=== PATIENT | female | born 1935 ===

== ENCOUNTER 2020-11-10 13:16 | Emergency (ER) | payer MEDICARE, SELFPAY ==
--- NOTE | ~2020-11-10 | CT_ITS ---
EXAMINATION: CT ABDOMEN AND PELVIS WITHOUT CONTRAST CLINICAL INFORMATION: Abdominal discomfort COMPARISON: Renal ultrasound 11/12/2019 TECHNIQUE: Multidetector volumetric imaging was performed from the superior aspect of the liver through the pubic symphysis. Sagittal and coronal reformatted images were obtained on the technologist's workstation. This CT examination was performed using dose optimization techniques as appropriate, variously including the following: *Automated exposure control *Adjustment of mA and/or kV according to patient size (this includes techniques or standardized protocols for targeted exams where dose is matched to indication/reason for exam; i.e. extremities or head) *Use of iterative reconstruction technique DLP: 514 mGy-cm FINDINGS: LUNG BASES: The visualized lung bases are unremarkable. LIVER, GALLBLADDER, AND BILIARY TREE: The liver is normal in size, shape, and attenuation. No focal hepatic lesion or biliary ductal dilatation is present. The gallbladder is unremarkable with no evidence of radiopaque gallstones, gallbladder wall thickening, or obvious pericholecystic inflammatory changes. PANCREAS: Unremarkable. SPLEEN: Unremarkable. ADRENAL GLANDS: Unremarkable. KIDNEYS AND URETERS: Multiple low attenuating and hyperdense renal cysts. These are unchanged from renal ultrasound study 11/12/2019. No hydronephrosis. No renal or ureteral calculus. BLADDER: Unremarkable. GASTROINTESTINAL TRACT: There is no acute abnormality. There is no bowel wall thickening /edema. There is no bowel obstruction. There is a moderate volume of stool in the colon. Appendix surgically absent. Surgical clips right lower quadrant of abdomen The small bowel loops are unremarkable. The stomach is normal. There is no hiatal hernia. ABDOMINAL WALL: There is a sharply marginated lobulated soft tissue lesion in the subcutaneous tissues along the left flank. This measures approximately 9 x 4 x 5 cm. There are coarse calcifications within this lesion. This has a density measurement of 15 Hounsfield units in the noncalcified portions of the lesion. May be complex fluid collections. There is no surrounding inflammation. LYMPH NODES: Normal. VASCULAR: Scattered vascular calcifications of aorta and iliac arteries. There is no aneurysm. PELVIC VISCERA: Uterus is atrophic. Uterus is anteverted. Calcified fibroids in the uterus. There is no adnexal abnormality. OSSEOUS STRUCTURES: Multilevel degenerative spondylosis of the spine. CT/CT abdomen pelvis wo con IMPRESSION: There is no acute abnormality the abdomen or the pelvis.
--- NOTE | ~2020-11-10 | XR_ITS ---
EXAMINATION: XR CHEST CLINICAL INFORMATION: Fall. COMPARISON: Chest x-ray 02/24/2020 TECHNIQUE: 2 views of the chest were obtained. 4:56 PM FINDINGS: No significant abnormality is noted involving the heart, lungs, mediastinum, bony thorax or soft tissues. XR/XR chest 2V IMPRESSION: Unremarkable examination.
[2020-11-10 13:45] VITALS: BP 112/82; BP 166/67; PULSE 60; PULSE 71; RESP 16; TEMP 36.1; O2SAT 94; BMI 28.3
--- NOTE | 2020-11-10 14:23 | ED_ITS ---
HPI - Fall General Source: patient, EMS, RN notes reviewed and old records reviewed Mode of arrival: EMS Limitations: no limitations History of Present Illness HPI Narrative: 84-year-old female here today for complaining of bilateral lower rib and upper abdominal pain when bending. Patient reports that she was brus precious her teeth yesterday when she tripped on her PD on a and fell backwards. Patient reports that she fell on her back, denies hitting head or neck. Today when she was bending over she noticed abdominal discomfort across upper abdomen and lower rib area bilaterally. Patient denies dizziness, syncope, presyncope, CP, PND, SOB with or without exertion, nausea, vomiting, diarrhea. Patient reports that she does not have any urinary frequency or burning. Denies any fever or chills. Denies any COVID exposure Related Data Home Medications Medication Instructions Recorded Confirmed amlodipine 1 tab PO DAILY 05/20/20 05/20/20 estradiol 1 g TOPICAL 2XW 05/20/20 05/20/20 furosemide 1 tab PO DAILY 05/20/20 05/20/20 glipizide 1 tab PO QAM 05/20/20 05/20/20 linagliptin [Tradjenta] 1 tab PO DAILY 05/20/20 05/20/20 lisinopril 1 tab PO DAILY 05/20/20 05/20/20 metoprolol succinate 1 tab PO DAILY 05/20/20 05/20/20 risedronate 1 tab PO QWEEK 05/20/20 05/20/20 simvastatin 1 tab PO BEDTIME 05/20/20 05/20/20 Previous Rx's Medication Instructions Recorded apixaban [Eliquis] 5 mg PO Q12H #60 tab 11/05/20 cefpodoxime 100 mg PO BID #14 tab 11/10/20 apixaban [Eliquis] 5 mg PO BID #120 tab 11/11/20 Allergies Allergy/AdvReac Type Severity Reaction Status Date / Time No Known Allergies Allergy Unverified 03/18/20 16:12 [No Known Allergies*] Review of Systems Review of Systems: Constitutional : No Weight loss, No Fever, No Chills, No Night Sweats, No Fatigue, No Malaise ENT/Mouth : No Hearing loss, No Ear Pain, No Nasal Congestion, No Sinus Pain, No Hoarseness, No sore throat, No Rhinorrhea, No Swallowing Difficulty Eyes: No Eye Pain, No Swelling, No Redness, No Foreign Body, No Discharge, No Vision Changes Cardiovascular : No Chest Pain, No SOB, No Dyspnea on Exertion, No Orthopnea, No Edema, No Palpitations Respiratory : No Cough, No Sputum, No Wheezing, No Smoke Exposure, No Dyspnea Gastrointestinal : No Nausea, No Vomiting, No Diarrhea, No Constipation, upper abdominal Pain, No Hematochezia, No Melena Genitourinary : no irregular bleeding, No Dysuria, No Urinary Frequency, No Hematuria, No Urinary Incontinence, No Urgency, No Flank Pain, No Urinary Flow Changes, No Hesitancy Musculoskeletal : No joint pain, No Myalgias, No Joint Swelling Skin : No Skin Lesions, No rash Neuro : No Weakness, No Numbness, No Paresthesias, No Loss of Consciousness, No Dizziness, No Headache Psych : No Anxiety/Panic, No Depression, No SI/HI/AH/VH, No Social Issues, Heme/Lymph: No Bruising, No Bleeding,No Lymphadenopathy Endocrine : No Polyuria, No Polydipsia, No Temperature Intolerance Yes all other systems are reviewed and are negative PMFSH Past Medical History Medical History (Updated 11/11/20 @ 00:00 by Cheri Graham) Acute respiratory distress Arthritis HTN (hypertension) Hypoxemia Pulmonary embolism Type 2 diabetes mellitus Unsteady gait Family History Family History (Updated 05/20/20 @ 09:14 by Sandra Luque) Family/Other Diabetes Social History Social History (Updated 05/20/20 @ 09:14 by Sandra Luque) Alcohol intake: never Smoking Status: Former smoker Smoked in Last 30 Days: No Use of substances other than those prescribed or required for medical reasons: No Advance Directives: No Advance Directives Information Provided: No Physical Exam Vital Signs: Vital Signs: Last Vital Signs Temp 98.6 F 11/10/20 19:25 Pulse 70 11/10/20 19:25 Resp 18 11/10/20 19:25 BP 157/96 H 11/10/20 19:25 Pulse Ox 97 11/10/20 19:25 Body Mass Index 28.3 Const: General: healthy appearing, no acute distress and well developed Nutritional Appearance: well nourished Orientation/consciousness: patient oriented x3 Neck: Neck: Yes normal visual inspection, Yes full ROM and Yes trachea midline Thyroid: Thyroid normal Chest: Chest palpation & inspection: normal inspection of the chest and normal palpation of entire chest wall Resp: Auscultation: clear to auscultation bilaterally Cardio: Rate: regular rate Rhythm: regular rhythm GI: Inspection: Yes normal to inspection and No distended Palpation (GI): No hepatosplenomegaly present Auscultation: normal bowel sounds Skin: General skin exam: elasticity normal, turgor normal and dry skin Neuro: General: patient oriented x3 Course Course Course Narrative: 84-year-old female here today after sustaining fall yesterday. Patient tripped on her pajamas while brushing her teeth. She fell backwards and hit her upper and lower back on the bathtub. Denies hitting head. Patient examined no bruises on her back or on her abdomen. Patient reports that she was bending over today and developed sharp pain across her upper abdomen and lower r ibs bilaterally. Patient is on Eliquis diagnosed with PE. Has an appointment with her jersey knitter in a couple weeks. Reevaluation(s) Reevaluation #1: Patients labs negative for leukocytosis or anemia. Patient's kidney functions elevated today BUN 35, creatinine 1.7 to last creatinine from August of 2019 was 1.17. Patient is on Eliquis full dose. I will wait for her CT scan will order without a contrast as her kidney functions are slightly elevated. Will order chest x-ray. Patient reports that her pain is under c ontrol denies any additional symptoms. Reevaluation #2: Chest x-ray negative for any abnormalities order 2nd dose of normal saline 500 mL. I will repeat kidney functions as patient is on full therapy of Eliquis. Awaiting for CT scan results. Patient's condition has not changed. Denies any other additional symptoms. Patient is comfortable at this time. Reevaluation #3: CT scan does not show any acuity. Patient's urine is positive for bacteria. We will treat her empirically. Will give her 1st dose here and then send her home with antibiotics. Patient is agreeable to plan of care and verbalizes understanding. - Fall Medical Records Attestation: I reviewed the patient's medical records. Lab Data Result diagrams: 11/10/20 15:09 11/10/20 18:03 Labs: Lab Results 11/10/20 11/10/20 11/10/20 Range/Units 15:09 15:09 15:09 WBC 8.1 (4.8-10.8) X10*3/uL RBC 4.54 (4.20-5.50) X10*6/uL Hgb 12.4 (12.0-16.0) g/dl Hct 38.2 (37-47) % MCV 84.1 (80-98) fL MCH 27.3 (27.0-33.0) pg MCHC 32.5 (31.0-35.0) g/dl RDW 14.6 (11.0-16.0) % Plt Count 145 L (160-400) X10*3/uL MPV 9.8 (9.4-12.3) fL Immature Gran % (Auto) 0.7 H (0.0-0.4) % Neut % (Auto) 79.1 H (45-73) % Lymph % (Auto) 11.2 L (20-40) % [place] % (Auto) 7.6 (2-11) % Eos % (Auto) 1.0 (0-4) % Baso % (Auto) 0.4 (0-2) % Lymph # (Auto) 0.9 L (1.2-4.9) X10*3/uL [place] # (Auto) 0.6 (0.1-1.2) X10*3/uL Eos # (Auto) 0.1 (0.0-0.4) X10*3/uL Baso # (Auto) 0.0 (0.0-0.2) X10*3/uL Abs Immat Gran (auto) 0.06 H (0.00-0.03) X10*3/uL Absolute Neuts (auto) 6.4 (2.0-8.3) X10*3/uL Absolute Nucleated RBC 0.000 (0.0-0.012) X10*3/uL Nucleated RBC % (auto) 0.0 (0.0-0.2) /100WBC Sodium 137 (135-145) mmol/L Potassium 3.9 (3.3-5.1) mmol/L Chloride 100 (96-108) mmol/L Carbon Dioxide 25 (22-29) mmol/L Anion Gap 16 (12-20) BUN 35 H D (9-16) mg/dL Creatinine 1.72 H (0.5-1.4) mg/dL Estim Creat Clear Calc 21.9 Estimated GFR 28 Random Glucose 175 H (60-115) mg/dL Calcium 9.1 D (8.4-10.2) mg/dL Total Bilirubin 1.3 H (0.0-1.0) mg/dL AST 18 (5-31) U/L ALT 10 (0-31) U/L Alkaline Phosphatase 79 D (39-117) U/L Total Protein 7.3 (6.5-8.0) g/dL Albumin 3.9 (3.5-5.0) g/dL Lipase 33 (8-78) U/L Urine Color YELLOW Urine Appearance HAZY Urine pH 5.5 (5.0-8.0) Ur Specific [place] 1.015 (1.005-1.025) Urine Protein NEG (NEG-TRACE) MG/DL Urine Glucose (UA) NEG (NEG) MG/DL Urine Ketones NEG (NEG) MG/DL Urine Blood 1+ H (NEG) Urine Nitrite NEG (NEG) Ur Leukocyte Esterase 3+ H (NEG) Urine RBC 1-4 (0) /HPF Urine WBC 15-29 H (0-4) /HPF Ur Squamous Epith Cells 1+ /LPF Urine Bacteria 3+ /LPF /06/21 Range/Units 18:03 WBC (4.8-10.8) X10*3/uL RBC (4.20-5.50) X10*6/uL Hgb (12.0-16.0) g/dl Hct (37-47) % MCV (80-98) fL MCH (27.0-33.0) pg MCHC (31.0-35.0) g/dl RDW (11.0-16.0) % Plt Count (160-400) X10*3/uL MPV (9.4-12.3) fL Immature Gran % (Auto) (0.0-0.4) % Neut % (Auto) (45-73) % Lymph % (Auto) (20-40) % [place] % (Auto) (2-11) % Eos % (Auto) (0-4) % Baso % (Auto) (0-2) % Lymph # (Auto) (1.2-4.9) X10*3/uL [place] # (Auto) (0.1-1.2) X10*3/uL Eos # (Auto) (0.0-0.4) X10*3/uL Baso # (Auto) (0.0-0.2) X10*3/uL Abs Immat Gran (auto) (0.00-0.03) X10*3/uL Absolute Neuts (auto) (2.0-8.3) X10*3/uL Absolute Nucleated RBC (0.0-0.012) X10*3/uL Nucleated RBC % (auto) (0.0-0.2) /100WBC Sodium (135-145) mmol/L Potassium (3.3-5.1) mmol/L Chloride (96-108) mmol/L Carbon Dioxide (22-29) mmol/L Anion Gap (12-20) BUN 34 H (9-16) mg/dL Creatinine 1.51 H (0.5-1.4) mg/dL Estim Creat Clear Calc 25.0 Estimated GFR 33 Random Glucose (60-115) mg/dL Calcium (8.4-10.2) mg/dL Total Bilirubin (0.0-1.0) mg/dL AST (5-31) U/L ALT (0-31) U/L Alkaline Phosphatase (39-117) U/L Total Protein (6.5-8.0) g/dL Albumin (3.5-5.0) g/dL Lipase (8-78) U/L Urine Color Urine Appearance Urine pH (5.0-8.0) Ur Specific [place] (1.005-1.025) Urine Protein (NEG-TRACE) MG/DL Urine Glucose (UA) (NEG) MG/DL Urine Ketones (NEG) MG/DL Urine Blood (NEG) Urine Nitrite (NEG) Ur Leukocyte Esterase (NEG) Urine RBC (0) /HPF Urine WBC (0-4) /HPF Ur Squamous Epith Cells /LPF Urine Bacteria /LPF Imaging Data Chest x-ray: Radiologist's impression: FINDINGS: No significant abnormality is noted involving the heart, lungs, mediastinum, bony thorax or soft tissues. XR/XR chest 2V IMPRESSION: Unremarkable examination. CT scan - abdomen: Radiologist's impression: FINDINGS: LUNG BASES: The visualized lung bases are unremarkable. LIVER, GALLBLADDER, AND BILIARY TREE: The liver is normal in size, shape, and attenuation. No focal hepatic lesion or biliary ductal dilatation is present. The gallbladder is unremarkable with no evidence of radiopaque gallstones, gallbladder wall thickening, or obvious pericholecystic inflammatory changes. PANCREAS: Unremarkable. SPLEEN: Unremarkable. ADRENAL GLANDS: Unremarkable. KIDNEYS AND URETERS: Multiple low attenuating and hyperdense renal cysts. These are unchanged from renal ultrasound study 11/12/2019. No hydronephrosis. No renal or ureteral calculus. BLADDER: Unremarkable. GASTROINTESTINAL TRACT: There is no acute abnormality. There is no bowel wall thickening /edema. There is no bowel obstruction. There is a moderate volume of stool in the colon. Appendix surgically absent. Surgical clips right lower quadrant of abdomen The small bowel loops are unremarkable. The stomach is normal. There is no hiatal hernia. ABDOMINAL WALL: There is a sharply marginated lobulated soft tissue lesion in the subcutaneous tissues along the left flank. This measures approximately 9 x 4 x 5 cm. There are coarse calcifications within this lesion. This has a density measurement of 15 Hounsfield units in the noncalcified portions of the lesion. May be complex fluid collections. There is no surrounding inflammation. LYMPH NODES: Normal. VASCULAR: Scattered vascular calcifications of aorta and iliac arteries. There is no aneurysm. PELVIC VISCERA: Uterus is atrophic. Uterus is anteverted. Calcified fibroids in the uterus. There is no adnexal abnormality. OSSEOUS STRUCTURES: Multilevel degenerative spondylosis of the spine. CT/CT abdomen pelvis wo con IMPRESSION: There is no acute abnormality the abdomen or the pelvis. Discharge Plan Discharge Clinical Impression: Contusion, Fall Patient Disposition: Home, Self-Care Instructions: Fall Prevention for Older Adults (ED), Contusion in Adults (ED) Additional Instructions: You were seen here today after sustaining fall yesterday. You were complaining of upper abdominal discomfort when bending. Your chest x-ray was negative for any acute findings. Your CT scan also was negative for any acute findings. Your kidney functions were elevated. We hydrate you here with 1 L of fluids however your kidneys improved but continues to be elevated. You are taking m edication to thin your blood please follow up with Dr. Alvarado at [phone]. You have a mild urinary tract infection I am putting you on antibiotic please take it as directed. Make sure you increase fluids intake. You may return to emergency department if you experience worsening symptoms or if you experience any other concerning symptoms. Prescriptions: New cefpodoxime 100 mg tablet 100 mg PO BID Qty: 14 RF: 0 No Action metoprolol succinate 50 mg tablet extended release 24 hr 1 tab PO DAILY RF: 0 amlodipine 5 mg tablet 1 tab PO DAILY RF: 0 glipizide 2.5 mg tablet extended release 24hr 1 tab PO QAM RF: 0 simvastatin 20 mg tablet 1 tab PO BEDTIME RF: 0 lisinopril 10 mg tablet 1 tab PO DAILY RF: 0 furosemide 20 mg tablet 1 tab PO DAILY RF: 0 estradiol 0.01 % (0.1 mg/gram) cream 1 g topical 2XW RF: 0 risedronate 35 mg tablet 1 tab PO QWEEK RF: 0 Tradjenta 5 mg tablet 1 tab PO DAILY RF: 0 Eliquis 5 mg tablet 5 mg PO Q12H Qty: 60 RF: 6 Eliquis 5 mg Tablet 5 mg PO BID Qty: 120 RF: 4 Interventions: ED Discharge Assessment Last Done: 11/10/20 19:54 Discharge Date/Time: 11/10/20 19:58
--- NOTE | 2020-11-10 14:40 | PC.NURSE ---
pt's Jonh ([phone]) called for an update on his .
--- NOTE | 2020-11-10 14:44 | ECG_ITS ---
Test Reason : FALL Blood Pressure : / mmHG Vent. Rate : 069 BPM Atrial Rate : 069 BPM P-R Int : 242 ms QRS Dur : 084 ms QT Int : 434 ms P-R-T Axes : 073 013 044 degrees QTc Int : 465 ms Sinus rhythm with 1st degree A-V block Otherwise normal ECG When compared with ECG of 26-FEB-2020 14:40, Nonspecific T wave abnormality no longer evident in Anterior leads Referred By: Koki Del Castillo Electronically Signed By:JULIO CESAR LEDEZMA MD
[2020-11-10] MEDS: 0.9 % Sodium Chloride 500 ML IV ×2 (15:11→17:30)
[2020-11-10 15:16] LABS: MANUAL DIFF FLAG NO
[2020-11-10 15:19] LABS: Basophils Percent Auto 0.4 % (0-2); Eosinophils Absolute Auto 0.1 X10*3/uL (0.0-0.4); Hematocrit 38.2 % (37-47); Hemoglobin 12.4 g/dl (12.0-16.0); Imm Gran Abs Auto 0.06 X10*3/uL (0.00-0.03); Imm Gran Pct Auto 0.7 % (0.0-0.4); Lymphocytes Absolute Auto 0.9 X10*3/uL (1.2-4.9); Lymphocytes Percent Auto 11.2 % (20-40); Mean Corpuscular HGB Conc 32.5 g/dl (31.0-35.0); Mean Corpuscular Hemoglobin 27.3 pg (27.0-33.0); Mean Corpuscular Volume 84.1 fL (80-98); Mean Platelet Volume 9.8 fL (9.4-12.3); Monocytes Absolute Auto 0.6 X10*3/uL (0.1-1.2); Monocytes Percent Auto 7.6 % (2-11); Neutrophils Absolute Auto 6.4 X10*3/uL (2.0-8.3); Neutrophils Percent Auto 79.1 % (45-73); Platelet Count 145 X10*3/uL (160-400); Red Blood Count 4.54 X10*6/uL (4.20-5.50); Red Cell Distribution Width 14.6 % (11.0-16.0); White Blood Count 8.1 X10*3/uL (4.8-10.8)
[2020-11-10 15:21] LABS: Appearance Urine HAZY; Color Urine YELLOW; Glucose Urine UA NEG (NEG); Leukocyte Esterase Urine 3+ (NEG); Nitrite Urine NEG (NEG); PH 5.5 (5.0-8.0); Specific Gravity - Urine 1.015 (1.005-1.025); UACC Culture Trigger YES; Urine Blood 1+ (NEG); Urine Ketones NEG (NEG); Urine Protein NEG (NEG-TRACE)
[2020-11-10 15:31] LABS: Bacteria Urine 3+ /LPF; Squamous Epithelial Cell Urine 1+ /LPF
[2020-11-10 15:41] LABS: Alanine Aminotransferase 10 U/L (0-31); Albumin Level 3.9 g/dL (3.5-5.0); Alkaline Phosphatase 79 U/L (39-117); Anion Gap 16 (12-20); Aspartate Amino Transferase 18 U/L (5-31); Bilirubin Total 1.3 mg/dL (0.0-1.0); Blood Urea Nitrogen 35 mg/dL (9-16); Calcium 9.1 mg/dL (8.4-10.2); Carbon Dioxide 25 mmol/L (22-29); Chloride 100 mmol/L (96-108); Creatinine Clr Calc Pharmacy 21.9; Estimated Glomerular Filt Rate 28; Glucose Random 175 mg/dL (60-115); Potassium 3.9 mmol/L (3.3-5.1); Sodium 137 mmol/L (135-145); Total Protein 7.3 g/dL (6.5-8.0)
[2020-11-10 16:00] VITALS: BP 149/84; PULSE 69; RESP 18; O2SAT 98
[2020-11-10 16:58] LABS: Lipase 33 U/L (8-78)
[2020-11-10 18:34] LABS: Blood Urea Nitrogen 34 mg/dL (9-16); Estimated Glomerular Filt Rate 33
[2020-11-10 19:25] VITALS: BP 157/96; PULSE 70; RESP 18; TEMP 37; O2SAT 97
== END 2020-11-10 19:58 | disposition home or self-care (01) ==
PROVIDERS: Nurse Practitioner Family; Emergency Provider Internal Medicine; PCP Internal Medicine
DX: S30.1XXA Contusion of abdominal wall, initial encounter (principal); R07.81 Pleurodynia; I10 Essential (primary) hypertension; R10.9 Unspecified abdominal pain; W01.0XXA Fall on same level from slipping, tripping and stumbling without subsequent striking against object, initial encounter; Y93.9 Activity, unspecified; Y92.9 Unspecified place or not applicable; Y99.9 Unspecified external cause status; Z79.899 Other long term (current) drug therapy; Z87.891 Personal history of nicotine dependence
CPT/HCPCS: 36415; 71046; 74176; 80053; 81001; 81003; 82565; 83690; 84520; 85025; 87086; 87088; 87186; 93005; 96360; 99285

== ENCOUNTER 2021-07-07 09:51 | Outpatient (REF) | payer MEDICARE, SELFPAY ==
[2021-07-07 14:20] LABS: Estimated Average Glucose 197 mg/dL; Hemoglobin A1c % 8.5 %
[2021-07-07 14:30] LABS: Alanine Aminotransferase 9 U/L (0-31); Albumin Level 3.8 g/dL (3.5-5.0); Alkaline Phosphatase 83 U/L (39-117); Anion Gap 14 (12-20); Aspartate Amino Transferase 16 U/L (5-31); Bilirubin Total 1.2 mg/dL (0.0-1.0); Blood Urea Nitrogen 21 mg/dL (9-16); Calcium 8.9 mg/dL (8.4-10.2); Carbon Dioxide 21 mmol/L (22-29); Chloride 107 mmol/L (96-108); Estimated Glomerular Filt Rate 40; Glucose Random 272 mg/dL (60-115); Potassium 4.1 mmol/L (3.3-5.1); Sodium 138 mmol/L (135-145)
== END 2021-07-07 09:52 | disposition home or self-care (01) ==
LOC: HO.10HDL 09:51
PROVIDERS: Visit Provider Internal Medicine
DX: E11.65 Type 2 diabetes mellitus with hyperglycemia (principal); E11.22 Type 2 diabetes mellitus with diabetic chronic kidney disease; I12.9 Hypertensive chronic kidney disease with stage 1 through stage 4 chronic kidney disease, or unspecified chronic kidney disease; N18.9 Chronic kidney disease, unspecified; E78.00 Pure hypercholesterolemia, unspecified; I26.99 Other pulmonary embolism without acute cor pulmonale
CPT/HCPCS: 36415; 80053; 83036

== ENCOUNTER 2021-10-10 07:43 | Outpatient (REF) | payer MEDICARE, SELFPAY ==
[2021-10-10 10:39] LABS: MANUAL DIFF FLAG NO
[2021-10-10 10:45] LABS: Basophils Percent Auto 0.4 % (0-2); Eosinophils Absolute Auto 0.1 X10*3/uL (0.0-0.4); Eosinophils Percent Auto 1.8 % (0-4); Hematocrit 34.7 % (37.0-47.0); Hemoglobin 10.6 g/dl (12.0-16.0); Imm Gran Abs Auto 0.01 X10*3/uL (0.00-0.03); Imm Gran Pct Auto 0.2 % (0.0-0.4); Lymphocytes Absolute Auto 1.3 X10*3/uL (1.2-4.9); Lymphocytes Percent Auto 25.9 % (20-40); Mean Corpuscular HGB Conc 30.5 g/dl (31.0-35.0); Mean Corpuscular Hemoglobin 25.2 pg (27.0-33.0); Mean Corpuscular Volume 82.4 fL (80.0-98.0); Mean Platelet Volume 10.2 fL (9.4-12.3); Monocytes Absolute Auto 0.5 X10*3/uL (0.1-1.2); Monocytes Percent Auto 10.1 % (2-11); Neutrophils Absolute Auto 3.1 x10*3/uL (2.0-8.3); Neutrophils Percent Auto 61.6 % (45-73); Platelet Count 186 X10*3/uL (160-400); Red Blood Count 4.21 X10*6/uL (4.20-5.50); Red Cell Distribution Width 15.3 % (11.0-16.0); White Blood Count 5.1 X10*3/uL (4.8-10.8)
[2021-10-10 10:58] LABS: Alanine Aminotransferase 15 U/L (0-31); Albumin Level 3.7 g/dL (3.5-5.0); Alkaline Phosphatase 81 U/L (39-117); Anion Gap 14 (12-20); Aspartate Amino Transferase 18 U/L (5-31); Blood Urea Nitrogen 17 mg/dL (9-16); Carbon Dioxide 21 mmol/L (22-29); Chloride 106 mmol/L (96-108); Cholesterol 136 mg/dL; Estimated Glomerular Filt Rate 45; Glucose Random 204 mg/dL (60-115); HDL Cholesterol 53 mg/dL; LDL Cholesterol Calculated 61 mg/dl; Potassium 4.3 mmol/L (3.3-5.1); Sodium 137 mmol/L (135-145); Total Protein 6.8 g/dL (6.5-8.0); Triglycerides 110 mg/dL
[2021-10-10 11:06] LABS: Estimated Average Glucose 232 mg/dL; Hemoglobin A1c % 9.7 %
[2021-10-10 11:19] LABS: Thyroid Stimulating Hormone 1.92 uIU/mL (0.32-4.0)
[2021-10-10 11:27] LABS: Vitamin B12 155 pg/mL (200-900)
[2021-10-10 12:09] LABS: Creatinine Urine 52.83 mg/dL; Microalbum/Creatinine Ratio Ur 100.3 ug/mg cr
== END 2021-10-10 07:44 | disposition home or self-care (01) ==
LOC: HO.10HDL 07:43
PROVIDERS: Visit Provider Internal Medicine
DX: E11.65 Type 2 diabetes mellitus with hyperglycemia (principal); E78.00 Pure hypercholesterolemia, unspecified; I26.99 Other pulmonary embolism without acute cor pulmonale; I12.9 Hypertensive chronic kidney disease with stage 1 through stage 4 chronic kidney disease, or unspecified chronic kidney disease; N18.9 Chronic kidney disease, unspecified; E11.22 Type 2 diabetes mellitus with diabetic chronic kidney disease
CPT/HCPCS: 36415; 80053; 80061; 82043; 82607; 83036; 84443; 85025

== ENCOUNTER 2022-01-05 08:26 | Outpatient (REF) | payer MEDICARE, SELFPAY ==
[2022-01-05 10:22] LABS: MANUAL DIFF FLAG NO
[2022-01-05 10:27] LABS: Basophils Percent Auto 0.4 % (0-2); Eosinophils Absolute Auto 0.1 X10*3/uL (0.0-0.4); Eosinophils Percent Auto 0.9 % (0-4); Hematocrit 34.9 % (37.0-47.0); Hemoglobin 10.8 g/dl (12.0-16.0); Imm Gran Abs Auto 0.02 X10*3/uL (0.00-0.03); Imm Gran Pct Auto 0.3 % (0.0-0.4); Lymphocytes Absolute Auto 1.4 X10*3/uL (1.2-4.9); Lymphocytes Percent Auto 19.9 % (20-40); Mean Corpuscular HGB Conc 30.9 g/dl (31.0-35.0); Mean Corpuscular Hemoglobin 24.8 pg (27.0-33.0); Mean Platelet Volume 9.8 fL (9.4-12.3); Monocytes Absolute Auto 0.5 X10*3/uL (0.1-1.2); Monocytes Percent Auto 7.8 % (2-11); Neutrophils Absolute Auto 4.8 x10*3/uL (2.0-8.3); Neutrophils Percent Auto 70.7 % (45-73); Platelet Count 215 X10*3/uL (160-400); Red Blood Count 4.36 X10*6/uL (4.20-5.50); Red Cell Distribution Width 15.9 % (11.0-16.0); White Blood Count 6.8 X10*3/uL (4.8-10.8)
[2022-01-05 10:42] LABS: Alanine Aminotransferase 10 U/L (0-31); Albumin Level 3.7 g/dL (3.5-5.0); Alkaline Phosphatase 97 U/L (39-117); Anion Gap 11 (12-20); Aspartate Amino Transferase 15 U/L (5-31); Blood Urea Nitrogen 18 mg/dL (9-16); Calcium 8.7 mg/dL (8.4-10.2); Carbon Dioxide 24 mmol/L (22-29); Chloride 106 mmol/L (96-108); Estimated Glomerular Filt Rate 49; Glucose Fasting 220 mg/dL (60-99); Potassium 4.3 mmol/L (3.3-5.1); Sodium 137 mmol/L (135-145); Total Protein 6.9 g/dL (6.5-8.0)
[2022-01-05 10:44] LABS: Estimated Average Glucose 212 mg/dL
[2022-01-05 11:03] LABS: Ferritin 22 ng/mL (10-250)
[2022-01-05 11:07] LABS: Vitamin B12 378 pg/mL (200-900)
== END 2022-01-05 08:27 | disposition home or self-care (01) ==
LOC: HO.10HDL 08:26
PROVIDERS: Visit Provider Internal Medicine
DX: Z00.01 Encounter for general adult medical examination with abnormal findings (principal); D51.9 Vitamin B12 deficiency anemia, unspecified; E11.65 Type 2 diabetes mellitus with hyperglycemia; R80.8 Other proteinuria
CPT/HCPCS: 36415; 80053; 82607; 82728; 83036; 85025

== ENCOUNTER 2022-04-12 09:52 | Outpatient (REF) | payer MEDICARE, SELFPAY ==
[2022-04-12 10:30] LABS: MANUAL DIFF FLAG NO
[2022-04-12 10:37] LABS: Basophils Percent Auto 0.6 % (0-2); Eosinophils Percent Auto 0.6 % (0-4); Hematocrit 34.8 % (37.0-47.0); Hemoglobin 10.7 g/dl (12.0-16.0); Imm Gran Abs Auto 0.02 X10*3/uL (0.00-0.03); Imm Gran Pct Auto 0.4 % (0.0-0.4); Lymphocytes Percent Auto 18.6 % (20-40); Mean Corpuscular HGB Conc 30.7 g/dl (31.0-35.0); Mean Corpuscular Hemoglobin 24.7 pg (27.0-33.0); Mean Corpuscular Volume 80.4 fL (80.0-98.0); Mean Platelet Volume 9.3 fL (9.4-12.3); Monocytes Absolute Auto 0.6 X10*3/uL (0.1-1.2); Monocytes Percent Auto 10.7 % (2-11); Neutrophils Absolute Auto 3.8 x10*3/uL (2.0-8.3); Neutrophils Percent Auto 69.1 % (45-73); Platelet Count 258 X10*3/uL (160-400); Red Blood Count 4.33 X10*6/uL (4.20-5.50); Red Cell Distribution Width 18.4 % (11.0-16.0); White Blood Count 5.4 X10*3/uL (4.8-10.8)
[2022-04-12 10:42] LABS: Estimated Average Glucose 203 mg/dL; Hemoglobin A1c % 8.7 %
[2022-04-12 12:23] LABS: Alanine Aminotransferase 7 U/L (0-31); Albumin Level 3.7 g/dL (3.5-5.0); Alkaline Phosphatase 136 U/L (39-117); Anion Gap 18 (12-20); Aspartate Amino Transferase 11 U/L (5-31); Blood Urea Nitrogen 22 mg/dL (9-16); Calcium 8.9 mg/dL (8.4-10.2); Carbon Dioxide 21 mmol/L (22-29); Chloride 104 mmol/L (96-108); Estimated Glomerular Filt Rate 38; Glucose Fasting 363 mg/dL (60-99); Potassium 5.7 mmol/L (3.3-5.1); Sodium 137 mmol/L (135-145); Total Protein 7.1 g/dL (6.5-8.0)
== END 2022-04-12 09:53 | disposition home or self-care (01) ==
LOC: HO.10HDL 09:52
PROVIDERS: Visit Provider Internal Medicine
DX: E11.65 Type 2 diabetes mellitus with hyperglycemia (principal); I12.9 Hypertensive chronic kidney disease with stage 1 through stage 4 chronic kidney disease, or unspecified chronic kidney disease; E11.22 Type 2 diabetes mellitus with diabetic chronic kidney disease; D63.1 Anemia in chronic kidney disease; N18.9 Chronic kidney disease, unspecified; D64.89 Other specified anemias
CPT/HCPCS: 36415; 80053; 83036; 85025

== ENCOUNTER 2022-07-06 09:02 | Emergency (ER) | payer MEDICARE, SELFPAY ==
[2022-07-06 09:20] VITALS: BP 128/51; PULSE 90; RESP 18; TEMP 36.1; O2SAT 98; BMI 26.3
== END 2022-07-06 12:07 | disposition left against medical advice (07) ==
PROVIDERS: Emergency Provider Emergency Medicine; PCP Internal Medicine
DX: R33.9 Retention of urine, unspecified (principal)
CPT/HCPCS: 99281

== ENCOUNTER 2022-07-06 11:58 | Emergency (ER) | payer MEDICARE, SELFPAY ==
--- NOTE | ~2022-07-06 | CT_ITS ---
EXAMINATION: CT ABDOMEN AND PELVIS WITHOUT CONTRAST CLINICAL INFORMATION: Unable to urinate with constipation COMPARISON: CT abdomen pelvis 11/10/2020 TECHNIQUE: Multidetector volumetric imaging was performed from the superior aspect of the liver through the pubic symphysis. Sagittal and coronal reformatted images were obtained on the technologist's workstation. This CT examination was performed using dose optimization techniques as appropriate, variously including the following: *Automated exposure control *Adjustment of mA and/or kV according to patient size (this includes techniques or standardized protocols for targeted exams where dose is matched to indication/reason for exam; i.e. extremities or head) *Use of iterative reconstruction technique DLP: 460 mGy-cm FINDINGS: LUNG BASES: The visualized lung bases are unremarkable. LIVER, GALLBLADDER, AND BILIARY TREE: The liver is normal in size, shape, and attenuation. No focal hepatic lesion or biliary ductal dilatation is present. The gallbladder is unremarkable with no evidence of radiopaque gallstones, gallbladder wall thickening, or obvious pericholecystic inflammatory changes. PANCREAS: Unremarkable. SPLEEN: Unremarkable. ADRENAL GLANDS: Unremarkable. KIDNEYS AND URETERS: In the left kidney, 2 Bosniak class I cysts are present the largest measuring 2.7 cm at the lower pole. These need no additional imaging or follow-up. No solid renal masses. No calcifications. No hydronephrosis. In the right kidney, there are 2 Bosniak class I simple cysts present along with 2 Bosniak class II renal cysts present measuring 52 and 79 Hounsfield units each. No renal calculi, solid masses or hydronephrosis is seen. BLADDER: There is mild descent of the bladder which is at the anterior aspect of the pubic symphysis with thickening of the wall at the base measuring almost a centimeter in thickness. Malignancy cannot be entirely excluded but may be secondary to chronic inflammation. There is also mild prolapse of the vagina, cervix and uterus present as well. GASTROINTESTINAL TRACT: A small hiatal hernia is present rThe small and large bowel are unremarkable. The appendix is unremarkable. ABDOMINAL WALL: No significant hernia is appreciated. Large calcified subcutaneous mass left buttock measuring 5.0 x 4.0 x 5.5 cm, probably an old hematoma LYMPH NODES: No retroperitoneal lymphadenopathy. VASCULAR: Calcific plaque without aneurysm. PELVIC VISCERA: There is mild prolapse of the uterus. There is an exophytic pedunculated calcified posterior 2.2 cm fibroid. An abnormal adnexal mass is not seen. OSSEOUS STRUCTURES: Severe degenerative changes present in the spine most marked from L1 through L4 and at L5-S1 CT/CT abdomen pelvis wo IV con IMPRESSION: 1. There is mild descent of the bladder which is at the inferior aspect of the pubic symphysis on these nonstress views which I suspect with Valsalva and attempts to void significantly worsens. There is thickening of the bladder wall at its base measuring almost a centimeter in thickness. Malignancy cannot be entirely excluded but this may be secondary to chronic inflammation. There is also mild prolapse of the vagina, cervix and uterus present as well. All of this is probably related to the patient's voiding issues and urologic consultation is recommended with possible cystoscopy or pelvic MR. 2. Incidental note made of a small hiatal hernia, calcified left buttock mass, severe degenerative changes in the spine and other findings described above. Fleischner guidelines were followed.
--- NOTE | ~2022-07-06 | XR_ITS ---
EXAMINATION: XR ABDOMEN KUB CLINICAL INDICATION: Constipation COMPARISON: CT of November 10, 2020 TECHNIQUE: AP view of the abdomen. FINDINGS: There is scoliosis of the lumbar spine convex left with multilevel degenerative disc disease and spurring. Psoas margins are intact. Patient status post previous right lower quadrant surgery with clips in place. There is some calcification seen adjacent to the right L2 and L3 vertebral bodies which on previous CT scan are seen to represent densities related to the pancreas. There is a moderate stool burden present without dilated loops of large or small bowel. Soft tissue calcification is seen adjacent to the left iliac crest. There is a calcified fibroid seen within the pelvis. XR/XR KUB IMPRESSION: Moderate colonic stool burden. Degenerative change of the lumbar spine.
[2022-07-06 13:10] VITALS: BP 147/55; PULSE 85; RESP 18; TEMP 36.1; O2SAT 99; BMI 25.6
--- NOTE | 2022-07-06 13:15 | ED.FEMALEGU ---
HPI - Female Genitourinary General Source: patient <Brandy Connor MD - Last Filed: 07/06/22 20:57> Mode of arrival: ambulatory <Brandy Connor MD - Last Filed: 07/06/22 20:57> Limitations: no limitations <Brandy Connor MD - Last Filed: 07/06/22 20:57> History of Present Illness HPI Narrative: Patient comes to the emergency room complaining of constipation for 4 days. Patient states that <Brandy Connor MD - Last Filed: 07/06/22 20:57> Related Data Home medications: Home Medications Medication Instructions Recorded Confirmed amlodipine 5 mg tablet 1 tab PO DAILY 05/20/20 06/13/22 estradiol 0.01% (0.1 mg/gram) 1 g topical 2XW 05/20/20 06/13/22 vaginal cream furosemide 20 mg tablet 1 tab PO DAILY 05/20/20 06/13/22 glipizide 2.5 mg tablet, extended 1 tab PO QAM 05/20/20 06/13/22 release 24 hr lisinopril 10 mg tablet 1 tab PO DAILY 05/20/20 06/13/22 metoprolol succinate 50 mg 1 tab PO DAILY 05/20/20 06/13/22 tablet,extended release 24 hr simvastatin 20 mg tablet 1 tab PO BEDTIME 05/20/20 06/13/22 Previous Rx's Medication Instructions Recorded apixaban 5 mg tablet (Eliquis) 5 mg PO BID #120 tabs 10/05/21 cefuroxime axetil 500 mg tablet 500 mg PO BID #14 tabs 07/06/22 polyethylene glycol 3350 17 17 g PO DAILY #238 grams 07/06/22 gram/dose oral powder (Miralax) <ONEIDA Casas - Last Filed: 07/10/22 20:59> Allergies/Adverse reactions: Allergies Allergy/AdvReac Type Severity Reaction Status Date / Time No Known Allergies Allergy Verified 07/06/22 13:14 [No Known Allergies*] <ONEIDA Casas - Last Filed: 07/10/22 20:59> PMFSH Past Medical History Medical History: Medical History Acute respiratory distress Arthritis HTN (hypertension) Hypoxemia Pulmonary embolism Type 2 diabetes mellitus Unsteady gait <SAUD CasasBC - Last Filed: 07/10/22 20:59> Family History Family History: Family History (Updated 06/13/22 @ 14:16 by Yara Valerio CMA) Family/Other Diabetes Other No family history of cancer <SAUD CasasBC - Last Filed: 07/10/22 20:59> Social History Social History: Social History (Updated 06/13/22 @ 14:16 by Yara Valerio CMA) Household Members: Spouse Housing: House Are you a primary personal care assistant to a significant other at home: No Do you presently have visiting nurse or other home services: No Alcohol intake: never Patient Tobacco Use Status: Never used Tobacco Smoked in Last 30 Days: No Use of substances other than those prescribed or required for medical reasons: No Advance Directives: No service: No Current occupational status: retired <ONEIDA Casas - Last Filed: 07/10/22 20:59> Physical Exam Vital Signs: Vital Signs: Last Vital Signs Temp 98.1 F 07/06/22 16:48 Pulse 78 07/06/22 19:40 Resp 20 07/06/22 19:40 BP 178/95 H 07/06/22 19:40 Pulse Ox 100 07/06/22 19:40 O2 Del Method 07/06/22 19:40 BMI result Body Mass Index 25.6 <SAUD CasasBC - Last Filed: 07/10/22 20:59> Vital Signs: Last Vital Signs Temp 98.1 F 07/06/22 16:48 Pulse 78 07/06/22 19:40 Resp 20 07/06/22 19:40 BP 178/95 H 07/06/22 19:40 Pulse Ox 100 07/06/22 19:40 O2 Del Method 07/06/22 19:40 BMI result Body Mass Index 25.6 <Brandy Connor MD - Last Filed: 07/06/22 20:57> Course Course Course Narrative: 07/06/2022 2810 RME: 86-year-old female is here today for constipation. Patient states that she has not had a bowel movement for 4 days. Patient also reports that she was unable to urinate all night and just had small amount of urine this morning. Patient denies any abdominal pain or discomfort. No nausea or vomiting. Patient states that usually she goes to the bathroom normal. Occasionally she uses milk of magnesia at and mineral oil and has no trouble going to the bathroom. Patient denies melena, hematochezia, unintentional weight loss or ribbon like stools. Patient is on Eliquis for history of PE will order urine, <ONEIDA Caass - Last Filed: 07/10/22 20:59> Reevaluation(s) Reevaluation #1: Patient unable to urinate. Will send her for KUB to rule impaction. <ONEIDA Casas - Last Filed: 07/10/22 20:59> Medications Administered Discontinued Medications Generic Name Dose Route Start Last Admin Trade Name Freq PRN Reason Stop Dose Admin Ceftriaxone Sodium 1 gm/ 0 gm 07/06/22 17:25 07/06/22 17:51 Lidocaine HCl 2.1 ml IM 07/06/22 17:26 1 kit ONCE ONE Administration Docusate Sodium 100 mg 07/06/22 13:19 07/06/22 16:51 Docusate Sodium 100 Mg Capsule PO 07/06/22 13:20 100 mg ONCE ONE Administration Senna 8.6 mg 07/06/22 13:19 07/06/22 16:51 Sennosides 8.6 Mg Tablet PO 07/06/22 13:20 8.6 mg ONCE ONE Administration <SHARIFA Casas-BC - Last Filed: 07/10/22 20:59> Medications Administered Discontinued Medications Generic Name Dose Route Start Last Admin Trade Name Freq PRN Reason Stop Dose Admin Ceftriaxone Sodium 1 gm/ 0 gm 07/06/22 17:25 07/06/22 17:51 Lidocaine HCl 2.1 ml IM 07/06/22 17:26 1 kit ONCE ONE Administration Docusate Sodium 100 mg 07/06/22 13:19 07/06/22 16:51 Docusate Sodium 100 Mg Capsule PO 07/06/22 13:20 100 mg ONCE ONE Administration Senna 8.6 mg 07/06/22 13:19 07/06/22 16:51 Sennosides 8.6 Mg Tablet PO 07/06/22 13:20 8.6 mg ONCE ONE Administration <Brandy Connor MD - Last Filed: 07/06/22 20:57> Medical Decision Making Medical Decision Making MDM Narrative: I discussed the labs and imaging with the patient, patient does have a UTI, patient was given IM ceftriaxone with lidocaine. The scan shows thickening of the bladder wall, malignancy cannot be excluded. Patient will follow-up with urology. Patient has no dysuria. Patient was given 1 enema in the emergency room, patient had a successful bowel movement and feels much better. <Brandy Connor MD - Last Filed: 07/06/22 20:57> Differential Diagnosis Differential Diagnoses: The differential diagnosis associated with the presentation includes (Constipation, small-bowel obstruction) <Brandy Connor MD - Last Filed: 07/06/22 20:57> Lab Data Result Diagrams: 07/06/22 16:13 07/06/22 16:13 <SHARIFA Casas- - Last Filed: 07/10/22 20:59> Labs: Lab Results 07/06/22 07/06/22 07/06/22 Range/Units 14:57 16:13 16:13 WBC 6.5 (4.8-10.8) X10*3/uL RBC 4.36 (4.20-5.50) X10*6/uL Hgb 10.4 L (12.0-16.0) g/dl Hct 34.2 L (37.0-47.0) % MCV 78.4 L (80.0-98.0) fL MCH 23.9 L (27.0-33.0) pg MCHC 30.4 L (31.0-35.0) g/dl RDW 15.3 (11.0-16.0) % Plt Count 251 (160-400) X10*3/uL MPV 9.3 L (9.4-12.3) fL Immature Gran % (Auto) 0.5 H (0.0-0.4) % Neut % (Auto) 62.0 (45-73) % Lymph % (Auto) 27.9 (20-40) % [place] % (Auto) 8.1 (2-11) % Eos % (Auto) 0.9 (0-4) % Baso % (Auto) 0.6 (0-2) % Lymph # (Auto) 1.8 (1.2-4.9) X10*3/uL [place] # (Auto) 0.5 (0.1-1.2) X10*3/uL Eos # (Auto) 0.1 (0.0-0.4) X10*3/uL Baso # (Auto) 0.0 (0.0-0.2) X10*3/uL Abs Immat Gran (auto) 0.03 (0.00-0.03) X10*3/uL Absolute Neuts (auto) 4.1 (2.0-8.3) x10*3/uL Absolute Nucleated RBC 0.000 (0.0-0.012) X10*3/uL Nucleated RBC % (auto) 0.0 (0.0-0.2) /100WBC PT 13.3 H (10.0-13.1) SEC INR 1.2 H (0.9-1.1) Sodium (135-145) mmol/L Potassium (3.3-5.1) mmol/L Chloride (96-108) mmol/L Carbon Dioxide (22-29) mmol/L Anion Gap (12-20) BUN (9-16) mg/dL Creatinine (0.5-1.4) mg/dL Estim Creat Clear Calc Estimated GFR Random Glucose (60-115) mg/dL Calcium (8.4-10.2) mg/dL Magnesium (1.6-2.6) mg/dL Total Bilirubin (0.0-1.0) mg/dL AST (5-31) U/L ALT (0-31) U/L Alkaline Phosphatase (39-117) U/L Total Protein (6.5-8.0) g/dL Albumin (3.5-5.0) g/dL TSH (0.32-4.0) uIU/mL Urine Color Yellow Urine Appearance Turbid Urine pH 5.0 (5.0-9.0) Ur Specific [place] 1.020 (1.005-1.025) Urine Protein 30 (1+) H (Neg-Trace) mg/dL Urine Glucose (UA) 500 H (Negative) mg/dL Urine Ketones Negative (Negative) mg/dL Urine Blood Large (3+) H (Negative) Urine Nitrite Negative (Negative) Ur Leukocyte Esterase Large (3+) H (Negative) Urine RBC >20 H (0-2) /HPF Urine WBC >50 H (0-5) /HPF Ur Squamous Epith Cells 11-20 (0-2) /HPF Urine Bacteria 4+ (None Seen) Hyaline Casts 0-2 (0-2) /LPF 07/06/22 07/06/22 Range/Units 16:13 16:13 WBC (4.8-10.8) X10*3/uL RBC (4.20-5.50) X10*6/uL Hgb (12.0-16.0) g/dl Hct (37.0-47.0) % MCV (80.0-98.0) fL MCH (27.0-33.0) pg MCHC (31.0-35.0) g/dl RDW (11.0-16.0) % Plt Count (160-400) X10*3/uL MPV (9.4-12.3) fL Immature Gran % (Auto) (0.0-0.4) % Neut % (Auto) (45-73) % Lymph % (Auto) (20-40) % [place] % (Auto) (2-11) % Eos % (Auto) (0-4) % Baso % (Auto) (0-2) % Lymph # (Auto) (1.2-4.9) X10*3/uL [place] # (Auto) (0.1-1.2) X10*3/uL Eos # (Auto) (0.0-0.4) X10*3/uL Baso # (Auto) (0.0-0.2) X10*3/uL Abs Immat Gran (auto) (0.00-0.03) X10*3/uL Absolute Neuts (auto) (2.0-8.3) x10*3/uL Absolute Nucleated RBC (0.0-0.012) X10*3/uL Nucleated RBC % (auto) (0.0-0.2) /100WBC PT (10.0-13.1) SEC INR (0.9-1.1) Sodium 136 (135-145) mmol/L Potassium 4.2 (3.3-5.1) mmol/L Chloride 105 (96-108) mmol/L Carbon Dioxide 21 L (22-29) mmol/L Anion Gap 14 (12-20) BUN 19 H (9-16) mg/dL Creatinine 1.20 (0.5-1.4) mg/dL Estim Creat Clear Calc 28.9 Estimated GFR 42 Random Glucose 149 H (60-115) mg/dL Calcium 9.1 (8.4-10.2) mg/dL Magnesium 1.7 (1.6-2.6) mg/dL Total Bilirubin 0.8 (0.0-1.0) mg/dL AST 14 (5-31) U/L ALT 9 (0-31) U/L Alkaline Phosphatase 91 (39-117) U/L Total Protein 7.2 (6.5-8.0) g/dL Albumin 3.9 (3.5-5.0) g/dL TSH 1.56 (0.32-4.0) uIU/mL Urine Color Urine Appearance Urine pH (5.0-9.0) Ur Specific [place] (1.005-1.025) Urine Protein (Neg-Trace) mg/dL Urine Glucose (UA) (Negative) mg/dL Urine Ketones (Negative) mg/dL Urine Blood (Negative) Urine Nitrite (Negative) Ur Leukocyte Esterase (Negative) Urine RBC (0-2) /HPF Urine WBC (0-5) /HPF Ur Squamous Epith Cells (0-2) /HPF Urine Bacteria (None Seen) Hyaline Casts (0-2) /LPF <Koki Del Castillo, [facility]- - Last Filed: 07/10/22 20:59> Lab Results 07/06/22 07/06/22 07/06/22 Range/Units 14:57 16:13 16:13 WBC 6.5 (4.8-10.8) X10*3/uL RBC 4.36 (4.20-5.50) X10*6/uL Hgb 10.4 L (12.0-16.0) g/dl Hct 34.2 L (37.0-47.0) % MCV 78.4 L (80.0-98.0) fL MCH 23.9 L (27.0-33.0) pg MCHC 30.4 L (31.0-35.0) g/dl RDW 15.3 (11.0-16.0) % Plt Count 251 (160-400) X10*3/uL MPV 9.3 L (9.4-12.3) fL Immature Gran % (Auto) 0.5 H (0.0-0.4) % Neut % (Auto) 62.0 (45-73) % Lymph % (Auto) 27.9 (20-40) % [place] % (Auto) 8.1 (2-11) % Eos % (Auto) 0.9 (0-4) % Baso % (Auto) 0.6 (0-2) % Lymph # (Auto) 1.8 (1.2-4.9) X10*3/uL [place] # (Auto) 0.5 (0.1-1.2) X10*3/uL Eos # (Auto) 0.1 (0.0-0.4) X10*3/uL Baso # (Auto) 0.0 (0.0-0.2) X10*3/uL Abs Immat Gran (auto) 0.03 (0.00-0.03) X10*3/uL Absolute Neuts (auto) 4.1 (2.0-8.3) x10*3/uL Absolute Nucleated RBC 0.000 (0.0-0.012) X10*3/uL Nucleated RBC % (auto) 0.0 (0.0-0.2) /100WBC PT 13.3 H (10.0-13.1) SEC INR 1.2 H (0.9-1.1) Sodium (135-145) mmol/L Potassium (3.3-5.1) mmol/L Chloride (96-108) mmol/L Carbon Dioxide (22-29) mmol/L Anion Gap (12-20) BUN (9-16) mg/dL Creatinine (0.5-1.4) mg/dL Estim Creat Clear Calc Estimated GFR Random Glucose (60-115) mg/dL Calcium (8.4-10.2) mg/dL Magnesium (1.6-2.6) mg/dL Total Bilirubin (0.0-1.0) mg/dL AST (5-31) U/L ALT (0-31) U/L Alkaline Phosphatase (39-117) U/L Total Protein (6.5-8.0) g/dL Albumin (3.5-5.0) g/dL TSH (0.32-4.0) uIU/mL Urine Color Yellow Urine Appearance Turbid Urine pH 5.0 (5.0-9.0) Ur Specific [place] 1.020 (1.005-1.025) Urine Protein 30 (1+) H (Neg-Trace) mg/dL Urine Glucose (UA) 500 H (Negative) mg/dL Urine Ketones Negative (Negative) mg/dL Urine Blood Large (3+) H (Negative) Urine Nitrite Negative (Negative) Ur Leukocyte Esterase Large (3+) H (Negative) Urine RBC >20 H (0-2) /HPF Urine WBC >50 H (0-5) /HPF Ur Squamous Epith Cells 11-20 (0-2) /HPF Urine Bacteria 4+ (None Seen) Hyaline Casts 0-2 (0-2) /LPF 07/06/22 07/06/22 Range/Units 16:13 16:13 WBC (4.8-10.8) X10*3/uL RBC (4.20-5.50) X10*6/uL Hgb (12.0-16.0) g/dl Hct (37.0-47.0) % MCV (80.0-98.0) fL MCH (27.0-33.0) pg MCHC (31.0-35.0) g/dl RDW (11.0-16.0) % Plt Count (160-400) X10*3/uL MPV (9.4-12.3) fL Immature Gran % (Auto) (0.0-0.4) % Neut % (Auto) (45-73) % Lymph % (Auto) (20-40) % [place] % (Auto) (2-11) % Eos % (Auto) (0-4) % Baso % (Auto) (0-2) % Lymph # (Auto) (1.2-4.9) X10*3/uL [place] # (Auto) (0.1-1.2) X10*3/uL Eos # (Auto) (0.0-0.4) X10*3/uL Baso # (Auto) (0.0-0.2) X10*3/uL Abs Immat Gran (auto) (0.00-0.03) X10*3/uL Absolute Neuts (auto) (2.0-8.3) x10*3/uL Absolute Nucleated RBC (0.0-0.012) X10*3/uL Nucleated RBC % (auto) (0.0-0.2) /100WBC PT (10.0-13.1) SEC INR (0.9-1.1) Sodium 136 (135-145) mmol/L Potassium 4.2 (3.3-5.1) mmol/L Chloride 105 (96-108) mmol/L Carbon Dioxide 21 L (22-29) mmol/L Anion Gap 14 (12-20) BUN 19 H (9-16) mg/dL Creatinine 1.20 (0.5-1.4) mg/dL Estim Creat Clear Calc 28.9 Estimated GFR 42 Random Glucose 149 H (60-115) mg/dL Calcium 9.1 (8.4-10.2) mg/dL Magnesium 1.7 (1.6-2.6) mg/dL Total Bilirubin 0.8 (0.0-1.0) mg/dL AST 14 (5-31) U/L ALT 9 (0-31) U/L Alkaline Phosphatase 91 (39-117) U/L Total Protein 7.2 (6.5-8.0) g/dL Albumin 3.9 (3.5-5.0) g/dL TSH 1.56 (0.32-4.0) uIU/mL Urine Color Urine Appearance Urine pH (5.0-9.0) Ur Specific [place] (1.005-1.025) Urine Protein (Neg-Trace) mg/dL Urine Glucose (UA) (Negative) mg/dL Urine Ketones (Negative) mg/dL Urine Blood (Negative) Urine Nitrite (Negative) Ur Leukocyte Esterase (Negative) Urine RBC (0-2) /HPF Urine WBC (0-5) /HPF Ur Squamous Epith Cells (0-2) /HPF Urine Bacteria (None Seen) Hyaline Casts (0-2) /LPF <Brandy Connor MD - Last Filed: 07/06/22 20:57> Discharge Plan Discharge Clinical Impression: Constipation, Acute UTI <ONEIDA Casas - Last Filed: 07/10/22 20:59> Patient Disposition: Home, Self-Care <ONEIDA Casas - Last Filed: 07/10/22 20:59> Instructions: Constipation (ED), Urinary Tract Infection in Older Adults (ED) <ONEIDA Casas - Last Filed: 07/10/22 20:59> Additional Instructions: Please follow-up with your primary care physician tomorrow. If you have any worsening or new symptoms, please return to the emergency room or call 911 <ONEIDA Casas - Last Filed: 07/10/22 20:59> Prescriptions: New cefuroxime axetil 500 mg tablet 500 mg PO BID Qty: 14 0RF polyethylene glycol 3350 [Miralax] 17 gram/dose powder 17 g PO DAILY Qty: 238 0RF No Action metoprolol succinate 50 mg tablet extended release 24 hr 1 tab PO DAILY amlodipine 5 mg tablet 1 tab PO DAILY glipizide 2.5 mg tablet extended release 24hr 1 tab PO QAM simvastatin 20 mg tablet 1 tab PO BEDTIME lisinopril 10 mg tablet 1 tab PO DAILY furosemide 20 mg tablet 1 tab PO DAILY estradiol 0.01 % (0.1 mg/gram) cream 1 g topical 2XW Eliquis 5 mg Tablet 5 mg PO BID Qty: 120 4RF <ONEIDA Casas - Last Filed: 07/10/22 20:59> Interventions: ED Discharge Assessment Last Done: 07/06/22 21:06 <ONEIDA Casas - Last Filed: 07/10/22 20:59> Discharge Date/Time: 07/06/22 21:10 <ONEIDA Casas - Last Filed: 07/10/22 20:59>
[2022-07-06 15:54] LABS: Appearance Urine Turbid; Color Urine Yellow; Glucose Urine UA 500 mg/dL (Negative); Leukocyte Esterase Urine Large (3+) (Negative); Nitrite Urine Negative (Negative); UMIC TRIGGER UACC YES; Urine Blood Large (3+) (Negative); Urine Ketones Negative (Negative); Urine Protein 30 (1+) mg/dL (Neg-Trace)
[2022-07-06 16:16] LABS: MANUAL DIFF FLAG NO
[2022-07-06 16:16] LABS: Bacteria Urine 4+ (None Seen); Hyaline Casts Urine 0-2 /LPF (0-2); RBC Urine >20 /HPF (0-2); UACC Culture Trigger YES; WBC Urine >50 /HPF (0-5)
[2022-07-06 16:41] LABS: Alanine Aminotransferase 9 U/L (0-31); Albumin Level 3.9 g/dL (3.5-5.0); Alkaline Phosphatase 91 U/L (39-117); Anion Gap 14 (12-20); Aspartate Amino Transferase 14 U/L (5-31); Bilirubin Total 0.8 mg/dL (0.0-1.0); Blood Urea Nitrogen 19 mg/dL (9-16); Calcium 9.1 mg/dL (8.4-10.2); Carbon Dioxide 21 mmol/L (22-29); Chloride 105 mmol/L (96-108); Creatinine Clr Calc Pharmacy 28.9; Estimated Glomerular Filt Rate 42; Glucose Random 149 mg/dL (60-115); Magnesium 1.7 mg/dL (1.6-2.6); Potassium 4.2 mmol/L (3.3-5.1); Sodium 136 mmol/L (135-145); Total Protein 7.2 g/dL (6.5-8.0)
[2022-07-06 16:42] LABS: Basophils Percent Auto 0.6 % (0-2); Eosinophils Absolute Auto 0.1 X10*3/uL (0.0-0.4); Eosinophils Percent Auto 0.9 % (0-4); Hematocrit 34.2 % (37.0-47.0); Hemoglobin 10.4 g/dl (12.0-16.0); Imm Gran Abs Auto 0.03 X10*3/uL (0.00-0.03); Imm Gran Pct Auto 0.5 % (0.0-0.4); Lymphocytes Absolute Auto 1.8 X10*3/uL (1.2-4.9); Lymphocytes Percent Auto 27.9 % (20-40); Mean Corpuscular HGB Conc 30.4 g/dl (31.0-35.0); Mean Corpuscular Hemoglobin 23.9 pg (27.0-33.0); Mean Corpuscular Volume 78.4 fL (80.0-98.0); Mean Platelet Volume 9.3 fL (9.4-12.3); Monocytes Absolute Auto 0.5 X10*3/uL (0.1-1.2); Monocytes Percent Auto 8.1 % (2-11); Neutrophils Absolute Auto 4.1 x10*3/uL (2.0-8.3); Platelet Count 251 X10*3/uL (160-400); Red Blood Count 4.36 X10*6/uL (4.20-5.50); Red Cell Distribution Width 15.3 % (11.0-16.0); White Blood Count 6.5 X10*3/uL (4.8-10.8)
--- NOTE | 2022-07-06 16:42 | ED.GENADULT ---
HPI - General Adult General Chief complaint: Urogenital-Female Stated complaint: unable to urinate Time Seen by Provider: 07/06/22 16:32 Source: patient Mode of arrival: ambulatory Limitations: no limitations History of Present Illness HPI narrative: Patient comes to the emergency room complaining of 4 days of constipation. Patient states that usually she is able to have normal bowel movements. Now, she feels distended. Patient states she has no abdominal pain, denies nausea vomiting or diarrhea. Patient states that she was able to pass a very small amount of urine, patient thinks that the stool in her colon is obstructing the urinary tract. Patient denies dysuria or hematuria. Patient denies URI symptoms. Related Data Home Medications Medication Instructions Recorded Confirmed amlodipine 5 mg tablet 1 tab PO DAILY 05/20/20 06/13/22 estradiol 0.01% (0.1 mg/gram) 1 g topical 2XW 05/20/20 06/13/22 vaginal cream furosemide 20 mg tablet 1 tab PO DAILY 05/20/20 06/13/22 glipizide 2.5 mg tablet, extended 1 tab PO QAM 05/20/20 06/13/22 release 24 hr lisinopril 10 mg tablet 1 tab PO DAILY 05/20/20 06/13/22 metoprolol succinate 50 mg 1 tab PO DAILY 05/20/20 06/13/22 tablet,extended release 24 hr simvastatin 20 mg tablet 1 tab PO BEDTIME 05/20/20 06/13/22 Previous Rx's Medication Instructions Recorded apixaban 5 mg tablet (Eliquis) 5 mg PO BID #120 tabs 10/05/21 cefuroxime axetil 500 mg tablet 500 mg PO BID #14 tabs 07/06/22 polyethylene glycol 3350 17 17 g PO DAILY #238 grams 07/06/22 gram/dose oral powder (Miralax) Allergies Allergy/AdvReac Type Severity Reaction Status Date / Time No Known Allergies Allergy Verified 07/06/22 13:14 [No Known Allergies*] Review of Systems Review of Systems: Constitutional : No Weight loss, No Fever, No Chills, No Night Sweats, No Fatigue, No Malaise ENT/Mouth : No Hearing loss, No Ear Pain, No Nasal Congestion, No Sinus Pain, No Hoarseness, No sore throat, No Rhinorrhea, No Swallowing Difficulty Eyes: No Eye Pain, No Swelling, No Redness, No Foreign Body, No Discharge, No Vision Changes Cardiovascular : No Chest Pain, No SOB, No Dyspnea on Exertion, No Orthopnea, No Edema, No Palpitations Respiratory : No Cough, No Sputum, No Wheezing, No Smoke Exposure, No Dyspnea Gastrointestinal : No Nausea, No Vomiting, No Diarrhea, complaining of Constipation, No abdominal Pain, No Hematochezia, No Melena Genitourinary : no irregular bleeding, No Dysuria, No Urinary Frequency, No Hematuria, No Urinary Incontinence, No Urgency, No Flank Pain, No Urinary Flow Changes, No Hesitancy Musculoskeletal : No joint pain, No Myalgias, No Joint Swelling Skin : No Skin Lesions, No rash Neuro : No Weakness, No Numbness, No Paresthesias, No Loss of Consciousness, No Dizziness, No Headache Psych : No Anxiety/Panic, No Depression, No SI/HI/AH/VH, No Social Issues, Heme/Lymph: No Bruising, No Bleeding,No Lymphadenopathy Endocrine : No Polyuria, No Polydipsia, No Temperature Intolerance [facility] Past Medical History Medical History Acute respiratory distress Arthritis HTN (hypertension) Hypoxemia Pulmonary embolism Type 2 diabetes mellitus Unsteady gait Family History Family History (Updated 06/13/22 @ 14:16 by Yara Valerio CMA) Family/Other Diabetes Other No family history of cancer Social History Social History (Updated 06/13/22 @ 14:16 by Yara Valerio CMA) Household Members: Spouse Housing: House Are you a primary transition of care specialist to a significant other at home: No Do you presently have visiting nurse or other home services: No Alcohol intake: never Patient Tobacco Use Status: Never used Tobacco Smoked in Last 30 Days: No Use of substances other than those prescribed or required for medical reasons: No Advance Directives: No service: No Current occupational status: retired Physical Exam ED Vital Signs: Vital Signs - 24 hr 07/06/22 13:10 07/06/22 16:48 07/06/22 19:40 Temperature 97.0 F 98.1 F Pulse Rate 85 86 78 Respiratory Rate 18 202 H 20 Blood Pressure 147/55 H 147/82 H 178/95 H Pulse Oximetry 99 100 100 Oxygen Delivery Method Room Air Room Air Room Air BMI result Body Mass Index 25.6 Const Other: Appearance: Alert. Oriented X3. No acute distress. Eyes: Pupils equal, round and reactive to light. ENT: Pharynx normal. Neck: Normal inspection. Neck supple. No lymph nodes noted. No crepitus CVS: Normal heart rate and rhythm. Pulses normal. Normal S1 and S2 Respiratory: No respiratory distress. Breath sounds normal. No Wheezing. No rales Abdomen: Soft and nontender. No rigidity. No distention. Skin: Skin warm and dry. Normal skin color. Normal skin turgor. Extremities: No lower extremity edema. No Lacerations. No Rash Neuro: Oriented X 3. No motor deficit. No sensory deficit. Moving all extremities. No slurred speech. CN 2 through 12 grossly intact Psych: calm, cooperative, normal affect Course Course Course Narrative: RME:? 86-year-old female is here today for constipation.? Patient states that she has not had a bowel movement for 4 days.? Patient also reports that she was unable to urinate all night and just had small amount of urine this morning.? Patient denies any abdominal pain or discomfort.? No nausea or vomiting.? Patient states that usually she goes to the bathroom normal.? Occasionally she uses milk of magnesia at and mineral oil and has no trouble going to the bathroom.? Patient denies melena, hematochezia, unintentional weight loss or ribbon like stools.? Patient is on Eliquis for history of PE will order urine Patient's labs are pending. Patient also had a KUB and CT scan of abdomen/pelvis, also pending. Urinalysis is positive for UTI. Patient states that she has no symptoms. Patient's vitals within normal limits. Sepsis is not suspected. Medications Administered Discontinued Medications Generic Name Dose Route Start Last Admin Trade Name Freq PRN Reason Stop Dose Admin Ceftriaxone Sodium 1 gm/ 0 gm 07/06/22 17:25 07/06/22 17:51 Lidocaine HCl 2.1 ml IM 07/06/22 17:26 1 kit ONCE ONE Administration Docusate Sodium 100 mg 07/06/22 13:19 07/06/22 16:51 Docusate Sodium 100 Mg Capsule PO 07/06/22 13:20 100 mg ONCE ONE Administration Senna 8.6 mg 07/06/22 13:19 07/06/22 16:51 Sennosides 8.6 Mg Tablet PO 07/06/22 13:20 8.6 mg ONCE ONE Administration Medical Decision Making Medical Decision Making MDM Narrative: KUB and CT scan of the abdomen are unremarkable. Patient was given an enema, patient had a successful bowel movement, patient ready for discharge. Differential Diagnosis Differential Diagnoses: The differential diagnosis associated with the presentation includes (Small-bowel obstruction, constipation) Lab Data [facility] Lab Attestation statement: I reviewed the patient's lab results. 07/06/22 16:13 07/06/22 16:13 Labs: Lab Results 07/06/22 07/06/22 07/06/22 Range/Units 14:57 16:13 16:13 WBC 6.5 (4.8-10.8) X10*3/uL RBC 4.36 (4.20-5.50) X10*6/uL Hgb 10.4 L (12.0-16.0) g/dl Hct 34.2 L (37.0-47.0) % MCV 78.4 L (80.0-98.0) fL MCH 23.9 L (27.0-33.0) pg MCHC 30.4 L (31.0-35.0) g/dl RDW 15.3 (11.0-16.0) % Plt Count 251 (160-400) X10*3/uL MPV 9.3 L (9.4-12.3) fL Immature Gran % (Auto) 0.5 H (0.0-0.4) % Neut % (Auto) 62.0 (45-73) % Lymph % (Auto) 27.9 (20-40) % [place] % (Auto) 8.1 (2-11) % Eos % (Auto) 0.9 (0-4) % Baso % (Auto) 0.6 (0-2) % Lymph # (Auto) 1.8 (1.2-4.9) X10*3/uL [place] # (Auto) 0.5 (0.1-1.2) X10*3/uL Eos # (Auto) 0.1 (0.0-0.4) X10*3/uL Baso # (Auto) 0.0 (0.0-0.2) X10*3/uL Abs Immat Gran (auto) 0.03 (0.00-0.03) X10*3/uL Absolute Neuts (auto) 4.1 (2.0-8.3) x10*3/uL Absolute Nucleated RBC 0.000 (0.0-0.012) X10*3/uL Nucleated RBC % (auto) 0.0 (0.0-0.2) /100WBC PT 13.3 H (10.0-13.1) SEC INR 1.2 H (0.9-1.1) Sodium (135-145) mmol/L Potassium (3.3-5.1) mmol/L Chloride (96-108) mmol/L Carbon Dioxide (22-29) mmol/L Anion Gap (12-20) BUN (9-16) mg/dL Creatinine (0.5-1.4) mg/dL Estim Creat Clear Calc Estimated GFR Random Glucose (60-115) mg/dL Calcium (8.4-10.2) mg/dL Magnesium (1.6-2.6) mg/dL Total Bilirubin (0.0-1.0) mg/dL AST (5-31) U/L ALT (0-31) U/L Alkaline Phosphatase (39-117) U/L Total Protein (6.5-8.0) g/dL Albumin (3.5-5.0) g/dL TSH (0.32-4.0) uIU/mL Urine Color Yellow Urine Appearance Turbid Urine pH 5.0 (5.0-9.0) Ur Specific [place] 1.020 (1.005-1.025) Urine Protein 30 (1+) H (Neg-Trace) mg/dL Urine Glucose (UA) 500 H (Negative) mg/dL Urine Ketones Negative (Negative) mg/dL Urine Blood Large (3+) H (Negative) Urine Nitrite Negative (Negative) Ur Leukocyte Esterase Large (3+) H (Negative) Urine RBC >20 H (0-2) /HPF Urine WBC >50 H (0-5) /HPF Ur Squamous Epith Cells 11-20 (0-2) /HPF Urine Bacteria 4+ (None Seen) Hyaline Casts 0-2 (0-2) /LPF 07/06/22 07/06/22 Range/Units 16:13 16:13 WBC (4.8-10.8) X10*3/uL RBC (4.20-5.50) X10*6/uL Hgb (12.0-16.0) g/dl Hct (37.0-47.0) % MCV (80.0-98.0) fL MCH (27.0-33.0) pg MCHC (31.0-35.0) g/dl RDW (11.0-16.0) % Plt Count (160-400) X10*3/uL MPV (9.4-12.3) fL Immature Gran % (Auto) (0.0-0.4) % Neut % (Auto) (45-73) % Lymph % (Auto) (20-40) % [place] % (Auto) (2-11) % Eos % (Auto) (0-4) % Baso % (Auto) (0-2) % Lymph # (Auto) (1.2-4.9) X10*3/uL [place] # (Auto) (0.1-1.2) X10*3/uL Eos # (Auto) (0.0-0.4) X10*3/uL Baso # (Auto) (0.0-0.2) X10*3/uL Abs Immat Gran (auto) (0.00-0.03) X10*3/uL Absolute Neuts (auto) (2.0-8.3) x10*3/uL Absolute Nucleated RBC (0.0-0.012) X10*3/uL Nucleated RBC % (auto) (0.0-0.2) /100WBC PT (10.0-13.1) SEC INR (0.9-1.1) Sodium 136 (135-145) mmol/L Potassium 4.2 (3.3-5.1) mmol/L Chloride 105 (96-108) mmol/L Carbon Dioxide 21 L (22-29) mmol/L Anion Gap 14 (12-20) BUN 19 H (9-16) mg/dL Creatinine 1.20 (0.5-1.4) mg/dL Estim Creat Clear Calc 28.9 Estimated GFR 42 Random Glucose 149 H (60-115) mg/dL Calcium 9.1 (8.4-10.2) mg/dL Magnesium 1.7 (1.6-2.6) mg/dL Total Bilirubin 0.8 (0.0-1.0) mg/dL AST 14 (5-31) U/L ALT 9 (0-31) U/L Alkaline Phosphatase 91 (39-117) U/L Total Protein 7.2 (6.5-8.0) g/dL Albumin 3.9 (3.5-5.0) g/dL TSH 1.56 (0.32-4.0) uIU/mL Urine Color Urine Appearance Urine pH (5.0-9.0) Ur Specific [place] (1.005-1.025) Urine Protein (Neg-Trace) mg/dL Urine Glucose (UA) (Negative) mg/dL Urine Ketones (Negative) mg/dL Urine Blood (Negative) Urine Nitrite (Negative) Ur Leukocyte Esterase (Negative) Urine RBC (0-2) /HPF Urine WBC (0-5) /HPF Ur Squamous Epith Cells (0-2) /HPF Urine Bacteria (None Seen) Hyaline Casts (0-2) /LPF Independent Interpretation I performed an independent interpretation of an: CT Scan Interpretation: My KUB interpretation: No air-fluid levels, unlikely a small-bowel obstruction CT scan: Bladder is large, no obstruction Radiology Impression Discussion of test interpretation with radiology: I have reviewed the radiologist's reading. Radiologist Impression: CT/CT abdomen pelvis wo IV con IMPRESSION: 1.? There is mild descent of the bladder which is at the inferior aspect of the pubic symphysis on these nonstress views which I suspect with Valsalva and attempts to void significantly worsens. There is thickening of the bladder wall at its base measuring almost a centimeter in thickness. Malignancy cannot be entirely excluded but this may be secondary to chronic inflammation. There is also mild prolapse of the vagina, cervix and uterus present as well. All of this is probably related to the patient's voiding issues and urologic consultation is recommended with possible cystoscopy or pelvic MR. 2.? Incidental note made of a small hiatal hernia, calcified left buttock mass, severe degenerative changes in the spine and other findings described above. ? Fleischner guidelines were followed. FINDINGS: There is scoliosis of the lumbar spine convex left with multilevel degenerative disc disease and spurring. Psoas margins are intact. Patient status post previous right lower quadrant surgery with clips in place. There is some calcification seen adjacent to the right L2 and L3 vertebral bodies which on previous CT scan are seen to represent densities related to the pancreas. There is a moderate stool burden present without dilated loops of large or small bowel. Soft tissue calcification is seen adjacent to the left iliac crest. There is a calcified fibroid seen within the pelvis. XR/XR KUB IMPRESSION: Moderate colonic stool burden. ? Degenerative change of the lumbar spine. Discharge Plan Discharge Clinical Impression: Constipation, Acute UTI Patient Disposition: Home, Self-Care Instructions: Constipation (ED), Urinary Tract Infection in Older Adults (ED) Additional Instructions: Please follow-up with your primary care physician tomorrow. If you have any worsening or new symptoms, please return to the emergency room or call 911 Prescriptions: New cefuroxime axetil 500 mg tablet 500 mg PO BID Qty: 14 0RF polyethylene glycol 3350 [Miralax] 17 gram/dose powder 17 g PO DAILY Qty: 238 0RF No Action metoprolol succinate 50 mg tablet extended release 24 hr 1 tab PO DAILY amlodipine 5 mg tablet 1 tab PO DAILY glipizide 2.5 mg tablet extended release 24hr 1 tab PO QAM simvastatin 20 mg tablet 1 tab PO BEDTIME lisinopril 10 mg tablet 1 tab PO DAILY furosemide 20 mg tablet 1 tab PO DAILY estradiol 0.01 % (0.1 mg/gram) cream 1 g topical 2XW Eliquis 5 mg Tablet 5 mg PO BID Qty: 120 4RF
[2022-07-06 16:43] LABS: INTERNATIONAL NORM RATIO 1.2 (0.9-1.1); Prothrombin Time 13.3 SEC (10.0-13.1)
[2022-07-06 16:48] VITALS: BP 147/82; PULSE 86; RESP 202; TEMP 36.7; O2SAT 100
[2022-07-06] MEDS: Docusate Sodium 100 MG CAPSULE PO (16:51)
[2022-07-06] MEDS: Sennosides 8.6 MG TABLET PO (16:51)
[2022-07-06 17:00] LABS: TSH reflex Free T4 1.56 uIU/mL (0.32-4.0)
[2022-07-06] MEDS: cefTRIAXone sodium 1 GM, Lidocaine HCl 1 % MPF 2.1 ML IM (17:51)
[2022-07-06 19:40] VITALS: BP 178/95; PULSE 78; RESP 20; O2SAT 100
--- NOTE | 2022-07-06 20:16 | PC.NURSE ---
This RN administered soap suds enema. Pt tolerated procedure well. Shortly afterwards pt had significant BM. Provider made aware. Plan to discharge home.
== END 2022-07-06 21:10 | disposition home or self-care (01) ==
PROVIDERS: Nurse Practitioner Family; Physician Assistant Medical; Emergency Provider Emergency Medicine; PCP Internal Medicine
DX: N39.0 Urinary tract infection, site not specified (principal); R33.9 Retention of urine, unspecified; K59.00 Constipation, unspecified; R10.9 Unspecified abdominal pain; Z79.899 Other long term (current) drug therapy
CPT/HCPCS: 36415; 74018; 74176; 80053; 81001; 81003; 83735; 84443; 85025; 85610; 87086; 87088; 87186; 96372; 99284; J0696

== ENCOUNTER 2022-09-05 16:33 | Outpatient (REF) | payer MEDICARE, SELFPAY ==
[2022-09-05 17:28] LABS: Estimated Average Glucose 258 mg/dL; Hemoglobin A1c % 10.6 %
[2022-09-05 19:40] LABS: Alanine Aminotransferase 11 U/L (0-31); Albumin Level 3.8 g/dL (3.5-5.0); Alkaline Phosphatase 130 U/L (39-117); Anion Gap 13 (12-20); Aspartate Amino Transferase 14 U/L (5-31); Bilirubin Total 0.6 mg/dL (0.0-1.0); Blood Urea Nitrogen 23 mg/dL (9-16); Calcium 9.2 mg/dL (8.4-10.2); Carbon Dioxide 23 mmol/L (22-29); Chloride 104 mmol/L (96-108); Cholesterol 153 mg/dL; Estimated Glomerular Filt Rate 33; Glucose Random 445 mg/dL (60-115); HDL Cholesterol 64 mg/dL; LDL Cholesterol Calculated 69 mg/dl; Potassium 5.3 mmol/L (3.3-5.1); Sodium 135 mmol/L (135-145); Total Protein 6.9 g/dL (6.5-8.0); Triglycerides 104 mg/dL
[2022-09-05 19:46] LABS: Ferritin 26 ng/mL (10-250); Folate 12.7 ng/mL (> or = 4.0); Thyroid Stimulating Hormone 1.07 uIU/mL (0.32-4.0); Vitamin B12 1541 pg/mL (200-900)
[2022-09-07 23:19] LABS: Prot Elec - Albumin 3.7 g/dL (3.8-4.8); Prot Elec - Alpha1 0.4 g/dL (0.2-0.3); Prot Elec - Alpha2 0.9 g/dL (0.5-0.9); Prot Elec - Beta 1 0.5 g/dL (0.4-0.6); Prot Elec - Beta 2 0.4 g/dL (0.2-0.5); Prot Elec - Gamma 1.3 g/dL (0.8-1.7); Prot Elec - Total Protein 7.1 g/dL (6.1-8.1)
== END 2022-09-05 16:34 | disposition home or self-care (01) ==
LOC: HO.LAB 16:33
PROVIDERS: PCP Internal Medicine; Visit Provider Internal Medicine
DX: E11.65 Type 2 diabetes mellitus with hyperglycemia (principal); I12.9 Hypertensive chronic kidney disease with stage 1 through stage 4 chronic kidney disease, or unspecified chronic kidney disease; E11.22 Type 2 diabetes mellitus with diabetic chronic kidney disease; N18.9 Chronic kidney disease, unspecified; D63.1 Anemia in chronic kidney disease
CPT/HCPCS: 36415; 80053; 80061; 82607; 82728; 82746; 83036; 84165; 84443

== ENCOUNTER 2022-09-06 11:12 | Outpatient (REF) | payer MEDICARE, SELFPAY ==
[2022-09-06 12:22] LABS: Creatinine Urine 45.54 mg/dL; Microalbum/Creatinine Ratio Ur 193.2 ug/mg cr
== END 2022-09-06 11:13 | disposition home or self-care (01) ==
LOC: HO.LNP 11:12
PROVIDERS: Visit Provider Internal Medicine
DX: E11.65 Type 2 diabetes mellitus with hyperglycemia (principal); I12.9 Hypertensive chronic kidney disease with stage 1 through stage 4 chronic kidney disease, or unspecified chronic kidney disease; E11.22 Type 2 diabetes mellitus with diabetic chronic kidney disease; N18.9 Chronic kidney disease, unspecified; D63.1 Anemia in chronic kidney disease
CPT/HCPCS: 82043

== ENCOUNTER 2022-09-14 12:41 | Emergency (ER) | payer MEDICARE, SELFPAY ==
--- NOTE | ~2022-09-14 | CT_ITS ---
EXAMINATION: CT ABDOMEN AND PELVIS WITHOUT CONTRAST CLINICAL INFORMATION: Constipation, urinary retention and abdominal pain COMPARISON: 07/06/2022. TECHNIQUE: Multidetector volumetric imaging was performed from the superior aspect of the liver through the pubic symphysis. Sagittal and coronal reformatted images were obtained on the technologist's workstation. This CT examination was performed using dose optimization techniques as appropriate, variously including the following: *Automated exposure control *Adjustment of mA and/or kV according to patient size (this includes techniques or standardized protocols for targeted exams where dose is matched to indication/reason for exam; i.e. extremities or head) *Use of iterative reconstruction technique DLP: 519 mGy-cm FINDINGS: LUNG BASES: The visualized lung bases are unremarkable. LIVER, GALLBLADDER, AND BILIARY TREE: The liver is normal in size, shape, and attenuation. No focal hepatic lesion or biliary ductal dilatation is present. The gallbladder is unremarkable with no evidence of radiopaque gallstones, gallbladder wall thickening, or obvious pericholecystic inflammatory changes. PANCREAS: Unremarkable. SPLEEN: Unremarkable. ADRENAL GLANDS: Unremarkable. KIDNEYS AND URETERS: No new hydronephrosis. Previously noted renal cysts and hyperdense cysts not appreciably changed. Small nephrolith in the lower pole of the left kidney not significantly changed. BLADDER: Thickening of the inferior right side of the urinary bladder not appearing significantly changed. Direct visualization recommended if not already performed. GASTROINTESTINAL TRACT: No evidence for diverticulitis. Large colonic fecal material. No small bowel obstructive process or abnormal omental thickening. Hiatal hernia. ABDOMINAL WALL: Oval lobular partially calcific subcutaneous mass of the left buttock not appearing significantly changed. No significant hernia seen. LYMPH NODES: No new suspicious mesenteric or retroperitoneal lymphadenopathy. VASCULAR: Atherosclerotic changes. PELVIC VISCERA: Uterus does not appear significantly changed. Exophytic right-sided calcific fibroid. OSSEOUS STRUCTURES: Spondylosis, degenerative disc space narrowing, and facet arthrosis do not appear appreciably changed. Old healed fracture of the right inferior pubic ramus. CT/CT abdomen pelvis wo IV con IMPRESSION: No CT evidence for acute inflammatory or obstructive process. Large colonic fecal material. Thickening of the inferior right side of the urinary bladder overall not appearing appreciably changed. Direct visualization recommended if not already performed. Other incidental findings as noted above. Fleischner guidelines were followed.
--- NOTE | 2022-09-14 12:44 | ED_ITS ---
HPI - Abdominal Pain General Chief Complaint: Abdominal Pain <WILTON Oneal - Last Filed: 09/14/22 12:48> Stated Complaint: Abdominal Pain <WILTON Oneal - Last Filed: 09/14/22 12:48> Time Seen by Provider: 09/14/22 15:37 <WILTON Oneal - Last Filed: 09/14/22 12:48> Source: patient and family <Brandy Connor MD - Last Filed: 09/14/22 20:10> Mode of arrival: ambulatory <Brandy Connor MD - Last Filed: 09/14/22 20:10> Limitations: no limitations <Brandy Connor MD - Last Filed: 09/14/22 20:10> History of Present Illness HPI narrative: Patient comes to the emergency room accompanied by her daughter. Patient has been complaining of diffuse abdominal discomfort. Patient states that she has not had a bowel movement in 5 days. Also, patient had a UTI recently and 5 days ago finished a course of Bactrim. Patient denies fever or chills, no flank pain patient complaining of dysuria. No hematuria. <Brandy Connor MD - Last Filed: 09/14/22 20:10> Related Data Home Medications: Home Medications Medication Instructions Recorded Confirmed amlodipine 5 mg tablet 1 tab PO DAILY 05/20/20 06/13/22 estradiol 0.01% (0.1 mg/gram) 1 g topical 2XW 05/20/20 06/13/22 vaginal cream furosemide 20 mg tablet 1 tab PO DAILY 05/20/20 06/13/22 glipizide 2.5 mg tablet, extended 1 tab PO QAM 05/20/20 06/13/22 release 24 hr lisinopril 10 mg tablet 1 tab PO DAILY 05/20/20 06/13/22 metoprolol succinate 50 mg 1 tab PO DAILY 05/20/20 06/13/22 tablet,extended release 24 hr simvastatin 20 mg tablet 1 tab PO BEDTIME 05/20/20 06/13/22 Previous Rx's Medication Instructions Recorded cefuroxime axetil 500 mg tablet 500 mg PO BID #14 tabs 07/06/22 polyethylene glycol 3350 17 17 g PO DAILY #238 grams 07/06/22 gram/dose oral powder (Miralax) apixaban 5 mg tablet (Eliquis) 5 mg PO BID #120 tabs 08/21/22 cefuroxime axetil 500 mg tablet 500 mg PO BID #14 tabs 09/14/22 lactulose 10 gram/15 mL (15 mL) 20 g (30 mL) PO BID 2 days #120 mL 09/14/22 oral solution <WILTON Oneal - Last Filed: 09/14/22 12:48> Allergies/Adverse Reactions: Allergies Allergy/AdvReac Type Severity Reaction Status Date / Time No Known Allergies Allergy Verified 07/06/22 13:14 [No Known Allergies*] <WILTON Oneal - Last Filed: 09/14/22 12:48> Review of Systems Review of Systems Constitutional : No Weight loss, No Fever, No Chills, No Night Sweats, No Fatigue, No Malaise ENT/Mouth : No Hearing loss, No Ear Pain, No Nasal Congestion, No Sinus Pain, No Hoarseness, No sore throat, No Rhinorrhea, No Swallowing Difficulty Eyes: No Eye Pain, No Swelling, No Redness, No Foreign Body, No Discharge, No Vision Changes Cardiovascular : No Chest Pain, No SOB, No Dyspnea on Exertion, No Orthopnea, No Edema, No Palpitations Respiratory : No Cough, No Sputum, No Wheezing, No Smoke Exposure, No Dyspnea Gastrointestinal : No Nausea, No Vomiting, No Diarrhea, complaining of Constipation, No abdominal Pain, No Hematochezia, No Melena Genitourinary : no irregular bleeding, complaining of Dysuria, No Urinary Frequency, No Hematuria, No Urinary Incontinence, No Urgency, No Flank Pain, No Urinary Flow Changes, No Hesitancy Musculoskeletal : No joint pain, No Myalgias, No Joint Swelling Skin : No Skin Lesions, No rash Neuro : No Weakness, No Numbness, No Paresthesias, No Loss of Consciousness, No Dizziness, No Headache Psych : No Anxiety/Panic, No Depression, No SI/HI/AH/VH, No Social Issues, Heme/Lymph: No Bruising, No Bleeding,No Lymphadenopathy Endocrine : No Polyuria, No Polydipsia, No Temperature Intolerance <Brandy harkins MD - Last Filed: 09/14/22 20:10> [facility] Past Medical History Medical History: Medical History Acute respiratory distress Arthritis HTN (hypertension) Hypoxemia Pulmonary embolism Type 2 diabetes mellitus Unsteady gait <WILTON Oneal - Last Filed: 09/14/22 12:48> Family History Family History: Family History (Updated 06/13/22 @ 14:16 by Yara Valerio CMA) Family/Other Diabetes Other No family history of cancer <WILTON Oneal - Last Filed: 09/14/22 12:48> Social History Social History: Social History (Updated 06/13/22 @ 14:16 by Yara Valerio [facility]) Household Members: Spouse Housing: House Are you a primary day care aide to a significant other at home: No Do you presently have visiting nurse or other home services: No Alcohol intake: never Patient Tobacco Use Status: Never used Tobacco Advance Directives: No Advance Directives Information Provided: Yes service: No Current occupational status: retired <WILTON Oneal - Last Filed: 09/14/22 12:48> Physical Exam ED Vital Signs: Vital Signs - 24 hr 09/14/22 12:45 09/14/22 14:59 Temperature 96.6 F L 98.1 F Pulse Rate 102 H 78 Respiratory Rate 16 14 Blood Pressure 150/79 H 157/76 H Pulse Oximetry 98 100 Oxygen Delivery Method Room Air Room Air BMI result Body Mass Index 26.4 <WILTON Oneal - Last Filed: 09/14/22 12:48> Vital Signs - 24 hr 09/14/22 12:45 09/14/22 14:59 Temperature 96.6 F L 98.1 F Pulse Rate 102 H 78 Respiratory Rate 16 14 Blood Pressure 150/79 H 157/76 H Pulse Oximetry 98 100 Oxygen Delivery Method Room Air Room Air BMI result Body Mass Index 26.4 <Brandy Connor MD - Last Filed: 09/14/22 20:10> Const Other: Appearance: Alert. Oriented X3. No acute distress. Well-appearing Eyes: Pupils equal, round and reactive to light. ENT: Pharynx normal. Neck: Normal inspection. Neck supple. No lymph nodes noted. No crepitus CVS: Normal heart rate and rhythm. Pulses normal. Normal S1 and S2 Respiratory: No respiratory distress. Breath sounds normal. No Wheezing. No rales Abdomen: Soft and nontender. No rigidity. No distention. Skin: Skin warm and dry. Normal skin color. Normal skin turgor. Extremities: No lower extremity edema. No Lacerations. No Rash Neuro: Oriented X 3. No motor deficit. No sensory deficit. Moving all extr emities. No slurred speech. CN 2 through 12 grossly intact Psych: calm, cooperative, normal affect <Brandy Connor MD - Last Filed: 09/14/22 20:10> Course Course Course Narrative: RME--86yo F w/PMHx HTN, PE on Eliquis, DM, c/o diffuse abdominal pain, constipation w/o BM x5 days, and difficulty urinating (last urinated last night). Is passing flatus. Admits to recent UTI on Bactrim (finished last week) Abd soft and nontender Labs, UA, bladder scan, CT AP ordered <WILTON Oneal - Last Filed: 09/14/22 12:48> Medical Decision Making Medical Decision Making [facility] Narrative: Discussed the labs and imaging with the patient and her daughter. Patient with blood cell count within normal limits, no fever, good blood pressure. Sepsis not suspected -patient does have a UTI. Patient given 1 dose of IM ceftriaxone emergency room, patient will continue cefuroxime at home -patient was given 1 suds enema prep in the ED. -patient declined the suds enema. Patient states that she would like to be discharged home. Patient received IM ceftriaxone. <Brandy Connor MD - Last Filed: 09/14/22 20:10> Differential Diagnosis Differential Diagnoses: The differential diagnosis associated with the presentation includes (Constipation, UTI, SBO) <Brandy Connor MD - Last Filed: 09/14/22 20:10> Lab Data [facility] Lab Attestation statement: I reviewed the patient's lab results. <Brandy Connor MD - Last Filed: 09/14/22 20:10> Result Diagrams: 09/14/22 12:56 09/14/22 12:56 <WILTON Oneal - Last Filed: 09/14/22 12:48> Labs: Lab Results 09/14/22 09/14/22 09/14/22 Range/Units 12:56 12:56 12:56 WBC 7.5 (4.8-10.8) X10*3/uL RBC 4.57 (4.20-5.50) X10*6/uL Hgb 10.4 L (12.0-16.0) g/dl Hct 35.0 L (37.0-47.0) % MCV 76.6 L (80.0-98.0) fL MCH 22.8 L (27.0-33.0) pg MCHC 29.7 L (31.0-35.0) g/dl RDW 18.5 H (11.0-16.0) % Plt Count 236 (160-400) X10*3/uL MPV 9.2 L (9.4-12.3) fL Immature Gran % (Auto) 0.3 (0.0-0.4) % Neut % (Auto) 73.5 H (45-73) % Lymph % (Auto) 18.7 L (20-40) % Overton % (Auto) 6.8 (2-11) % Eos % (Auto) 0.4 (0-4) % Baso % (Auto) 0.3 (0-2) % Lymph # (Auto) 1.4 (1.2-4.9) X10*3/uL Overton # (Auto) 0.5 (0.1-1.2) X10*3/uL Eos # (Auto) 0.0 (0.0-0.4) X10*3/uL Baso # (Auto) 0.0 (0.0-0.2) X10*3/uL Abs Immat Gran (auto) 0.02 (0.00-0.03) X10*3/uL Absolute Neuts (auto) 5.5 (2.0-8.3) x10*3/uL Absolute Nucleated RBC 0.000 (0.0-0.012) X10*3/uL Nucleated RBC % (auto) 0.0 (0.0-0.2) /100WBC Sodium 139 (135-145) mmol/L Potassium 4.5 (3.3-5.1) mmol/L Chloride 109 H (96-108) mmol/L Carbon Dioxide 23 (22-29) mmol/L Anion Gap 12 (12-20) BUN 30 H (9-16) mg/dL Creatinine 0.95 (0.5-1.4) mg/dL Estim Creat Clear Calc 35.6 Estimated GFR 56 Random Glucose 99 (60-115) mg/dL Calcium 8.9 (8.4-10.2) mg/dL Magnesium 1.8 (1.6-2.6) mg/dL Total Bilirubin 0.8 (0.0-1.0) mg/dL Direct Bilirubin 0.2 (0.0-0.5) mg/dL AST 23 (5-31) U/L ALT 17 (0-31) U/L Alkaline Phosphatase 81 (39-117) U/L Total Protein 6.8 (6.5-8.0) g/dL Albumin 3.7 (3.5-5.0) g/dL Lipase 31 (8-78) U/L Urine Color Urine Appearance Urine pH (5.0-9.0) Ur Specific Surprise (1.005-1.025) Urine Protein (Neg-Trace) mg/dL Urine Glucose (UA) (Negative) mg/dL Urine Ketones (Negative) mg/dL Urine Blood (Negative) Urine Nitrite (Negative) Ur Leukocyte Esterase (Negative) Urine RBC (0-2) /HPF Urine WBC (0-5) /HPF Ur Squamous Epith Cells (0-2) /HPF Urine Bacteria (None Seen) Hyaline Casts (0-2) /LPF COVID-19 (PETER) Negative (Negative) COVID-19 Clin Com See Note 09/14/22 Range/Units 13:01 WBC (4.8-10.8) X10*3/uL RBC (4.20-5.50) X10*6/uL Hgb (12.0-16.0) g/dl Hct (37.0-47.0) % MCV (80.0-98.0) fL MCH (27.0-33.0) pg MCHC (31.0-35.0) g/dl RDW (11.0-16.0) % Plt Count (160-400) X10*3/uL MPV (9.4-12.3) fL Immature Gran % (Auto) (0.0-0.4) % Neut % (Auto) (45-73) % Lymph % (Auto) (20-40) % Overton % (Auto) (2-11) % Eos % (Auto) (0-4) % Baso % (Auto) (0-2) % Lymph # (Auto) (1.2-4.9) X10*3/uL Overton # (Auto) (0.1-1.2) X10*3/uL Eos # (Auto) (0.0-0.4) X10*3/uL Baso # (Auto) (0.0-0.2) X10*3/uL Abs Immat Gran (auto) (0.00-0.03) X10*3/uL Absolute Neuts (auto) (2.0-8.3) x10*3/uL Absolute Nucleated RBC (0.0-0.012) X10*3/uL Nucleated RBC % (auto) (0.0-0.2) /100WBC Sodium (135-145) mmol/L Potassium (3.3-5.1) mmol/L Chloride (96-108) mmol/L Carbon Dioxide (22-29) mmol/L Anion Gap (12-20) BUN (9-16) mg/dL Creatinine (0.5-1.4) mg/dL Estim Creat Clear Calc Estimated GFR Random Glucose (60-115) mg/dL Calcium (8.4-10.2) mg/dL Magnesium (1.6-2.6) mg/dL Total Bilirubin (0.0-1.0) mg/dL Direct Bilirubin (0.0-0.5) mg/dL AST (5-31) U/L ALT (0-31) U/L Alkaline Phosphatase (39-117) U/L Total Protein (6.5-8.0) g/dL Albumin (3.5-5.0) g/dL Lipase (8-78) U/L Urine Color Yellow Urine Appearance Cloudy Urine pH 5.5 (5.0-9.0) Ur Specific Surprise 1.020 (1.005-1.025) Urine Protein Trace (Neg-Trace) mg/dL Urine Glucose (UA) 500 H (Negative) mg/dL Urine Ketones Trace (Negative) mg/dL Urine Blood Small (1+) H (Negative) Urine Nitrite Negative (Negative) Ur Leukocyte Esterase Moderate (2+) H (Negative) Urine RBC 11-20 H (0-2) /HPF Urine WBC 11-20 H (0-5) /HPF Ur Squamous Epith Cells >20 (0-2) /HPF Urine Bacteria Trace (None Seen) Hyaline Casts 0-2 (0-2) /LPF COVID-19 (PETER) (Negative) COVID-19 Clin Com <WILTON Oneal - Last Filed: 09/14/22 12:48> Lab Results 09/14/22 09/14/22 09/14/22 Range/Units 12:56 12:56 12:56 WBC 7.5 (4.8-10.8) X10*3/uL RBC 4.57 (4.20-5.50) X10*6/uL Hgb 10.4 L (12.0-16.0) g/dl Hct 35.0 L (37.0-47.0) % MCV 76.6 L (80.0-98.0) fL MCH 22.8 L (27.0-33.0) pg MCHC 29.7 L (31.0-35.0) g/dl RDW 18.5 H (11.0-16.0) % Plt Count 236 (160-400) X10*3/uL MPV 9.2 L (9.4-12.3) fL Immature Gran % (Auto) 0.3 (0.0-0.4) % Neut % (Auto) 73.5 H (45-73) % Lymph % (Auto) 18.7 L (20-40) % Overton % (Auto) 6.8 (2-11) % Eos % (Auto) 0.4 (0-4) % Baso % (Auto) 0.3 (0-2) % Lymph # (Auto) 1.4 (1.2-4.9) X10*3/uL Overton # (Auto) 0.5 (0.1-1.2) X10*3/uL Eos # (Auto) 0.0 (0.0-0.4) X10*3/uL Baso # (Auto) 0.0 (0.0-0.2) X10*3/uL Abs Immat Gran (auto) 0.02 (0.00-0.03) X10*3/uL Absolute Neuts (auto) 5.5 (2.0-8.3) x10*3/uL Absolute Nucleated RBC 0.000 (0.0-0.012) X10*3/uL Nucleated RBC % (auto) 0.0 (0.0-0.2) /100WBC Sodium 139 (135-145) mmol/L Potassium 4.5 (3.3-5.1) mmol/L Chloride 109 H (96-108) mmol/L Carbon Dioxide 23 (22-29) mmol/L Anion Gap 12 (12-20) BUN 30 H (9-16) mg/dL Creatinine 0.95 (0.5-1.4) mg/dL Estim Creat Clear Calc 35.6 Estimated GFR 56 Random Glucose 99 (60-115) mg/dL Calcium 8.9 (8.4-10.2) mg/dL Magnesium 1.8 (1.6-2.6) mg/dL Total Bilirubin 0.8 (0.0-1.0) mg/dL Direct Bilirubin 0.2 (0.0-0.5) mg/dL AST 23 (5-31) U/L ALT 17 (0-31) U/L Alkaline Phosphatase 81 (39-117) U/L Total Protein 6.8 (6.5-8.0) g/dL Albumin 3.7 (3.5-5.0) g/dL Lipase 31 (8-78) U/L Urine Color Urine Appearance Urine pH (5.0-9.0) Ur Specific Surprise (1.005-1.025) Urine Protein (Neg-Trace) mg/dL Urine Glucose (UA) (Negative) mg/dL Urine Ketones (Negative) mg/dL Urine Blood (Negative) Urine Nitrite (Negative) Ur Leukocyte Esterase (Negative) Urine RBC (0-2) /HPF Urine WBC (0-5) /HPF Ur Squamous Epith Cells (0-2) /HPF Urine Bacteria (None Seen) Hyaline Casts (0-2) /LPF COVID-19 (PETER) Negative (Negative) COVID-19 Clin Com See Note 09/14/22 Range/Units 13:01 WBC (4.8-10.8) X10*3/uL RBC (4.20-5.50) X10*6/uL Hgb (12.0-16.0) g/dl Hct (37.0-47.0) % MCV (80.0-98.0) fL MCH (27.0-33.0) pg MCHC (31.0-35.0) g/dl RDW (11.0-16.0) % Plt Count (160-400) X10*3/uL MPV (9.4-12.3) fL Immature Gran % (Auto) (0.0-0.4) % Neut % (Auto) (45-73) % Lymph % (Auto) (20-40) % Overton % (Auto) (2-11) % Eos % (Auto) (0-4) % Baso % (Auto) (0-2) % Lymph # (Auto) (1.2-4.9) X10*3/uL Overton # (Auto) (0.1-1.2) X10*3/uL Eos # (Auto) (0.0-0.4) X10*3/uL Baso # (Auto) (0.0-0.2) X10*3/uL Abs Immat Gran (auto) (0.00-0.03) X10*3/uL Absolute Neuts (auto) (2.0-8.3) x10*3/uL Absolute Nucleated RBC (0.0-0.012) X10*3/uL Nucleated RBC % (auto) (0.0-0.2) /100WBC Sodium (135-145) mmol/L Potassium (3.3-5.1) mmol/L Chloride (96-108) mmol/L Carbon Dioxide (22-29) mmol/L Anion Gap (12-20) BUN (9-16) mg/dL Creatinine (0.5-1.4) mg/dL Estim Creat Clear Calc Estimated GFR Random Glucose (60-115) mg/dL Calcium (8.4-10.2) mg/dL Magnesium (1.6-2.6) mg/dL Total Bilirubin (0.0-1.0) mg/dL Direct Bilirubin (0.0-0.5) mg/dL AST (5-31) U/L ALT (0-31) U/L Alkaline Phosphatase (39-117) U/L Total Protein (6.5-8.0) g/dL Albumin (3.5-5.0) g/dL Lipase (8-78) U/L Urine Color Yellow Urine Appearance Cloudy Urine pH 5.5 (5.0-9.0) Ur Specific Surprise 1.020 (1.005-1.025) Urine Protein Trace (Neg-Trace) mg/dL Urine Glucose (UA) 500 H (Negative) mg/dL Urine Ketones Trace (Negative) mg/dL Urine Blood Small (1+) H (Negative) Urine Nitrite Negative (Negative) Ur Leukocyte Esterase Moderate (2+) H (Negative) Urine RBC 11-20 H (0-2) /HPF Urine WBC 11-20 H (0-5) /HPF Ur Squamous Epith Cells >20 (0-2) /HPF Urine Bacteria Trace (None Seen) Hyaline Casts 0-2 (0-2) /LPF COVID-19 (PETER) (Negative) COVID-19 Clin Com <Brandy Connor MD - Last Filed: 09/14/22 20:10> Medications Administered Discontinued Medications Generic Name Dose Route Start Last Admin Trade Name Freq PRN Reason Stop Dose Admin Ceftriaxone Sodium 1 gm/ 50 mls @ 100 mls/hr 09/14/22 17:33 09/14/22 17:30 Sodium Chloride IV 09/14/22 18:02 Infused ONCE ONE Infusion <WILTON Oneal - Last Filed: 09/14/22 12:48> Medications Administered Discontinued Medications Generic Name Dose Route Start Last Admin Trade Name Freq PRN Reason Stop Dose Admin Ceftriaxone Sodium 1 gm/ 50 mls @ 100 mls/hr 09/14/22 17:33 09/14/22 17:30 Sodium Chloride IV 09/14/22 18:02 Infused ONCE ONE Infusion <Brandy Connor MD - Last Filed: 09/14/22 20:10> Discharge Plan Discharge Clinical Impression: Acute UTI, Constipation <WILTON Oneal - Last Filed: 09/14/22 12:48> Patient Disposition: Home, Self-Care <WILTON Oneal - Last Filed: 09/14/22 12:48> Additional Instructions: Please follow-up with your primary care physician tomorrow. If you have any worsening or new symptoms, please return to the emergency room or call 911 <WILTON Oneal - Last Filed: 09/14/22 12:48> Prescriptions: New lactulose 10 gram/15 mL (15 mL) solution 20 g PO BID 2 Days Qty: 120 0RF cefuroxime axetil 500 mg tablet 500 mg PO BID Qty: 14 0RF No Action metoprolol succinate 50 mg tablet extended release 24 hr 1 tab PO DAILY amlodipine 5 mg tablet 1 tab PO DAILY glipizide 2.5 mg tablet extended release 24hr 1 tab PO QAM simvastatin 20 mg tablet 1 tab PO BEDTIME lisinopril 10 mg tablet 1 tab PO DAILY furosemide 20 mg tablet 1 tab PO DAILY estradiol 0.01 % (0.1 mg/gram) cream 1 g topical 2XW Eliquis 5 mg Tablet 5 mg PO BID Qty: 120 9RF cefuroxime axetil 500 mg tablet 500 mg PO BID Qty: 14 0RF polyethylene glycol 3350 [Miralax] 17 gram/dose powder 17 g PO DAILY Qty: 238 0RF <WILTON Oneal - Last Filed: 09/14/22 12:48>
[2022-09-14 12:45] VITALS: BP 150/79; PULSE 102; RESP 16; TEMP 35.9; O2SAT 98; BMI 26.4
[2022-09-14 13:12] LABS: MANUAL DIFF FLAG NO
[2022-09-14 13:15] LABS: Basophils Percent Auto 0.3 % (0-2); Eosinophils Percent Auto 0.4 % (0-4); Hemoglobin 10.4 g/dl (12.0-16.0); Imm Gran Abs Auto 0.02 X10*3/uL (0.00-0.03); Imm Gran Pct Auto 0.3 % (0.0-0.4); Lymphocytes Absolute Auto 1.4 X10*3/uL (1.2-4.9); Lymphocytes Percent Auto 18.7 % (20-40); Mean Corpuscular HGB Conc 29.7 g/dl (31.0-35.0); Mean Corpuscular Hemoglobin 22.8 pg (27.0-33.0); Mean Corpuscular Volume 76.6 fL (80.0-98.0); Mean Platelet Volume 9.2 fL (9.4-12.3); Monocytes Absolute Auto 0.5 X10*3/uL (0.1-1.2); Monocytes Percent Auto 6.8 % (2-11); Neutrophils Absolute Auto 5.5 x10*3/uL (2.0-8.3); Neutrophils Percent Auto 73.5 % (45-73); Platelet Count 236 X10*3/uL (160-400); Red Blood Count 4.57 X10*6/uL (4.20-5.50); Red Cell Distribution Width 18.5 % (11.0-16.0); White Blood Count 7.5 X10*3/uL (4.8-10.8)
[2022-09-14 13:37] LABS: COVID-19 Test Negative (Negative); IDNOW Serial# BCCEAD1C
[2022-09-14 13:39] LABS: Appearance Urine Cloudy; Color Urine Yellow; Glucose Urine UA 500 mg/dL (Negative); Leukocyte Esterase Urine Moderate (2+) (Negative); Nitrite Urine Negative (Negative); PH 5.5 (5.0-9.0); UMIC TRIGGER UACC YES; Urine Blood Small (1+) (Negative); Urine Ketones Trace mg/dL (Negative); Urine Protein Trace mg/dL (Neg-Trace)
[2022-09-14 13:43] LABS: Alanine Aminotransferase 17 U/L (0-31); Albumin Level 3.7 g/dL (3.5-5.0); Alkaline Phosphatase 81 U/L (39-117); Anion Gap 12 (12-20); Aspartate Amino Transferase 23 U/L (5-31); Bilirubin Direct 0.2 mg/dL (0.0-0.5); Bilirubin Total 0.8 mg/dL (0.0-1.0); Blood Urea Nitrogen 30 mg/dL (9-16); Calcium 8.9 mg/dL (8.4-10.2); Carbon Dioxide 23 mmol/L (22-29); Chloride 109 mmol/L (96-108); Creatinine Clr Calc Pharmacy 35.6; Estimated Glomerular Filt Rate 56; Glucose Random 99 mg/dL (60-115); Lipase 31 U/L (8-78); Magnesium 1.8 mg/dL (1.6-2.6); Potassium 4.5 mmol/L (3.3-5.1); Sodium 139 mmol/L (135-145); Total Protein 6.8 g/dL (6.5-8.0)
[2022-09-14 14:04] LABS: Bacteria Urine Trace (None Seen); Hyaline Casts Urine 0-2 /LPF (0-2); Squamous Epithelial Cell Urine >20 /HPF (0-2); UACC Culture Trigger YES
[2022-09-14 14:59] VITALS: BP 157/76; PULSE 78; RESP 14; TEMP 36.7; O2SAT 100
[2022-09-14] MEDS: cefTRIAXone sodium 1 GM in 0.9 % Sodium Chloride 50 ML IV (17:00)
--- NOTE | 2022-09-14 17:30 | PC.NURSE ---
abx needs to be switched from IM to IV. Dr. Connor aware
--- NOTE | 2022-09-14 20:08 | PC.NURSE ---
Pt. reports having a bowel movement. Pt. is waiting for d/c and requests her dtr be called when her paperwork is ready. Pt. currently sitting in chair in her room, under no apparent distress.
== END 2022-09-14 20:22 | disposition home or self-care (01) ==
PROVIDERS: Physician Assistant; Emergency Provider Emergency Medicine; PCP Internal Medicine
DX: N39.0 Urinary tract infection, site not specified (principal); K59.00 Constipation, unspecified; Z20.822 Contact with and (suspected) exposure to COVID-19; E11.9 Type 2 diabetes mellitus without complications; Z86.711 Personal history of pulmonary embolism; Z79.02 Long term (current) use of antithrombotics/antiplatelets; Z79.899 Other long term (current) drug therapy; Z79.01 Long term (current) use of anticoagulants
CPT/HCPCS: 36415; 51798; 74176; 80048; 80076; 81001; 83690; 83735; 85025; 87086; 87635; 96365; 99284; J0696

== ENCOUNTER 2022-09-20 09:12 | Outpatient (REF) | payer MEDICARE, SELFPAY ==
[2022-09-20 10:51] LABS: MANUAL DIFF FLAG NO
[2022-09-20 11:09] LABS: Basophils Percent Auto 0.7 % (0-2); Eosinophils Absolute Auto 0.1 X10*3/uL (0.0-0.4); Eosinophils Percent Auto 1.5 % (0-4); Hematocrit 32.2 % (37.0-47.0); Hemoglobin 9.5 g/dl (12.0-16.0); Imm Gran Abs Auto 0.02 X10*3/uL (0.00-0.03); Imm Gran Pct Auto 0.4 % (0.0-0.4); Lymphocytes Percent Auto 22.5 % (20-40); Mean Corpuscular HGB Conc 29.5 g/dl (31.0-35.0); Mean Corpuscular Hemoglobin 23.1 pg (27.0-33.0); Mean Corpuscular Volume 78.2 fL (80.0-98.0); Mean Platelet Volume 9.8 fL (9.4-12.3); Monocytes Absolute Auto 0.4 X10*3/uL (0.1-1.2); Monocytes Percent Auto 9.2 % (2-11); Neutrophils Percent Auto 65.7 % (45-73); Platelet Count 222 X10*3/uL (160-400); Red Blood Count 4.12 X10*6/uL (4.20-5.50); Red Cell Distribution Width 18.9 % (11.0-16.0); White Blood Count 4.6 X10*3/uL (4.8-10.8)
[2022-09-20 11:57] LABS: Alanine Aminotransferase 12 U/L (0-31); Albumin Level 3.5 g/dL (3.5-5.0); Alkaline Phosphatase 58 U/L (39-117); Anion Gap 13 (12-20); Aspartate Amino Transferase 19 U/L (5-31); Blood Urea Nitrogen 22 mg/dL (9-16); Calcium 8.5 mg/dL (8.4-10.2); Carbon Dioxide 23 mmol/L (22-29); Chloride 110 mmol/L (96-108); Estimated Glomerular Filt Rate 56; Glucose Fasting 164 mg/dL (60-99); Potassium 4.5 mmol/L (3.3-5.1); Sodium 141 mmol/L (135-145); Total Protein 6.2 g/dL (6.5-8.0)
[2022-09-20 11:58] LABS: Estimated Average Glucose 226 mg/dL; Hemoglobin A1c % 9.5 %
== END 2022-09-20 09:13 | disposition home or self-care (01) ==
LOC: HO.10HDL 09:12
PROVIDERS: Visit Provider Internal Medicine
DX: I12.9 Hypertensive chronic kidney disease with stage 1 through stage 4 chronic kidney disease, or unspecified chronic kidney disease (principal); E11.22 Type 2 diabetes mellitus with diabetic chronic kidney disease; N18.9 Chronic kidney disease, unspecified; E11.65 Type 2 diabetes mellitus with hyperglycemia; D63.8 Anemia in other chronic diseases classified elsewhere
CPT/HCPCS: 36415; 80053; 83036; 85025

== ENCOUNTER 2022-12-15 09:17 | Outpatient (REF) | payer MEDICARE, SELFPAY ==
[2022-12-15 10:22] LABS: MANUAL DIFF FLAG NO
[2022-12-15 10:31] LABS: Basophils Percent Auto 0.6 % (0-2); Eosinophils Percent Auto 1.1 % (0-4); Hemoglobin 8.3 g/dl (12.0-16.0); Imm Gran Abs Auto 0.01 X10*3/uL (0.00-0.03); Imm Gran Pct Auto 0.3 % (0.0-0.4); Lymphocytes Absolute Auto 0.9 X10*3/uL (1.2-4.9); Mean Corpuscular HGB Conc 28.6 g/dl (31.0-35.0); Mean Corpuscular Volume 73.2 fL (80.0-98.0); Mean Platelet Volume 9.7 fL (9.4-12.3); Monocytes Absolute Auto 0.3 X10*3/uL (0.1-1.2); Monocytes Percent Auto 9.5 % (2-11); Neutrophils Absolute Auto 2.3 x10*3/uL (2.0-8.3); Neutrophils Percent Auto 64.5 % (45-73); Platelet Count 209 X10*3/uL (160-400); Red Blood Count 3.96 X10*6/uL (4.20-5.50); Red Cell Distribution Width 18.4 % (11.0-16.0); White Blood Count 3.6 X10*3/uL (4.8-10.8)
[2022-12-15 11:13] LABS: D Dimer High Sensitivity 255 NG/ML
[2022-12-15 11:15] LABS: Alanine Aminotransferase 8 U/L (0-31); Albumin Level 3.5 g/dL (3.5-5.0); Alkaline Phosphatase 73 U/L (39-117); Anion Gap 12 (12-20); Aspartate Amino Transferase 14 U/L (5-31); Bilirubin Total 1.2 mg/dL (0.0-1.0); Blood Urea Nitrogen 15 mg/dL (9-16); Calcium 9.2 mg/dL (8.4-10.2); Carbon Dioxide 23 mmol/L (22-29); Chloride 108 mmol/L (96-108); Estimated Glomerular Filt Rate 51; Glucose Random 158 mg/dL (60-115); Sodium 139 mmol/L (135-145); Total Protein 6.9 g/dL (6.5-8.0)
[2022-12-15 11:18] LABS: Ferritin 19 ng/mL (10-250)
[2022-12-15 11:23] LABS: Estimated Average Glucose 177 mg/dL; Hemoglobin A1C 141.8566 umol/L; Hemoglobin A1c % 7.8 %
== END 2022-12-15 09:18 | disposition home or self-care (01) ==
LOC: HO.10HDL 09:17
PROVIDERS: Internal Medicine; Visit Provider Internal Medicine Medical Oncology
DX: I26.99 Other pulmonary embolism without acute cor pulmonale (principal); D64.89 Other specified anemias; E11.65 Type 2 diabetes mellitus with hyperglycemia; E78.00 Pure hypercholesterolemia, unspecified; R80.8 Other proteinuria
CPT/HCPCS: 36415; 80053; 82728; 83036; 85025; 85379

== ENCOUNTER 2022-12-26 09:37 | Emergency (ER) | payer MEDICARE, SELFPAY ==
--- NOTE | ~2022-12-26 | XR_ITS ---
EXAMINATION: XR ABDOMEN KUB CLINICAL INDICATION: Constipation. COMPARISON: 07/06/2022 KUB. TECHNIQUE: AP view of the abdomen. FINDINGS: There is a nonobstructive bowel gas pattern. Mild to moderate stool seen within the colon distally to the rectum. Mild lumbar levoscoliosis and mild to moderate multilevel degenerative changes are again seen without significant change. Surgical clips overlie the right lower quadrant. XR/XR KUB IMPRESSION: Nonobstructive bowel gas pattern. Mild to moderate colonic stool burden
[2022-12-26 09:44] VITALS: BP 130/80; PULSE 100; RESP 19; TEMP 36.6; O2SAT 96; BMI 26.3
--- NOTE | 2022-12-26 12:41 | ED.GENADULT ---
HPI - General Adult General Chief complaint: General Medical Stated complaint: Constipation Time Seen by Provider: 12/26/22 10:06 Source: patient and RN notes reviewed Mode of arrival: ambulatory Limitations: no limitations History of Present Illness HPI narrative: This is a 87-year-old female, with a past medical history of hypertension, hyperlipidemia presenting to the emergency department for evaluation of constipation x4 days. Patient reports that her is in the hospital right now and her diet has been consisting of cookies and crackers, which is atypical of her. She states that she typically is able to move her bowels without a problem. Patient denies any fevers, chills, chest pain, shortness of breath, vomiting, nausea, or diarrhea. Denies any urinary symptoms. Denies any abdominal surgeries in the past. No other complaints or concerns at this time. MD complaint: Constipation Onset (ago): day(s) Relieving factors: none Exacerbating factors: none Associated symptoms: denies other symptoms Treatments prior to arrival: none Related Data Home Medications Medication Instructions Recorded Confirmed amlodipine 5 mg tablet 1 tab PO DAILY 05/20/20 12/19/22 estradiol 0.01% (0.1 mg/gram) 1 g topical 2XW 05/20/20 12/19/22 vaginal cream furosemide 20 mg tablet 1 tab PO DAILY 05/20/20 12/19/22 glipizide 2.5 mg tablet, extended 1 tab PO QAM 05/20/20 12/19/22 release 24 hr lisinopril 10 mg tablet 1 tab PO DAILY 05/20/20 12/19/22 metoprolol succinate 50 mg 1 tab PO DAILY 05/20/20 12/19/22 tablet,extended release 24 hr simvastatin 20 mg tablet 1 tab PO BEDTIME 05/20/20 12/19/22 Previous Rx's Medication Instructions Recorded polyethylene glycol 3350 17 17 g PO DAILY #238 grams 07/06/22 gram/dose oral powder (Miralax) apixaban 5 mg tablet (Eliquis) 5 mg PO BID #120 tabs 08/21/22 lactulose 10 gram/15 mL (15 mL) 20 g (30 mL) PO BID 2 days #120 mL 09/14/22 oral solution ferrous sulfate 325 mg (65 mg 325 mg PO BID #60 tabs 12/19/22 iron) tablet docusate sodium 100 mg capsule 100 mg PO BID #14 caps 12/26/22 polyethylene glycol 3350 17 gram 17 g PO DAILY #14 ea 12/26/22 oral powder packet (Miralax) Allergies Allergy/AdvReac Type Severity Reaction Status Date / Time No Known Allergies Allergy Verified 12/26/22 09:43 [No Known Allergies*] Review of Systems Review of Systems: Constitutional: No Weight loss, No Fever, No Chills ENT/Mouth: No Ear Pain, No Nasal Congestion, No Sinus Pain, No Hoarseness, No sore throat, No Rhinorrhea, No Swallowing Difficulty Cardiovascular: No Chest Pain, No SOB Respiratory: No Cough, No Sputum, No Wheezing Gastrointestinal: No Nausea, No Vomiting, No Diarrhea, +Constipation, No Abdominal pain Genitourinary: No Dysuria, No Urinary Frequency, No Hematuria, No Urinary Incontinence/retention, No Urgency, No Flank Pain Musculoskeletal: No joint pain, No Myalgias, No Joint Swelling Skin: No Skin Lesions, No rash Neuro: No Weakness, No Numbness, No Paresthesias Yes all other systems are reviewed and are negative Constitutional: Constitutional: Reports as per [facility] Past Medical History Medical History Acute respiratory distress Arthritis HTN (hypertension) Hypoxemia Pulmonary embolism Type 2 diabetes mellitus Unsteady gait Family History Family History Family/Other Diabetes Other No family history of cancer Social History Social History Household Members: Spouse Housing: House Are you a primary point of care specialist to a significant other at home: No Do you presently have visiting nurse or other home services: No Alcohol intake: never Patient Tobacco Use Status: Never used Tobacco Advance Directives: No service: No Current occupational status: retired Physical Exam ED Vital Signs: Vital Signs - 24 hr 12/26/22 09:44 Temperature 98 F Pulse Rate 100 Respiratory Rate 19 Blood Pressure 130/80 Pulse Oximetry 96 Oxygen Delivery Method Room Air BMI result Body Mass Index 26.3 Const General: cooperative, comfortable and no acute distress Orientation/consciousness: patient oriented x3 Limitations: no limitations HENMT Head: Yes normal to inspection, Yes normocephalic and Yes atraumatic Ears: hearing grossly normal bilaterally General nose exam: Normal external nose present Face and sinus: Yes normal facial exam Mouth: Normal oral and palatal mucosa present, oropharynx normal and moist mucous membranes Throat: Yes posterior oropharynx normal Eyes General: appearance normal, both eyes and all related structures Eyelids: Yes eyelids normal Conjunctivae: conjunctivae normal Sclerae: sclerae normal Pupils: Equal, round and reactive pupils present EOM: EOMs intact bilaterally Neck Neck: Yes normal visual inspection, Yes full ROM and Yes no lymphadenopathy Lymphatic: no lymphadenopathy noted Chest Chest palpation & inspection: normal inspection of the chest Resp Effort & Inspection: normal respiratory effort and able to speak in complete sentences Auscultation: clear to auscultation bilaterally, no crackles, no rales, no rhonchi and no wheezes Cardio Rate: regular rate Rhythm: regular rhythm Heart sounds: S1 normal heart sound present and S2 normal heart sound present GI Other: Abdomen is soft, non tender, nondistended. Hypoactive bowel sounds present in all 4 quadrants. Inspection: Yes normal to inspection Skin General skin exam: no rashes or lesions noted Trauma: no lacerations or abrasions Wounds: no wounds Neuro General: patient oriented x3 and moves all extremities Cranial nerves: Yes Equal, round and reactive pupils present Extrem General: Yes normal to inspection Right upper extremity: normal to inspection Left upper extremity: normal to inspection Right lower extremity: normal to inspection Left lower extremity: normal to inspection Medical Decision Making Medical Decision Making MDM Narrative: 87-year-old female presenting to the emergency department for evaluation constipation x4 days. Vital signs stable, abdomen is soft, nondistended non tender. Hypoactive bowel sounds present. Able to tolerate p.o. without difficulty. No fevers, vomiting or nausea. KUB x-ray obtained revealing nonobstructive bowel gas pattern with mild to moderate colonic stool burden. Patient admits to recent diet change as patient's is currently in the hospital. Will treat constipation with MiraLax and docusate at home as patient declines wanting a enema in the emergency department right now., given return precautions if any new or worsening symptoms occur. Patient stands agrees with plan, patient stable for discharge Differential Diagnosis Differential Diagnoses: The differential diagnosis associated with the presentation includes Constipation, SBO, ischemic bowel - unlikely, gastritis Discharge Plan Discharge Clinical Impression: Constipation Patient Disposition: Home, Self-Care Instructions: Constipation (ED) Additional Instructions: Please drink plenty of fluids and get plenty of rest. Take prescribed medication as directed. Take frequent walks as this helps stimulate your bowels and can reduce constipation symptoms. If any new or worsening symptoms occur, including but not limited to fevers, chills, worsening abdominal pain, unable to eat or drink, vomiting or nausea, please return for re-evaluation. Call your primary care physician regarding this visit. Prescriptions: New polyethylene glycol 3350 [Miralax] 17 gram powder in packet 17 g PO DAILY Qty: 14 0RF docusate sodium 100 mg capsule 100 mg PO BID Qty: 14 0RF No Action metoprolol succinate 50 mg tablet extended release 24 hr 1 tab PO DAILY amlodipine 5 mg tablet 1 tab PO DAILY glipizide 2.5 mg tablet extended release 24hr 1 tab PO QAM simvastatin 20 mg tablet 1 tab PO BEDTIME lisinopril 10 mg tablet 1 tab PO DAILY furosemide 20 mg tablet 1 tab PO DAILY estradiol 0.01 % (0.1 mg/gram) cream 1 g topical 2XW Eliquis 5 mg Tablet 5 mg PO BID Qty: 120 9RF ferrous sulfate 325 mg (65 mg iron) Tablet 325 mg PO BID Qty: 60 3RF polyethylene glycol 3350 [Miralax] 17 gram/dose powder 17 g PO DAILY Qty: 238 0RF lactulose 10 gram/15 mL (15 mL) solution 20 g PO BID 2 Days Qty: 120 0RF Interventions: ED Discharge Assessment Last Done: 12/26/22 12:53 Discharge Date/Time: 12/26/22 12:53
== END 2022-12-26 12:53 | disposition home or self-care (01) ==
PROVIDERS: Emergency Provider Emergency Medicine; PCP Internal Medicine
DX: K59.00 Constipation, unspecified (principal); Z79.899 Other long term (current) drug therapy
CPT/HCPCS: 74018; 99282; 99283

== ENCOUNTER 2023-01-20 08:32 | Emergency (ER) | payer MEDICARE, SELFPAY ==
[2023-01-20 08:39] VITALS: BP 168/72; PULSE 84; RESP 16; TEMP 35.6; O2SAT 98; BMI 25.6
--- NOTE | 2023-01-20 08:54 | ED.FEMALEGU ---
HPI - Female Genitourinary General Chief complaint: Urogenital-Female Stated complaint: unable to urinate Time Seen by Provider: 01/20/23 08:45 Source: patient Mode of arrival: ambulatory Limitations: no limitations History of Present Illness HPI Narrative: This is an 87 years old female presented to the emergency department complaint of difficult to urinate, she stated that she has been unable to urinate since last night, she has no abdominal pain. She has history of diabetes and hypertension MD elicited complaint: dysuria Onset (ago): day(s) (1) Severity: mild Female Urogenital Radiation: Non-Radiating Quality of pain: cramping Urinary symptoms: Dysuria Related Data Home Medications Medication Instructions Recorded Confirmed amlodipine 5 mg tablet 1 tab PO DAILY 05/20/20 12/19/22 estradiol 0.01% (0.1 mg/gram) 1 g topical 2XW 05/20/20 12/19/22 vaginal cream furosemide 20 mg tablet 1 tab PO DAILY 05/20/20 12/19/22 glipizide 2.5 mg tablet, extended 1 tab PO QAM 05/20/20 12/19/22 release 24 hr lisinopril 10 mg tablet 1 tab PO DAILY 05/20/20 12/19/22 metoprolol succinate 50 mg 1 tab PO DAILY 05/20/20 12/19/22 tablet,extended release 24 hr simvastatin 20 mg tablet 1 tab PO BEDTIME 05/20/20 12/19/22 Previous Rx's Medication Instructions Recorded polyethylene glycol 3350 17 17 g PO DAILY #238 grams 07/06/22 gram/dose oral powder (Miralax) apixaban 5 mg tablet (Eliquis) 5 mg PO BID #120 tabs 08/21/22 lactulose 10 gram/15 mL (15 mL) 20 g (30 mL) PO BID 2 days #120 mL 09/14/22 oral solution ferrous sulfate 325 mg (65 mg 325 mg PO BID #60 tabs 12/19/22 iron) tablet docusate sodium 100 mg capsule 100 mg PO BID #14 caps 12/26/22 polyethylene glycol 3350 17 gram 17 g PO DAILY #14 ea 12/26/22 oral powder packet (Miralax) cephalexin 500 mg capsule 500 mg PO Q8H 5 days #15 caps 01/20/23 Allergies Allergy/AdvReac Type Severity Reaction Status Date / Time No Known Allergies Allergy Verified 12/26/22 09:43 [No Known Allergies*] Review of Systems Review of Systems: Yes all other systems are reviewed and are negative ENT: Reports system reviewed and no additional complaints, except as documented Cardiovascular: Cardiovascular: Reports no additional cardiovascular complaints Respiratory: Respiratory: Reports no additional respiratory complaints Genitourinary: Genitourinary: Reports other (Difficult to urinate) [facility] Past Medical History Medical History Acute respiratory distress Arthritis HTN (hypertension) Hypoxemia Pulmonary embolism Type 2 diabetes mellitus Unsteady gait Family History Family History Family/Other Diabetes Other No family history of cancer Social History Social History Household Members: Spouse Housing: House Are you a primary child day care teacher to a significant other at home: No Do you presently have visiting nurse or other home services: No Alcohol intake: never Patient Tobacco Use Status: Never used Tobacco Smoked in Last 30 Days: No Use of substances other than those prescribed or required for medical reasons: No Advance Directives: No Advance Directives Information Provided: No service: No Current occupational status: retired Physical Exam Vital Signs: Vital Signs: Last Vital Signs Temp 96.1 F L 01/20/23 08:39 Pulse 84 01/20/23 08:39 Resp 16 01/20/23 08:39 BP 168/72 H 01/20/23 08:39 Pulse Ox 98 01/20/23 08:39 O2 Del Method Room Air 01/20/23 08:39 BMI result Body Mass Index 25.6 She looks well she is not toxic-appearing Const: General: cooperative Nutritional Appearance: well nourished Orientation/consciousness: patient oriented x3 HEENT: Head: Yes normal to inspection General nose exam: Normal external nose present Face and sinus: Yes normal facial exam Mouth: Normal oral and palatal mucosa present Neck: Neck: Yes normal visual inspection and Yes full ROM Chest: Chest palpation & inspection: normal inspection of the chest Resp: Effort & Inspection: normal respiratory effort Auscultation: clear to auscultation bilaterally Cardio: Jugular venous distension: no JVD Rate: regular rate Rhythm: regular rhythm GI: Inspection: Yes normal to inspection Palpation (GI): Soft to palpation, not firm and nontender Auscultation: normal bowel sounds Skin: General skin exam: no rashes or lesions noted and elasticity normal Lesions: no lesions Rashes: no rashes Neuro: General: patient oriented x3 Extrem: General: Yes normal to inspection Course Reevaluation(s) Reevaluation #1: She is feeling better, he was able to urinate urine shows some white cell with positive leuk esterasis and she is symptomatic. I will discharge on p.o. antibiotic Time: 12:03 Medications Administered Discontinued Medications Generic Name Dose Route Start Last Admin Trade Name Freq PRN Reason Stop Dose Admin Sodium Chloride 1,000 mls @ 999 mls/hr 01/20/23 09:45 01/20/23 10:48 Ns IVCONT 01/20/23 10:45 Infused .Q1H1M STEPHANIE Infusion Medical Decision Making Medical Decision Making MDM Narrative: Patient presented with difficult to urinate since yesterday will do a bladder scan, which check UA will check labs and reassess Differential Diagnosis Differential Diagnoses: The differential diagnosis associated with the presentation includes Urinary retention/urinary tract infection Admission/Observation Consideration of admission/observation: Escalation of care including admission/observation considered Lab Data [facility] Lab Attestation statement: I reviewed the patient's lab results. 01/20/23 09:21 01/20/23 09:21 Labs: Lab Results 01/20/23 01/20/23 01/20/23 Range/Units 09:21 09:21 10:51 WBC 5.1 (4.8-10.8) X10*3/uL RBC 4.68 (4.20-5.50) X10*6/uL Hgb 11.3 L D (12.0-16.0) g/dl Hct 36.7 L (37.0-47.0) % MCV 78.4 L (80.0-98.0) fL MCH 24.1 L (27.0-33.0) pg MCHC 30.8 L (31.0-35.0) g/dl RDW 26.5 H (11.0-16.0) % Plt Count 146 L D (160-400) X10*3/uL MPV 9.0 L (9.4-12.3) fL Immature Gran % (Auto) 0.4 (0.0-0.4) % Neut % (Auto) 76.5 H (45-73) % Lymph % (Auto) 14.6 L (20-40) % [place] % (Auto) 7.5 (2-11) % Eos % (Auto) 0.4 (0-4) % Baso % (Auto) 0.6 (0-2) % Lymph # (Auto) 0.7 L (1.2-4.9) X10*3/uL [place] # (Auto) 0.4 (0.1-1.2) X10*3/uL Eos # (Auto) 0.0 (0.0-0.4) X10*3/uL Baso # (Auto) 0.0 (0.0-0.2) X10*3/uL Abs Immat Gran (auto) 0.02 (0.00-0.03) X10*3/uL Absolute Neuts (auto) 3.9 (2.0-8.3) x10*3/uL Absolute Nucleated RBC 0.000 (0.0-0.012) X10*3/uL Nucleated RBC % (auto) 0.0 (0.0-0.2) /100WBC Sodium 142 (135-145) mmol/L Potassium 3.3 (3.3-5.1) mmol/L Chloride 113 H (96-108) mmol/L Carbon Dioxide 21 L (22-29) mmol/L Anion Gap 11 L (12-20) BUN 15 (9-16) mg/dL Creatinine 1.00 (0.5-1.4) mg/dL Estim Creat Clear Calc 34.0 Estimated GFR 52 Random Glucose 117 H (60-115) mg/dL Calcium 9.0 (8.4-10.2) mg/dL Total Bilirubin 1.0 (0.0-1.0) mg/dL AST 19 (5-31) U/L ALT 13 (0-31) U/L Alkaline Phosphatase 58 (39-117) U/L Total Protein 6.7 (6.5-8.0) g/dL Albumin 3.6 (3.5-5.0) g/dL Urine Color Yellow Urine Appearance Clear Urine pH 5.5 (5.0-9.0) Ur Specific [place] 1.010 (1.005-1.025) Urine Protein Negative (Neg-Trace) mg/dL Urine Glucose (UA) Negative (Negative) mg/dL Urine Ketones Negative (Negative) mg/dL Urine Blood Trace H (Negative) Urine Nitrite Negative (Negative) Ur Leukocyte Esterase Moderate (2+) H (Negative) Urine RBC 0-2 (0-2) /HPF Urine WBC 11-20 H (0-5) /HPF Urine WBC Clumps Ur Squamous Epith Cells 11-20 (0-2) /HPF Ur Transition Epith Cell Ur Renal Epithelial Cell Calcium Oxalate Crystal Leucine Crystals Cystine Crystals Tyrosine Crystals Other Crystals Urine Bacteria None Seen (None Seen) Urine Parasites Bilirubin Casts Epithelial Casts Fatty Casts Hyaline Casts 0-2 (0-2) /LPF Granular Casts Waxy Casts Broad Casts RBC Casts WBC Casts Other Casts Urine Trichomonas Urine Yeast 01/20/23 Range/Units 10:51 WBC (4.8-10.8) X10*3/uL RBC (4.20-5.50) X10*6/uL Hgb (12.0-16.0) g/dl Hct (37.0-47.0) % MCV (80.0-98.0) fL MCH (27.0-33.0) pg MCHC (31.0-35.0) g/dl RDW (11.0-16.0) % Plt Count (160-400) X10*3/uL MPV (9.4-12.3) fL Immature Gran % (Auto) (0.0-0.4) % Neut % (Auto) (45-73) % Lymph % (Auto) (20-40) % [place] % (Auto) (2-11) % Eos % (Auto) (0-4) % Baso % (Auto) (0-2) % Lymph # (Auto) (1.2-4.9) X10*3/uL [place] # (Auto) (0.1-1.2) X10*3/uL Eos # (Auto) (0.0-0.4) X10*3/uL Baso # (Auto) (0.0-0.2) X10*3/uL Abs Immat Gran (auto) (0.00-0.03) X10*3/uL Absolute Neuts (auto) (2.0-8.3) x10*3/uL Absolute Nucleated RBC (0.0-0.012) X10*3/uL Nucleated RBC % (auto) (0.0-0.2) /100WBC Sodium (135-145) mmol/L Potassium (3.3-5.1) mmol/L Chloride (96-108) mmol/L Carbon Dioxide (22-29) mmol/L Anion Gap (12-20) BUN (9-16) mg/dL Creatinine (0.5-1.4) mg/dL Estim Creat Clear Calc Estimated GFR Random Glucose (60-115) mg/dL Calcium (8.4-10.2) mg/dL Total Bilirubin (0.0-1.0) mg/dL AST (5-31) U/L ALT (0-31) U/L Alkaline Phosphatase (39-117) U/L Total Protein (6.5-8.0) g/dL Albumin (3.5-5.0) g/dL Urine Color Cancelled Urine Appearance Cancelled Urine pH Cancelled (5.0-9.0) Ur Specific [place] Cancelled (1.005-1.025) Urine Protein Cancelled (Neg-Trace) mg/dL Urine Glucose (UA) Cancelled (Negative) mg/dL Urine Ketones Cancelled (Negative) mg/dL Urine Blood Cancelled (Negative) Urine Nitrite Cancelled (Negative) Ur Leukocyte Esterase Cancelled (Negative) Urine RBC Cancelled (0-2) /HPF Urine WBC Cancelled (0-5) /HPF Urine WBC Clumps Cancelled Ur Squamous Epith Cells Cancelled (0-2) /HPF Ur Transition Epith Cell Cancelled Ur Renal Epithelial Cell Cancelled Calcium Oxalate Crystal Cancelled Leucine Crystals Cancelled Cystine Crystals Cancelled Tyrosine Crystals Cancelled Other Crystals Cancelled Urine Bacteria Cancelled (None Seen) Urine Parasites Cancelled Bilirubin Casts Cancelled Epithelial Casts Cancelled Fatty Casts Cancelled Hyaline Casts Cancelled (0-2) /LPF Granular Casts Cancelled Waxy Casts Cancelled Broad Casts Cancelled RBC Casts Cancelled WBC Casts Cancelled Other Casts Cancelled Urine Trichomonas Cancelled Urine Yeast Cancelled Independent Historian Clinical information obtained from an independent historian. History obtained from or confirmed by: Other (son) Prescription Management I considered prescription management with: Antibiotic Discharge Plan Discharge Clinical Impression: Acute UTI Patient Disposition: Home, Self-Care Instructions: Acute Urinary Retention in Women (ED) Prescriptions: New cephalexin 500 mg capsule 500 mg PO Q8H 5 Days Qty: 15 0RF No Action metoprolol succinate 50 mg tablet extended release 24 hr 1 tab PO DAILY amlodipine 5 mg tablet 1 tab PO DAILY glipizide 2.5 mg tablet extended release 24hr 1 tab PO QAM simvastatin 20 mg tablet 1 tab PO BEDTIME lisinopril 10 mg tablet 1 tab PO DAILY furosemide 20 mg tablet 1 tab PO DAILY estradiol 0.01 % (0.1 mg/gram) cream 1 g topical 2XW Eliquis 5 mg Tablet 5 mg PO BID Qty: 120 9RF ferrous sulfate 325 mg (65 mg iron) Tablet 325 mg PO BID Qty: 60 3RF polyethylene glycol 3350 [Miralax] 17 gram/dose powder 17 g PO DAILY Qty: 238 0RF lactulose 10 gram/15 mL (15 mL) solution 20 g PO BID 2 Days Qty: 120 0RF polyethylene glycol 3350 [Miralax] 17 gram powder in packet 17 g PO DAILY Qty: 14 0RF docusate sodium 100 mg capsule 100 mg PO BID Qty: 14 0RF Referrals: Coleen Amezcua MD [Primary Care Provider] - 2 days
[2023-01-20 09:25] LABS: MANUAL DIFF FLAG NO
[2023-01-20 09:26] LABS: Basophils Percent Auto 0.6 % (0-2); Eosinophils Percent Auto 0.4 % (0-4); Hematocrit 36.7 % (37.0-47.0); Hemoglobin 11.3 g/dl (12.0-16.0); Imm Gran Abs Auto 0.02 X10*3/uL (0.00-0.03); Imm Gran Pct Auto 0.4 % (0.0-0.4); Lymphocytes Absolute Auto 0.7 X10*3/uL (1.2-4.9); Lymphocytes Percent Auto 14.6 % (20-40); Mean Corpuscular HGB Conc 30.8 g/dl (31.0-35.0); Mean Corpuscular Hemoglobin 24.1 pg (27.0-33.0); Mean Corpuscular Volume 78.4 fL (80.0-98.0); Monocytes Absolute Auto 0.4 X10*3/uL (0.1-1.2); Monocytes Percent Auto 7.5 % (2-11); Neutrophils Absolute Auto 3.9 x10*3/uL (2.0-8.3); Neutrophils Percent Auto 76.5 % (45-73); Platelet Count 146 X10*3/uL (160-400); Red Blood Count 4.68 X10*6/uL (4.20-5.50); Red Cell Distribution Width 26.5 % (11.0-16.0); White Blood Count 5.1 X10*3/uL (4.8-10.8)
[2023-01-20] MEDS: 0.9 % Sodium Chloride 1,000 ML 999 ML IVCONT (09:45)
[2023-01-20 09:53] LABS: Alanine Aminotransferase 13 U/L (0-31); Albumin Level 3.6 g/dL (3.5-5.0); Alkaline Phosphatase 58 U/L (39-117); Anion Gap 11 (12-20); Aspartate Amino Transferase 19 U/L (5-31); Blood Urea Nitrogen 15 mg/dL (9-16); Carbon Dioxide 21 mmol/L (22-29); Chloride 113 mmol/L (96-108); Estimated Glomerular Filt Rate 52; Glucose Random 117 mg/dL (60-115); Potassium 3.3 mmol/L (3.3-5.1); Sodium 142 mmol/L (135-145); Total Protein 6.7 g/dL (6.5-8.0)
[2023-01-20 11:08] LABS: Appearance Urine Clear; Color Urine Yellow; Glucose Urine UA Negative (Negative); Leukocyte Esterase Urine Moderate (2+) (Negative); Nitrite Urine Negative (Negative); PH 5.5 (5.0-9.0); UMIC TRIGGER UACC YES; Urine Blood Trace (Negative); Urine Ketones Negative (Negative); Urine Protein Negative (Neg-Trace)
[2023-01-20 11:11] LABS: Bacteria Urine None Seen (None Seen); Hyaline Casts Urine 0-2 /LPF (0-2); RBC Urine 0-2 /HPF (0-2); UACC Culture Trigger YES
== END 2023-01-20 12:10 | disposition home or self-care (01) ==
PROVIDERS: Emergency Provider Emergency Medicine; PCP Internal Medicine
DX: N39.0 Urinary tract infection, site not specified (principal); R30.0 Dysuria; I10 Essential (primary) hypertension; E11.9 Type 2 diabetes mellitus without complications; R09.02 Hypoxemia
CPT/HCPCS: 36415; 80053; 81001; 85025; 87086; 96360; 99284; 99285

== ENCOUNTER 2023-01-22 08:21 | Outpatient (AMB) | payer MEDICARE, SELFPAY ==
--- NOTE | 2023-01-22 08:30 | MHC.OFFVIS ---
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 Accompanied by: Self / Same As Patient Allergies No Known Allergies [No Known Allergies*] Allergy (Verified 01/22/23 08:31) Medication List - Last Reconciled 01/22/23 by Koki Del Castillo, [facility] amlodipine 1 tab PO DAILY cephalexin 500 mg PO Q8H 5 days docusate sodium 100 mg PO BID estradiol 0.01%(0.1mg/gram) 1 g topical 2XW ferrous sulfate 325 mg PO BID furosemide 1 tab PO DAILY glipizide ER 1 tab PO QAM lactulose 20 grams (30 mL) PO BID 2 days lisinopril 1 tab PO DAILY metoprolol succinate ER 1 tab PO DAILY polyethylene glycol 3350 (Miralax) 17 grams PO DAILY polyethylene glycol 3350 (Miralax) 17 grams PO DAILY simvastatin 1 tab PO BEDTIME HPI GI bleed HPI Details 87-year-old female with past medical history of arthritis, hypertension, PE, diabetes, anemia is here today for initial consultation. Patient was sent to be evaluated by her imaging tech for anemia. Patient denies melena, hematochezia, unintentional weight loss or ribbon like stools. Patient has been anemic for the last couple years. Patient was on Eliquis placed in 2019 for PE. Her H&H has been low in the past year. Her last H&H was drawn last week and it came up to 11.3/36.7 and MCV 78.4. Patient seen her oncologist on December 19 and was placed on iron supplements twice a day. Patient never had colonoscopy in the past. Patient states that she is 87 years old and she does not want to go through colonoscopy right now. [facility] Medical History Acute respiratory distress Arthritis HTN (hypertension) Hypoxemia Pulmonary embolism Type 2 diabetes mellitus Unsteady gait Family History Family/Other Diabetes Other No family history of cancer Social History Household Members: Spouse Housing: House Are you a primary primary care physician to a significant other at home: No Do you presently have visiting nurse or other home services: No Alcohol intake: never Patient Tobacco Use Status: Never used Tobacco service: No Current occupational status: retired Review of Systems Const Denies weight gain and Denies weight loss ENT Reports no additional complaints, Denies dysphagia and Denies odynophagia Card Reports no additional complaints Resp Reports no additional complaints GI Denies abdominal pain, Denies belching, Denies melena, Denies bloating, Denies change in bowel habits, Denies dysphagia, Denies excessive flatus, Denies dyspepsia, Denies heartburn, Denies diarrhea, Denies loose stools, Denies nausea, Denies odynophagia and Denies vomiting Musc Reports no additional complaints Neuro Reports no additional complaints Psych Reports no additional complaints Endo Reports no additional complaints Physical Exam Vital Signs: Last Vital Signs Pulse 72 01/22/23 08:31 BP 193/85 H 01/22/23 08:31 BMI result Body Mass Index 25.4 Const General: healthy appearing, no acute distress and well developed Nutritional Appearance: well nourished Orientation/consciousness: patient oriented x3 HEENT Head: Yes normal to inspection, Yes normocephalic and Yes atraumatic Face and sinus: Yes normal facial exam Mouth: Normal oral and palatal mucosa present Throat: Yes posterior oropharynx normal, Yes tonsils normal and Yes uvula midline Eyes General: appearance normal, both eyes and all related structures Neck Neck: Yes normal visual inspection, Yes full ROM and Yes trachea midline Thyroid: Thyroid normal Resp Effort & Inspection: normal respiratory effort, able to speak in complete sentences, no tracheal deviation and symmetric chest movement Auscultation: clear to auscultation bilaterally Cardio Rate: regular rate Heart sounds: S1 normal heart sound present and S2 normal heart sound present GI Inspection: Yes normal to inspection and No distended Palpation (GI): Soft to palpation, not firm, nontender and No hepatosplenomegaly present Auscultation: normal bowel sounds General: Yes no CVA tenderness Back/Spine/Pelvis Back: no CVA tenderness Skin General skin exam: elasticity normal, turgor normal and dry skin Neuro General: patient oriented x3 Psych Appearance: grossly normal Mental Status: mental status grossly normal Speech and movement: Normal speech and movement present Affect: normal affect Results Reviewed Results Reviewed: Laboratory Tests 12/15/22 12/19/22 01/20/23 09:29 15:47 09:21 Hgb 8.3 L 9.0 L 11.3 L D Hct 29.0 L 31.1 L 36.7 L MCV 73.2 L 72.2 L 78.4 L Assessment & Plan Assessment & Plan (1) Anemia: Code(s): D64.9 - Anemia, unspecified Qualifiers: Anemia type: iron deficiency Iron deficiency anemia type: unspecified iron deficiency Qualified Code(s): D50.9 - Iron deficiency anemia, unspecified Plan: Patient can continue iron. Will recheck her blood work next visit. Patient does not want to go for colonoscopy. Discussed with patient that we might be missing polyps or mass. Patient does not want to go for the procedure. To list of food high in iron given to patient (2) Constipation: Code(s): K59.00 - Constipation, unspecified Qualifiers: Constipation type: drug induced constipation Qualified Code(s): K59.03 - Drug induced constipation Plan: Patient was encouraged to increase fluid intake and activity to promote better bowel motility. I will see her in 2 months, sooner on as needed basis. Patient is agreeable to this plan and verbalizes understanding of instructions. She was given the opportunity to ask questions and all questions answered. Thank you for allowing me to participate in her care Medications: Changed From docusate sodium 100 mg PO BID 14 caps 0RF To docusate sodium 100 mg PO BEDTIME 90 caps 1RF Coding Level of Care Code New Pt Level 3 (87314) Diagnoses Anemia D50.9 Anemia type: iron deficiency Iron deficiency anemia type: unspecified iron deficiency Constipation K59.03 Constipation type: drug induced constipation Time Spent (min) 40 Comment 30 minutes spent with patient and additional 10 minutes spent reviewing her records
[2023-01-22 08:31] VITALS: BP 193/85; PULSE 72; BMI 25.4
== END 2023-01-22 08:54 | disposition home or self-care (01) ==
PROVIDERS: PCP Internal Medicine; Visit Provider Nurse Practitioner Family
DX: D50.9 Iron deficiency anemia, unspecified (principal); K59.03 Drug induced constipation
CPT/HCPCS: 99203

== ENCOUNTER → 2023-01-22 08:21 | Outpatient (BNVA) | payer MEDICARE, SELFPAY | PROVIDERS: PCP Internal Medicine; Visit Provider Nurse Practitioner Family | DX: K59.03 Drug induced constipation (principal); D50.9 Iron deficiency anemia, unspecified | CPT/HCPCS: 99202 ==

== ENCOUNTER 2023-04-02 08:51 | Outpatient (REF) | payer MEDICARE, SELFPAY ==
[2023-04-02 10:50] LABS: MANUAL DIFF FLAG NO
[2023-04-02 10:51] LABS: Basophils Percent Auto 0.3 % (0-2); Eosinophils Absolute Auto 0.1 X10*3/uL (0.0-0.4); Eosinophils Percent Auto 0.7 % (0-4); Hematocrit 42.5 % (37.0-47.0); Hemoglobin 14.2 g/dl (12.0-16.0); Imm Gran Abs Auto 0.04 X10*3/uL (0.00-0.03); Imm Gran Pct Auto 0.4 % (0.0-0.4); Lymphocytes Absolute Auto 1.3 X10*3/uL (1.2-4.9); Mean Corpuscular HGB Conc 33.4 g/dl (31.0-35.0); Mean Corpuscular Volume 86.9 fL (80.0-98.0); Mean Platelet Volume 9.8 fL (9.4-12.3); Monocytes Absolute Auto 0.8 X10*3/uL (0.1-1.2); Monocytes Percent Auto 7.6 % (2-11); Neutrophils Absolute Auto 7.8 x10*3/uL (2.0-8.3); Platelet Count 154 X10*3/uL (160-400); Red Blood Count 4.89 X10*6/uL (4.20-5.50); Red Cell Distribution Width 14.3 % (11.0-16.0); White Blood Count 9.9 X10*3/uL (4.8-10.8)
[2023-04-02 11:04] LABS: Estimated Average Glucose 180 mg/dL; Hemoglobin A1c % 7.9 % (<6.0)
[2023-04-02 11:11] LABS: Alanine Aminotransferase 11 U/L (0-31); Albumin Level 3.8 g/dL (3.5-5.0); Alkaline Phosphatase 71 U/L (39-117); Anion Gap 14 (12-20); Aspartate Amino Transferase 16 U/L (5-31); Bilirubin Total 1.3 mg/dL (0.0-1.0); Blood Urea Nitrogen 15 mg/dL (9-16); Calcium 9.4 mg/dL (8.4-10.2); Carbon Dioxide 25 mmol/L (22-29); Chloride 104 mmol/L (96-108); Estimated Glomerular Filt Rate 52; Glucose Random 244 mg/dL (60-115); Sodium 139 mmol/L (135-145); Total Protein 7.2 g/dL (6.5-8.0)
[2023-04-02 11:33] LABS: Ferritin 66 ng/mL (10-250)
== END 2023-04-02 08:52 | disposition home or self-care (01) ==
LOC: HO.10HDL 08:51
PROVIDERS: Visit Provider Internal Medicine
DX: D50.8 Other iron deficiency anemias (principal); E11.9 Type 2 diabetes mellitus without complications; I10 Essential (primary) hypertension; R80.8 Other proteinuria; Z79.01 Long term (current) use of anticoagulants
CPT/HCPCS: 36415; 80053; 82728; 83036; 85025

== ENCOUNTER 2023-05-04 16:53 | Emergency (ER) | payer MEDICARE, SELFPAY ==
--- NOTE | ~2023-05-04 | XR_ITS ---
EXAMINATION: XR ABDOMEN KUB CLINICAL INDICATION: No bowel movement x4 days COMPARISON: 12/26/2022 TECHNIQUE: AP view of the abdomen. FINDINGS: The bowel gas pattern is normal with no evidence of ileus or obstruction. No unusual soft tissue calcifications are noted. Degenerative changes in the spine and hips. Surgical clips in the right lower quadrant. XR/XR abdomen 1V IMPRESSION: Nonobstructive bowel gas pattern.
[2023-05-04 17:44] VITALS: BP 160/97; PULSE 84; RESP 18; TEMP 36.8; O2SAT 96; BMI 27.4
--- NOTE | 2023-05-04 17:46 | ED_ITS ---
HPI - General Adult General Chief complaint: Abdominal Pain Stated complaint: unable to use the restroom Time Seen by Provider: 05/04/23 20:34 Source: patient Mode of arrival: ambulatory Limitations: no limitations History of Present Illness HPI narrative: Patient is a 87 year old assigned female at with a history of HTN presenting to the emergency department today with constipation. Patient states that over the last 4 days she has not had a bowel movement. Patient's daughter states that the patient seems to be more confused and would like use to check her urine for an infection. Patient denies any dizziness, lightheadedness, abdominal pain, nausea, vomiting, fever, chills, blurry vision, double vision, loss of vision, chest pain, difficulty breathing, shortness of breath, back pain, night sweats, pain with urination, increased urinary frequency, increased urinary urgency, blood in her urine or stool, syncope or a near syncopal episode, recent trauma or falls, bowel incontinence, bladder incontinence, bowel retention, bladder retention, or any other complaints at this time. Onset (ago): day(s) (4) Severity: mild Severity scale (1-10): 3 Relieving factors: none Exacerbating factors: none Associated symptoms: denies other symptoms Treatments prior to arrival: none Related Data Home Medications Medication Instructions Recorded Confirmed amlodipine 5 mg tablet 1 tab PO DAILY 05/20/20 01/22/23 estradiol 0.01% (0.1 mg/gram) 1 g topical 2XW 05/20/20 01/22/23 vaginal cream furosemide 20 mg tablet 1 tab PO DAILY 05/20/20 01/22/23 glipizide 2.5 mg tablet, extended 1 tab PO QAM 05/20/20 01/22/23 release 24 hr lisinopril 10 mg tablet 1 tab PO DAILY 05/20/20 01/22/23 metoprolol succinate 50 mg 1 tab PO DAILY 05/20/20 01/22/23 tablet,extended release 24 hr simvastatin 20 mg tablet 1 tab PO BEDTIME 05/20/20 01/22/23 Previous Rx's Medication Instructions Recorded polyethylene glycol 3350 17 17 g PO DAILY #238 grams 07/06/22 gram/dose oral powder (Miralax) lactulose 10 gram/15 mL (15 mL) 20 g (30 mL) PO BID 2 days #120 mL 09/14/22 oral solution ferrous sulfate 325 mg (65 mg 325 mg PO BID #60 tabs 12/19/22 iron) tablet polyethylene glycol 3350 17 gram 17 g PO DAILY #14 ea 12/26/22 oral powder packet (Miralax) cephalexin 500 mg capsule 500 mg PO Q8H 5 days #15 caps 01/20/23 docusate sodium 100 mg capsule 100 mg PO BEDTIME #90 caps 01/22/23 ferrous sulfate 325 mg (65 mg 325 mg PO BID #60 tabs 03/13/23 iron) tablet cefuroxime axetil 250 mg tablet 250 mg PO BID 7 days #14 tabs 05/04/23 Allergies Allergy/AdvReac Type Severity Reaction Status Date / Time No Known Allergies Allergy Verified 05/04/23 17:49 [No Known Allergies*] Review of Systems Constitutional: Constitutional: Reports no additional constitutional complaint s, Denies chills, Denies fever(s) and Denies night sweats Eyes: Eyes: Reports no additional eye complaints, Denies blurry vision, Denies change in vision, Denies diplopia, Denies eye discharge, Denies loss of vision and Denies eye pain ENT: Denies dizziness Cardiovascular: Cardiovascular: Reports no additional cardiovascular complaints, Denies chest pain, Denies lightheadedness, Denies Loss of Consciousness and Denies dyspnea Respiratory: Respiratory: Reports no additional respiratory complaints and Denies dyspnea Gastrointestinal: Gastrointestinal: Reports no additional gastrointestinal complaints, Denies abdominal pain, Denies melena, Denies hematochezia, Denies change in bowel habits, Denies change in stool character and Reports constipation Genitourinary: Genitourinary: Denies hematuria, Denies urinary frequency, Denies dysuria, Denies urinary incontinence, Denies urinary hesitancy and Denies urinary urgency Musculoskeletal: Musculoskeletal: Reports no additional musculoskeletal complaints, Denies numbness and Denies tingling Neurologic: Denies dizziness, Denies loss of vision, Denies numbness and Denies tingling Psychiatric: Psychiatric: Reports no additional psychiatric complaints Endocrine: Endocrine: Reports no additional endocrine complaints Hematologic/Lymphatic: Hematologic/Lymphatic: Reports no additional hematologic/lymphatic complaints Allergic/Immunologic: Allergic/Immunologic: Reports no additional allergic/immunologic complaints PMFSH Past Medical History Attestation statement: The following information was validated with the patient. (patient's daughter validated all information.) Source: old records reviewed, obtained from family (patient's daughter provided additional history and confirmed the history provided by the patient. ) and nursing notes reviewed Medical History Pulmonary embolism Unsteady gait Arthritis Acute respiratory distress Hypoxemia HTN (hypertension) Type 2 diabetes mellitus Family History Family History Family/Other Diabetes Other No family history of cancer Social History Social History Household Members: Spouse Housing: House Are you a primary inpatient care manager rn to a significant other at home: No Do you presently have visiting nurse or other home services: No Alcohol intake: never Patient Tobacco Use Status: Never used Tobacco Smoked in Last 30 Days: No Use of substances other than those prescribed or required for medical reasons: No Advance Directives: No Advance Directives Information Provided: No service: No Current occupational status: retired Physical Exam ED Vital Signs: Vital Signs - 24 hr 05/04/23 17:44 05/04/23 20:21 05/04/23 20:22 Temperature 98.2 F Pulse Rate 84 98 62 Respiratory Rate 18 16 Blood Pressure 160/97 H 196/97 H 212/128 H Pulse Oximetry 96 99 99 Oxygen Delivery Method Room Air Room Air Room Air 05/04/23 21:01 Temperature Pulse Rate 68 Respiratory Rate 15 Blood Pressure 178/75 H Pulse Oximetry 98 Oxygen Delivery Method Room Air BMI result Body Mass Index 27.4 Const General: cooperative, no acute distress, alert and awake Nutritional Appearance: well nourished Orientation/consciousness: patient oriented x3 Limitations: no limitations HENMT Head: Yes normal to inspection and Yes atraumatic Ears: hearing grossly normal bilaterally and external ears normal General nose exam: Normal external nose present, no nasal discharge noted and no epistaxis Face and sinus: Yes normal facial exam, No abrasion and No laceration Mouth: Normal oral and palatal mucosa present, no drooling and no muffled voice Eyes General: appearance normal, both eyes and all related structures Periorbital: periorbital findings normal Eyelids: Yes eyelids normal Conjunctivae: conjunctivae normal Pupils: Equal, round and reactive pupils present EOM: EOMs intact bilaterally Neck Neck: Yes normal visual inspection, Yes full ROM and Yes no lymphadenopathy Chest Chest palpation & inspection: normal inspection of the chest Resp Effort & Inspection: normal respiratory effort and able to speak in complete sentences GI Inspection: Yes normal to inspection Palpation (GI): Soft to palpation, not firm, nontender, no guarding and not rigid Neuro General: patient oriented x3 and moves all extremities Cranial nerves: Yes Equal, round and reactive pupils present Cognition (Neuro): normal cognition Motor exam (neuro): 5/5 motor strength present throughout Sensory Exam: Normal double simultaneous stimulation for sensation Coordination: [id number] test normal Extrem General: Yes normal to inspection, Yes full ROM and Yes capillary refill normal Psych Appearance: grossly normal Mental Status: mental status grossly normal Affect: normal affect Attitude: cooperative Thought process: Normal thought process present Thought content: Normal thought content present Insight: Good insight present (Psych) Course Course Course Narrative: This is a rapid medical exam: Additional HPI, ROS, PE not included below will be deferred to primary provider. Patient is an 87-year-old female presenting to the emergency department with complaint of constipation for 4 days. States last BM was normal. Tried mineral oil and milk of magnesia without relief. Denies any nausea, vomiting, or fevers. Denies abdominal pain, reports mild pressure. Plan: KUB Medications Administered Discontinued Medications Generic Name Dose Route Start Last Admin Trade Name Freq PRN Reason Stop Dose Admin Cefuroxime Axetil 500 mg 05/04/23 23:31 05/04/23 23:46 Cefuroxime Axetil 500 Mg Tablet PO 05/04/23 23:32 500 mg ONCE ONE Administration Medical Decision Making Medical Decision Making [facility] [place] Narrative: Patient is an 87 year old assigned female at with a history of HTN presenting to the emergency department today with constipation and possible UTI. Patient's physical exam was unremarkable. Patient's KUB x-ray showed no obstructed bowel pattern. Patient's urine showed an infection. I explained my physical exam findings as well as all test results to the patient and the patient's daughter. I answered all questions asked by the patient and the patient's daughter. Patient states that she had a bowel movement while in the department and is now no longer constipated. I stressed the importance of the patient taking her medication as prescribed. I stressed the importance of the patient following up with her primary care provider. I stressed the importance of the patient returning to the emergency department immediately if her symptoms were to worsen or if she were to develop any dizziness, shortness of breath, difficulty breathing, chest pain, blurry vision, loss of vision, nausea, vomiting, abdominal pain, fever, chills, back pain, or any other complaints. Patient and the patient's daughter verbalized agreement and understanding with this treatment plan and discharge. Differential Diagnosis Differential Diagnoses: The differential diagnosis associated with the presentation includes Constipation Hypertension UTI Lab Data [facility] [place] Lab Attestation statement: I reviewed the patient's lab results. My interpretation of these results are in the [facility] [place] Rationale portion of this note. Labs: Lab Results 05/04/23 05/04/23 Range/Units 22:17 22:45 POC Glucose 254 H (60-115) mg/dL Urine Color Yellow Urine Appearance Clear Urine pH 7.0 (5.0-9.0) Ur Specific [place] 1.020 (1.005-1.025) Urine Protein 30 (1+) H (Neg-Trace) mg/dL Urine Glucose (UA) >=1000 H (Negative) mg/dL Urine Ketones Negative (Negative) mg/dL Urine Blood Small (1+) H (Negative) Urine Nitrite Negative (Negative) Ur Leukocyte Esterase Negative (Negative) Urine RBC >20 H (0-2) /HPF Urine WBC 21-50 H (0-5) /HPF Ur Squamous Epith Cells 0-2 (0-2) /HPF Urine Bacteria 1+ (None Seen) Hyaline Casts 0-2 (0-2) /LPF Independent Interpretation I performed an independent interpretation of an: Plain X-Ray Interpretation: My interpretation is in agreement with the radiologist's impression of this imaging study. EXAMINATION: XR ABDOMEN KUB CLINICAL INDICATION: No bowel movement x4 days COMPARISON: 12/26/2022 TECHNIQUE: AP view of the abdomen. FINDINGS: The bowel gas pattern is normal with no evidence of ileus or obstruction. No unusual soft tissue calcifications are noted. Degenerative changes in the spine and hips. Surgical clips in the right lower quadrant. XR/XR abdomen 1V IMPRESSION: Nonobstructive bowel gas pattern. Dictated By: Fabian Tompkins MD Signed By: Electronically signed by Fabian Tompkins MD 05/04/23 1954 Radiology Impression Discussion of test interpretation with radiology: I have reviewed the radiologist's reading. Independent Historian Clinical information obtained from an independent historian. History obtained from or confirmed by: Other (patient's daughter provided additional history and confirmed the history provided by the patient. ) Prescription Management I considered prescription management with: Antibiotic (patient prescribed an antibiotic for her UTI.) Chronic Conditions Patient?s care impacted by: Hypertension Discharge Plan Discharge Clinical Impression: Hypertension, Constipation, Urinary tract infection Patient Disposition: Home, Self-Care Instructions: Constipation (DC), Urinary Tract Infection in Women (DC), Hypertension (ED) Additional Instructions: Follow up with your primary care provider. Return to the emergency department immediately if your symptoms worsen or if you develop any dizziness, shortness of breath, difficulty breathing, chest pain, blurry vision, loss of vision, nausea, vomiting, abdominal pain, fever, chills, back pain, or any other complaints. Prescriptions: New cefuroxime axetil 250 mg tablet 250 mg PO BID 7 Days Qty: 14 0RF No Action ferrous sulfate 325 mg (65 mg iron) Tablet 325 mg PO BID Qty: 60 10RF metoprolol succinate 50 mg tablet extended release 24 hr 1 tab PO DAILY amlodipine 5 mg tablet 1 tab PO DAILY glipizide 2.5 mg tablet extended release 24hr 1 tab PO QAM simvastatin 20 mg tablet 1 tab PO BEDTIME lisinopril 10 mg tablet 1 tab PO DAILY furosemide 20 mg tablet 1 tab PO DAILY estradiol 0.01 % (0.1 mg/gram) cream 1 g topical 2XW ferrous sulfate 325 mg (65 mg iron) Tablet 325 mg PO BID Qty: 60 3RF polyethylene glycol 3350 [Miralax] 17 gram/dose powder 17 g PO DAILY Qty: 238 0RF lactulose 10 gram/15 mL (15 mL) solution 20 g PO BID 2 Days Qty: 120 0RF polyethylene glycol 3350 [Miralax] 17 gram powder in packet 17 g PO DAILY Qty: 14 0RF cephalexin 500 mg capsule 500 mg PO Q8H 5 Days Qty: 15 0RF docusate sodium 100 mg capsule 100 mg PO BEDTIME Qty: 90 1RF Referrals: Coleen Amezcua MD [Primary Care Provider] - Interventions: ED Discharge Assessment Last Done: 05/04/23 22:51 Print Language: Faroese
[2023-05-04 20:21] VITALS: BP 196/97; PULSE 98; RESP 16; O2SAT 99
[2023-05-04 20:22] VITALS: BP 212/128; PULSE 62; O2SAT 99
[2023-05-04 21:01] VITALS: BP 178/75; PULSE 68; RESP 15; O2SAT 98
--- NOTE | 2023-05-04 21:05 | PC.NURSE ---
Pt A&O to self, Pt ambulated independently with steady gait. Pt reports having constipation today but having diarrhea while here, denies any ABD pain, N/V. Pt hypertensive, reports taking BP meds as prescribed, denies any CP, headache, or dizziness.
--- NOTE | 2023-05-04 21:46 | PC.NURSE ---
Spoke to daughter via telephone for discharge, daughter reports concern for UTI, seem more confused then usual, hx of UTIs . Provider Jen Taylor made aware, new order for UA.
--- NOTE | 2023-05-04 22:20 | PC.NURSE ---
Addendum entered by Yessy Silvestre 05/04/23 22:23: Urine sample collected and sent to lab. Original Note: PT bladder scanned 217 ml noted. pt straight cathed pt tolerated well, 200ml of clear yellow urine, drained.
[2023-05-04 22:29] LABS: Appearance Urine Clear; Color Urine Yellow; Glucose Urine UA >=1000 mg/dL (Negative); Leukocyte Esterase Urine Negative (Negative); Nitrite Urine Negative (Negative); UMIC TRIGGER UACC YES; Urine Blood Small (1+) (Negative); Urine Ketones Negative (Negative); Urine Protein 30 (1+) mg/dL (Neg-Trace)
[2023-05-04 22:48] LABS: Glucose, Whole Blood 254 mg/dL (60-115)
[2023-05-04 22:49] LABS: Bacteria Urine 1+ (None Seen); Hyaline Casts Urine 0-2 /LPF (0-2); RBC Urine >20 /HPF (0-2); Squamous Epithelial Cell Urine 0-2 /HPF (0-2); UACC Culture Trigger YES; WBC Urine 21-50 /HPF (0-5)
--- NOTE | 2023-05-04 22:54 | PC.NURSE ---
Daughter was called to schedule an uber ride for patient. Pt aware of plan.
[2023-05-04] MEDS: cefuroxime axetiL 500 MG TABLET PO (23:46)
== END 2023-05-05 00:13 | disposition home or self-care (01) ==
PROVIDERS: Physician Assistant Medical; Emergency Provider Emergency Medicine; PCP Internal Medicine
DX: K59.00 Constipation, unspecified (principal); R39.15 Urgency of urination; I10 Essential (primary) hypertension; Z79.899 Other long term (current) drug therapy
CPT/HCPCS: 51701; 74018; 81001; 82947; 87086; 99283; 99284

== ENCOUNTER 2023-05-14 12:43 | Emergency (ER) | payer MEDICARE, SELFPAY ==
[2023-05-14 12:52] VITALS: BP 162/59; BP 162/75; PULSE 75; PULSE 86; RESP 18; TEMP 36.6; O2SAT 100; O2SAT 96; BMI 25.6
--- NOTE | 2023-05-14 13:04 | ED_ITS ---
HPI - General Adult General Chief complaint: General Medical Stated complaint: CONSTIPATION X4 DAYS,UNABLE TO URINATE X2 DAYS Time Seen by Provider: 05/14/23 13:03 Source: patient Mode of arrival: EMS Limitations: no limitations History of Present Illness HPI narrative: 87-year-old female with a history of diabetes mellitus, hypertension, pulmonary embolism, respiratory distress, constipation, urinary tract infection who presents emergency department for evaluation constipation x4 days and difficulty urinating times 1-2 days. Patient states she normally moves her bowels daily. She does take MiraLax and a stool softener. She states that occasionally milk of magnesia but has run out of milk of magnesia. Patient states that over the last 2 days she has not been able to urinate, she denied frequency, urgency or dysuria. She states she just urinated prior to coming to the emergency department. She denied fever, chills, nausea, vomiting, diarrhea or abdominal pain. Patient had a similar presentation on 05/04/2023 (10 days prior to evaluation). That time she complained of constipation for 4 days and difficulty urinating. Patient had a bowel movement in the emergency department. Patient's urinalysis was positive in her urine culture grew Corynebacterium greater than 100,000 colony-forming units. Patient states she completed her course of antibiotics. Related Data Home Medications Medication Instructions Recorded Confirmed amlodipine 5 mg tablet 1 tab PO DAILY 05/20/20 01/22/23 estradiol 0.01% (0.1 mg/gram) 1 g topical 2XW 05/20/20 01/22/23 vaginal cream furosemide 20 mg tablet 1 tab PO DAILY 05/20/20 01/22/23 glipizide 2.5 mg tablet, extended 1 tab PO QAM 05/20/20 01/22/23 release 24 hr lisinopril 10 mg tablet 1 tab PO DAILY 05/20/20 01/22/23 metoprolol succinate 50 mg 1 tab PO DAILY 05/20/20 01/22/23 tablet,extended release 24 hr simvastatin 20 mg tablet 1 tab PO BEDTIME 05/20/20 01/22/23 Previous Rx's Medication Instructions Recorded polyethylene glycol 3350 17 17 g PO DAILY #238 grams 07/06/22 gram/dose oral powder (Miralax) lactulose 10 gram/15 mL (15 mL) 20 g (30 mL) PO BID 2 days #120 mL 09/14/22 oral solution ferrous sulfate 325 mg (65 mg 325 mg PO BID #60 tabs 12/19/22 iron) tablet polyethylene glycol 3350 17 gram 17 g PO DAILY #14 ea 12/26/22 oral powder packet (Miralax) cephalexin 500 mg capsule 500 mg PO Q8H 5 days #15 caps 01/20/23 docusate sodium 100 mg capsule 100 mg PO BEDTIME #90 caps 01/22/23 ferrous sulfate 325 mg (65 mg 325 mg PO BID #60 tabs 03/13/23 iron) tablet cefuroxime axetil 250 mg tablet 250 mg PO BID 7 days #14 tabs 05/04/23 cephalexin 500 mg capsule 500 mg PO TID 5 days #15 caps 05/14/23 Allergies Allergy/AdvReac Type Severity Reaction Status Date / Time No Known Allergies Allergy Verified 05/04/23 17:49 [No Known Allergies*] Review of Systems Review of Systems: Yes all other systems are reviewed and are negative [facility] Past Medical History [facility] Narrative: Social history: She states she is but her is currently at [facility] he has been there for 3 weeks. She denies tobacco use. She rarely drinks alcohol. She denies drug use. Medical History Pulmonary embolism Unsteady gait Arthritis Acute respiratory distress Hypoxemia HTN (hypertension) Type 2 diabetes mellitus Family History Family History Family/Other Diabetes Other No family history of cancer Social History Social History Household Members: Spouse Housing: House Are you a primary medicare contact specialist to a significant other at home: No Do you presently have visiting nurse or other home services: No Alcohol intake: never Patient Tobacco Use Status: Never used Tobacco Smoked in Last 30 Days: No Use of substances other than those prescribed or required for medical reasons: No Advance Directives: No Advance Directives Information Provided: Yes service: No Current occupational status: retired Physical Exam ED Vital Signs: Vital Signs - 24 hr 05/14/23 12:52 05/14/23 14:48 Temperature 97.8 F 98.1 F Pulse Rate 75 76 Respiratory Rate 18 14 Blood Pressure 162/59 H 167/89 H Pulse Oximetry 100 100 Oxygen Delivery Method Room Air Room Air BMI result Body Mass Index 25.6 Vital signs revealed an elevated blood pressure of 162/59 Exam General: Awake, alert in no distress Head: Normocephalic, atraumatic EENT: PERRL, Lids normal, sclera normal, conjunctiva normal, nose normal , ears normal, throat without erythema or exudates Neck: Supple, no adenopathy, no trachea midline or C-spine tenderness Lung: breath sounds symmetric, no wheezing, rales or rhonchi Chest: symmetric movement, nontender Heart: regular rate and rhythm, normal S1, S2 no murmurs or rubs Abdomen: soft, non-tender, nondistended, normal bowel sounds Rectal exam: Normal rectal tone, no stool impaction, stool was loose, brown and Hemoccult negative for blood Back: no vertebral tenderness, no CVAT Extremities: no deformities, moves all extremities symmetrically Neuro: Awake, alert, oriented, normal speech, cranial nerves intact, moves all extremities symmetrically Psych: Pleasant, cooperative Medical Decision Making Medical Decision Making MDM Narrative: 87-year-old female with a history of diabetes mellitus, hypertension, pulmonary embolism, respiratory distress, constipation, urinary tract infection who presents emergency department for evaluation constipation x4 days and difficulty urinating times 1-2 days. Patient had a similar presentation 05/11/2023 was found to have urinary tract infection. Patient states that she urinated prior to coming to the emergency department without any difficulty. She denied abdominal pain nausea, vomiting, fever or chills. Vital signs did reveal an elevated blood pressure otherwise unremarkable. Abdominal exam revealed no abdominal tenderness. Rectal exam revealed no impaction, she had loose brown stool which was Hemoccult negative. Following test was ordered on the patient: Urinalysis 14:58 My interpretation the patient's urinalysis/microscopic is as follows: 2+ protein, positive glucose, 3+ blood, 3+ leukocyte esterase, negative nitrates. Greater than 20 RBCs, greater than 50 WBCs, 10-20 squamous cells, 3+ bacteria. This is a contaminated specimen however patient had a similar urine on 05/04/2023 and did grow bacteria. Therefore I will treat the patient with Keflex 500 mg 3 times a day for 5 days, she was given her 1st dose here in the emergency department. Patient was advised to increase her fluid intake, continue taking her MiraLax and Colace. She was also advised to take milk of magnesia as directed, she has used this medication in the past for her constipation. She was given printed and verbal instructions discharged home. Differential Diagnosis Differential Diagnoses: The differential diagnosis associated with the presentation includes Differential diagnosis includes was not limited to bowel obstruction, constipation, stool impaction, urinary tract infection Admission/Observation Consideration of admission/observation: Escalation of care including admission/observation considered Lab Data [facility] Lab Attestation statement: I reviewed the patient's lab results. See [facility] above Labs: Lab Results 05/14/23 Range/Units 13:44 Urine Color Yellow Urine Appearance Turbid Urine pH 6.0 (5.0-9.0) Ur Specific [place] 1.020 (1.005-1.025) Urine Protein 100 (2+) H (Neg-Trace) mg/dL Urine Glucose (UA) >=1000 H (Negative) mg/dL Urine Ketones Negative (Negative) mg/dL Urine Blood Large (3+) H (Negative) Urine Nitrite Negative (Negative) Ur Leukocyte Esterase Large (3+) H (Negative) Urine RBC >20 H (0-2) /HPF Urine WBC >50 H (0-5) /HPF Ur Squamous Epith Cells 11-20 (0-2) /HPF Urine Bacteria 3+ (None Seen) Hyaline Casts 0-2 (0-2) /LPF External Record Review External record reviewed: Inpatient record (Microbiology urine cultures) Prescription Management I considered prescription management with: Antibiotic Chronic Conditions Patient?s care impacted by: Diabetes Discharge Plan Discharge Clinical Impression: Acute constipation Urinary tract infection Qualifiers: Urinary tract infection type: acute cystitis Patient Disposition: Home, Self-Care Instructions: Constipation (ED), Acute Urinary Retention in Women (ED) Additional Instructions: Continue taking your MiraLax and Colace for the constipation. If you do not have a good bowel movement every 3-4 days then take milk of magnesia as directed on the bottle. You should increase your fluid intake and that should help prevent constipation as well. Your urine may be consistent with a urinary tract infection, is very similar to her last urine specimen on 05/04/2023 when you did grow bacteria in your urine. Take Keflex (cephalexin) 500 mg pills, 1 pill 3 times a day for 5 days. Follow-up with your doctor in 2 days. Please return to the emergency department if your symptoms get worse or if you develop any symptoms that are concerning to you. Prescriptions: New cephalexin 500 mg capsule 500 mg PO TID 5 Days Qty: 15 0RF No Action ferrous sulfate 325 mg (65 mg iron) Tablet 325 mg PO BID Qty: 60 10RF metoprolol succinate 50 mg tablet extended release 24 hr 1 tab PO DAILY amlodipine 5 mg tablet 1 tab PO DAILY glipizide 2.5 mg tablet extended release 24hr 1 tab PO QAM simvastatin 20 mg tablet 1 tab PO BEDTIME lisinopril 10 mg tablet 1 tab PO DAILY furosemide 20 mg tablet 1 tab PO DAILY estradiol 0.01 % (0.1 mg/gram) cream 1 g topical 2XW ferrous sulfate 325 mg (65 mg iron) Tablet 325 mg PO BID Qty: 60 3RF polyethylene glycol 3350 [Miralax] 17 gram/dose powder 17 g PO DAILY Qty: 238 0RF lactulose 10 gram/15 mL (15 mL) solution 20 g PO BID 2 Days Qty: 120 0RF cefuroxime axetil 250 mg tablet 250 mg PO BID 7 Days Qty: 14 0RF polyethylene glycol 3350 [Miralax] 17 gram powder in packet 17 g PO DAILY Qty: 14 0RF cephalexin 500 mg capsule 500 mg PO Q8H 5 Days Qty: 15 0RF docusate sodium 100 mg capsule 100 mg PO BEDTIME Qty: 90 1RF
[2023-05-14 13:49] LABS: Appearance Urine Turbid; Color Urine Yellow; Glucose Urine UA >=1000 mg/dL (Negative); Leukocyte Esterase Urine Large (3+) (Negative); Nitrite Urine Negative (Negative); UMIC TRIGGER UACC YES; Urine Blood Large (3+) (Negative); Urine Ketones Negative (Negative); Urine Protein 100 (2+) mg/dL (Neg-Trace)
[2023-05-14 14:16] LABS: Bacteria Urine 3+ (None Seen); Hyaline Casts Urine 0-2 /LPF (0-2); RBC Urine >20 /HPF (0-2); UACC Culture Trigger YES; WBC Urine >50 /HPF (0-5)
[2023-05-14 14:48] VITALS: BP 167/89; PULSE 76; RESP 14; TEMP 36.7; O2SAT 100
[2023-05-14] MEDS: cephALEXin 500 MG CAPSULE PO (15:15)
== END 2023-05-14 16:16 | disposition home or self-care (01) ==
PROVIDERS: Emergency Provider Emergency Medicine Emergency Medical Services; PCP Internal Medicine
DX: K59.00 Constipation, unspecified (principal); N30.00 Acute cystitis without hematuria; R39.198 Other difficulties with micturition; I10 Essential (primary) hypertension; E11.9 Type 2 diabetes mellitus without complications
CPT/HCPCS: 81001; 87086; 99283; 99284

== ENCOUNTER 2023-06-04 14:48 | Inpatient (IN) | payer MEDICARE, SELFPAY ==
--- NOTE | ~2023-06-04 | XR_ITS ---
EXAMINATION: XR ABDOMEN COMPLETE CLINICAL INDICATION: Constipation COMPARISON: KUB 05/04/[address] abdomen pelvis 09/14/2022 TECHNIQUE: 2 views of the abdomen. FINDINGS: The bowel gas pattern is normal with no evidence of ileus or obstruction. A large stool burden is not present. No unusual soft tissue calcifications are noted. There are degenerative changes in the spine and scoliosis convex to left. Surgical clips are present in the right lower quadrant. Rounded rim calcified mass represents a subserosal exophytic calcified fibroid as better seen on the prior CT scan. XR/XR acute abdomen series IMPRESSION: No evidence of bowel obstruction.
--- NOTE | 2023-06-04 14:58 | ED_ITS ---
HPI - General Adult General Chief complaint: Abdominal Pain Stated complaint: hasn't voided all day Time Seen by Provider: 06/04/23 15:17 Source: patient Mode of arrival: ambulatory Limitations: other (poor historian ) History of Present Illness HPI narrative: 87-year-old female presents for evaluation of 2 days of constipation. She also states she has not urinated since last night. She denies medication changes. She reports finishing a course of antibiotics for a UTI a few days ago. She denies nausea and vomiting. No fevers, chills, or malaise. She reports intermittent lower abdominal cramping. No chest pain or shortness of breath. She denies a history of abdominal surgeries. She has not trialed any OTC stool softeners or laxatives at home. No back pain. No gait/coordination abnormalities. Related Data Home Medications Medication Instructions Recorded Confirmed amlodipine 5 mg tablet 1 tab PO DAILY 05/20/20 01/22/23 estradiol 0.01% (0.1 mg/gram) 1 g topical 2XW 05/20/20 01/22/23 vaginal cream furosemide 20 mg tablet 1 tab PO DAILY 05/20/20 01/22/23 glipizide 2.5 mg tablet, extended 1 tab PO QAM 05/20/20 01/22/23 release 24 hr lisinopril 10 mg tablet 1 tab PO DAILY 05/20/20 01/22/23 metoprolol succinate 50 mg 1 tab PO DAILY 05/20/20 01/22/23 tablet,extended release 24 hr simvastatin 20 mg tablet 1 tab PO BEDTIME 05/20/20 01/22/23 Previous Rx's Medication Instructions Recorded polyethylene glycol 3350 17 17 g PO DAILY #238 grams 07/06/22 gram/dose oral powder (Miralax) lactulose 10 gram/15 mL (15 mL) 20 g (30 mL) PO BID 2 days #120 mL 09/14/22 oral solution ferrous sulfate 325 mg (65 mg 325 mg PO BID #60 tabs 12/19/22 iron) tablet polyethylene glycol 3350 17 gram 17 g PO DAILY #14 ea 12/26/22 oral powder packet (Miralax) cephalexin 500 mg capsule 500 mg PO Q8H 5 days #15 caps 01/20/23 docusate sodium 100 mg capsule 100 mg PO BEDTIME #90 caps 01/22/23 ferrous sulfate 325 mg (65 mg 325 mg PO BID #60 tabs 03/13/23 iron) tablet cefuroxime axetil 250 mg tablet 250 mg PO BID 7 days #14 tabs 05/04/23 cephalexin 500 mg capsule 500 mg PO TID 5 days #15 caps 05/14/23 Allergies Allergy/AdvReac Type Severity Reaction Status Date / Time No Known Allergies Allergy Verified 06/04/23 14:58 [No Known Allergies*] Review of Systems 2 Review of Systems: Constitutional : No Weight loss, No Fever, No Chills, No Night Sweats, No Fatigue, No Malaise Eyes: No Eye Pain, No Swelling, No Redness, No Foreign Body, No Discharge, No Vision Changes Cardiovascular : No Chest Pain, No SOB, No Dyspnea on Exertion, No Orthopnea, No Edema, No Palpitations Respiratory : No Cough, No Sputum, No Wheezing, No Smoke Exposure, No Dyspnea Gastrointestinal : No Nausea, No Vomiting, No Diarrhea, + Constipation, + abdominal Pain, No Hematochezia, No Melena Genitourinary : no irregular bleeding, No Dysuria, No Urinary Frequency, No Hematuria, No Urinary Incontinence, No Urgency, No Flank Pain, +Urinary retention Musculoskeletal : No joint pain, No Myalgias, No Joint Swelling Skin : No Skin Lesions, No rash Neuro : No Weakness, No Numbness, No Paresthesias, No Loss of Consciousness, No Dizziness, No Headache Psych : No Anxiety/Panic, No Depression, No SI/HI/AH/VH, No Social Issues, Heme/Lymph: No Bruising, No Bleeding,No Lymphadenopathy Yes all other systems are reviewed and are negative [facility] Past Medical History Attestation statement: The following information was validated with the patient. Source: old records reviewed and nursing notes reviewed Medical History Pulmonary embolism Unsteady gait Arthritis Acute respiratory distress Hypoxemia HTN (hypertension) Type 2 diabetes mellitus Family History Family History Family/Other Diabetes Other No family history of cancer Social History Social History Household Members: Spouse Housing: House Are you a primary child caregiver to a significant other at home: No Do you presently have visiting nurse or other home services: No Alcohol intake: never Patient Tobacco Use Status: Never used Tobacco Smoked in Last 30 Days: No Use of substances other than those prescribed or required for medical reasons: No Advance Directives: No Advance Directives Information Provided: No service: No Current occupational status: retired Physical Exam ED Vital Signs: Vital Signs - 24 hr 06/04/23 14:59 06/04/23 18:11 Temperature 97 F Pulse Rate 78 72 Respiratory Rate 18 16 Blood Pressure 152/49 H 185/77 H Pulse Oximetry 100 98 Oxygen Delivery Method Room Air Room Air BMI result Body Mass Index 25.6 Appearance: Alert.? Oriented X3.? No acute distress.? Head: Normocephalic, atraumatic, no step-offs or deformities Eyes: Pupils equal, round and reactive to light.? Neck: Normal inspection.? Neck supple.? CVS: Normal heart rate and rhythm.? Pulses normal.? Respiratory: No respiratory distress.? Breath sounds normal.? Abdomen:?Normoactive bowel sounds heard in all 4 quadrants. Dullness heard in RUQ and LUQ with percussion. Flat bowel sounds heard with percussion of the LLQ and RLQ. Abdomen soft and nontender to palpation without guarding or rebound tenderness. Negative Downs's, Mcburney's, and Rosving's. Skin: Skin warm and dry.? Normal skin color.? Normal skin turgor.? Back: No midline tenderness, no C-spine tenderness, full range of motion, no CVA tenderness bilaterally Neuro: Oriented X 3.? No motor deficit.? No sensory deficit. CN 2-12 intact Course Course Course Narrative: RME performed by Shalini Taylor PA-C. Patient is a 87 year old assigned female at presenting to the emergency department with constipation and being unable to urinate. Labs and imaging ordered. Patient placed back in the waiting room pending room availability and results. Reevaluation(s) Reevaluation #1: CBC with no acute findings. Chemistry unremarkable. UA positive leukocyte esterases no bacteria however this is likely secondary to patient just finishing antibiotics a few days ago she is still symptomatic with urinary retention postvoid residual 150, still having urinary frequency, I did speak to family who came in both son and daughter report patient is having increased confusion, weakness and just is not acting herself she recently finished ceftin a few days ago ( patient forgot about this). Has been having frequent UTIs that do not seem to be improving. As patient has failed outpatient therapy patient will require IV antibiotics and is a candidate for hospital admission Time: 18:45 Medical Decision Making Medical Decision Making [facility] Narrative: 87-year-old female presents today for evaluation of 2 days of constipation and 1 day of urinary retention. She reports intermittent mild abdominal cramping. She denies nausea and vomiting. Physical exam: No tenderness to palpation. Abdomen is soft and nondistended. Flatness to percussion of the LLQ and RLQ. Negative Mcburney's, downs's, and rosving's. Likely constipation and urinary retention related to diet and polypharmacy, UTI; less likely large bowel obstruction, small bowel obstruction, acute abdomen, pancreatitis, diverticulitis, appendicitis, nephrolithiasis, pyelonephritis, MARIN. No signs of cord compression Plan: Bladder scan, UA, labs, abdominal x-ray Differential Diagnosis Differential Diagnoses: The differential diagnosis associated with the presentation includes Likely constipation and urinary retention related to diet and polypharmacy, UTI; less likely large bowel obstruction, small bowel obstruction, acute abdomen, pancreatitis, diverticulitis, appendicitis, nephrolithiasis, pyelonephritis, MARIN. . No signs of cord compression Admission/Observation Consideration of admission/observation: Escalation of care including admission/observation considered likely Consult Healthcare Provider Management of the patient was discussed with: Hospitalist Lab Data [facility] Lab Attestation statement: I reviewed the patient's lab results. 06/04/23 16:07 06/04/23 16:07 Labs: Lab Results 06/04/23 06/04/23 Range/Units 16:07 18:11 WBC 5.6 (4.8-10.8) X10*3/uL RBC 4.48 (4.20-5.50) X10*6/uL Hgb 13.8 (12.0-16.0) g/dl Hct 40.9 (37.0-47.0) % MCV 91.3 (80.0-98.0) fL MCH 30.8 (27.0-33.0) pg MCHC 33.7 (31.0-35.0) g/dl RDW 13.4 (11.0-16.0) % Plt Count 166 (160-400) X10*3/uL MPV 9.3 L (9.4-12.3) fL Immature Gran % (Auto) 0.2 (0.0-0.4) % Neut % (Auto) 70.7 (45-73) % Lymph % (Auto) 20.2 (20-40) % [place] % (Auto) 7.7 (2-11) % Eos % (Auto) 0.7 (0-4) % Baso % (Auto) 0.5 (0-2) % Lymph # (Auto) 1.1 L (1.2-4.9) X10*3/uL [place] # (Auto) 0.4 (0.1-1.2) X10*3/uL Eos # (Auto) 0.0 (0.0-0.4) X10*3/uL Baso # (Auto) 0.0 (0.0-0.2) X10*3/uL Abs Immat Gran (auto) 0.01 (0.00-0.03) X10*3/uL Absolute Neuts (auto) 4.0 (2.0-8.3) x10*3/uL Absolute Nucleated RBC 0.000 (0.0-0.012) X10*3/uL Nucleated RBC % (auto) 0.0 (0.0-0.2) /100WBC Sodium 140 (135-145) mmol/L Potassium 3.3 (3.3-5.1) mmol/L Chloride 112 H (96-108) mmol/L Carbon Dioxide 22 (22-29) mmol/L Anion Gap 9 L (12-20) BUN 16 (9-16) mg/dL Creatinine 1.09 (0.5-1.4) mg/dL Estim Creat Clear Calc 31.2 Estimated GFR 47 Random Glucose 132 H (60-115) mg/dL Calcium 9.0 (8.4-10.2) mg/dL Magnesium 2.0 (1.6-2.6) mg/dL Total Bilirubin 0.9 (0.0-1.0) mg/dL AST 16 (5-31) U/L ALT 10 (0-31) U/L Alkaline Phosphatase 67 (39-117) U/L Total Protein 6.8 (6.5-8.0) g/dL Albumin 3.6 (3.5-5.0) g/dL Urine Color Yellow Urine Appearance Cloudy Urine pH 6.0 (5.0-9.0) Ur Specific [place] 1.020 (1.005-1.025) Urine Protein 30 (1+) H (Neg-Trace) mg/dL Urine Glucose (UA) 500 H (Negative) mg/dL Urine Ketones Negative (Negative) mg/dL Urine Blood Large (3+) H (Negative) Urine Nitrite Negative (Negative) Ur Leukocyte Esterase Moderate (2+) H (Negative) Urine RBC 0-2 (0-2) /HPF Urine WBC >50 H (0-5) /HPF Ur Squamous Epith Cells 3-5 (0-2) /HPF Urine Bacteria None Seen (None Seen) Hyaline Casts 0-2 (0-2) /LPF Urine Yeast Present Independent Interpretation I performed an independent interpretation of an: Plain X-Ray (XR/XR acute abdomen series IMPRESSION: No evidence of bowel obstruction. ) Radiology Impression Discussion of test interpretation with radiology: I have reviewed the radiologist's reading. External Record Review External record reviewed: Inpatient record, Office record, Outpatient record, Prior outpatient labs, Prior outpatient radiology and Primary care record Tests considered The following testing was considered but not selected: No abdominal tenderness to palpation no indication for imaging Prescription Management I considered prescription management with: Antibiotic Critical Care Time Critical Care Time Critical Care Time: Yes Total Critical Care Time: 35 Attestation: I attest to this time spent taking care of the patient, obtaining history, physical, reviewing labs, imaging, speaking to my attending Discharge Plan Discharge Clinical Impression: Constipation, Acute UTI Patient Disposition: Admitted As Inpatient Prescriptions: No Action ferrous sulfate 325 mg (65 mg iron) Tablet 325 mg PO BID Qty: 60 10RF metoprolol succinate 50 mg tablet extended release 24 hr 1 tab PO DAILY amlodipine 5 mg tablet 1 tab PO DAILY glipizide 2.5 mg tablet extended release 24hr 1 tab PO QAM simvastatin 20 mg tablet 1 tab PO BEDTIME lisinopril 10 mg tablet 1 tab PO DAILY furosemide 20 mg tablet 1 tab PO DAILY estradiol 0.01 % (0.1 mg/gram) cream 1 g topical 2XW ferrous sulfate 325 mg (65 mg iron) Tablet 325 mg PO BID Qty: 60 3RF polyethylene glycol 3350 [Miralax] 17 gram/dose powder 17 g PO DAILY Qty: 238 0RF lactulose 10 gram/15 mL (15 mL) solution 20 g PO BID 2 Days Qty: 120 0RF cefuroxime axetil 250 mg tablet 250 mg PO BID 7 Days Qty: 14 0RF cephalexin 500 mg capsule 500 mg PO TID 5 Days Qty: 15 0RF polyethylene glycol 3350 [Miralax] 17 gram powder in packet 17 g PO DAILY Qty: 14 0RF cephalexin 500 mg capsule 500 mg PO Q8H 5 Days Qty: 15 0RF docusate sodium 100 mg capsule 100 mg PO BEDTIME Qty: 90 1RF
[2023-06-04 14:59] VITALS: BP 152/49; PULSE 78; RESP 18; TEMP 36.1; O2SAT 100; BMI 25.6
--- NOTE | 2023-06-04 16:08 | PC.NURSE ---
labs obtained/sent to lab. will obtain urine sample when able.
[2023-06-04 16:13] LABS: MANUAL DIFF FLAG NO
[2023-06-04 16:17] LABS: Basophils Percent Auto 0.5 % (0-2); Eosinophils Percent Auto 0.7 % (0-4); Hematocrit 40.9 % (37.0-47.0); Hemoglobin 13.8 g/dl (12.0-16.0); Imm Gran Abs Auto 0.01 X10*3/uL (0.00-0.03); Imm Gran Pct Auto 0.2 % (0.0-0.4); Lymphocytes Absolute Auto 1.1 X10*3/uL (1.2-4.9); Lymphocytes Percent Auto 20.2 % (20-40); Mean Corpuscular HGB Conc 33.7 g/dl (31.0-35.0); Mean Corpuscular Hemoglobin 30.8 pg (27.0-33.0); Mean Corpuscular Volume 91.3 fL (80.0-98.0); Mean Platelet Volume 9.3 fL (9.4-12.3); Monocytes Absolute Auto 0.4 X10*3/uL (0.1-1.2); Monocytes Percent Auto 7.7 % (2-11); Neutrophils Percent Auto 70.7 % (45-73); Platelet Count 166 X10*3/uL (160-400); Red Blood Count 4.48 X10*6/uL (4.20-5.50); Red Cell Distribution Width 13.4 % (11.0-16.0); White Blood Count 5.6 X10*3/uL (4.8-10.8)
[2023-06-04 16:31] LABS: Alanine Aminotransferase 10 U/L (0-31); Albumin Level 3.6 g/dL (3.5-5.0); Alkaline Phosphatase 67 U/L (39-117); Anion Gap 9 (12-20); Aspartate Amino Transferase 16 U/L (5-31); Bilirubin Total 0.9 mg/dL (0.0-1.0); Blood Urea Nitrogen 16 mg/dL (9-16); Carbon Dioxide 22 mmol/L (22-29); Chloride 112 mmol/L (96-108); Creatinine Clr Calc Pharmacy 31.2; Estimated Glomerular Filt Rate 47; Glucose Random 132 mg/dL (60-115); Potassium 3.3 mmol/L (3.3-5.1); Sodium 140 mmol/L (135-145); Total Protein 6.8 g/dL (6.5-8.0)
--- NOTE | 2023-06-04 17:47 | PC.NURSE ---
provider speaking w/ pt and pt's son at this time.
[2023-06-04 18:11] VITALS: BP 185/77; PULSE 72; RESP 16; O2SAT 98
--- NOTE | 2023-06-04 18:12 | PC.NURSE ---
vss and up to date. urine obtained/sent to lab.
[2023-06-04 18:20] LABS: Appearance Urine Cloudy; Color Urine Yellow; Glucose Urine UA 500 mg/dL (Negative); Leukocyte Esterase Urine Moderate (2+) (Negative); Nitrite Urine Negative (Negative); UMIC TRIGGER UACC YES; Urine Blood Large (3+) (Negative); Urine Ketones Negative (Negative); Urine Protein 30 (1+) mg/dL (Neg-Trace)
[2023-06-04 18:33] LABS: Bacteria Urine None Seen (None Seen); Hyaline Casts Urine 0-2 /LPF (0-2); RBC Urine 0-2 /HPF (0-2); UACC Culture Trigger YES; WBC Urine >50 /HPF (0-5)
[2023-06-04] MEDS: cefTRIAXone sodium 1 GM in 0.9 % Sodium Chloride 50 ML IV (19:10)
--- NOTE | 2023-06-04 19:19 | PM.IMHP ---
History of Present Illness Date of Service: 06/04/23 Attending physician on admission: Bryant Sherman Chief Complaint: Urinary retention 87-year-old female with history of insulin-dependent type 2 diabetes, hypertension, history of pulmonary embolism no longer on anticoagulation, hyperlipidemia, iron deficiency anemia, CKD stage 3 presents to the ED earlier today for evaluation of urinary retention. The patient reports that she had not urinated since last night. However, upon arrival to the ED reports she did urinate a large amount. She is also reporting dysuria and urgency. Denies any increased urinary frequency or hematuria. Does endorse bilateral lower abdominal pain. No fevers, chills, nausea, vomiting, diarrhea, constipation. In last month, she has also been treated for 2 UTIs with cefuroxime x5 days on 05/04 and then cephalexin x5 days on 05/14. She states her symptoms never fully resolved. The patient lives at home with her who is currently in the hospital at [facility]. She is able to fight id history but does appear to be somewhat confused at times. On arrival, patient is hypertensive to 185/77, vitals otherwise stable. There is no leukocytosis, hematology studies otherwise unremarkable. Renal function is baseline, electrolyte levels are normal. Urinalysis significant for 2+ leukocytes, 3+ blood, positive glucose, 1+ protein, positive urinary sediment, negative bacteria. Yeast noted in UA. X-ray of the abdomen negative for any evidence of obstruction and does not show large stool burden. In the ED, bladder scan revealed 125 mL urine, though patient continues to report bladder fullness. In the ED, has received and 1 L IV NS. Pt will be admitted for further management of acute UTI with acute metabolic encephalopathy having failed multiple rounds of outpatient oral antibiotics. Review of Systems Review of Systems: General: No fevers, malaise, unintentional weight loss Cardiovascular: No chest pain, palpitations, or leg edema Respiratory: No shortness of breath, wheezing, cough GI: +b/l lower abd pain. No nausea, vomiting, diarrhea, constipation : +dysuria, +urgency, +decreased urinary output. No hematuria, increased urinary frequency MSK: No myalgia Neuro: No headaches, weakness, paresthesias Skin: No rashes or lesions PMFSH Medical History Pulmonary embolism Unsteady gait Arthritis Acute respiratory distress Hypoxemia HTN (hypertension) Type 2 diabetes mellitus Family History Family/Other Diabetes Other No family history of cancer Social History Household Members: Spouse Housing: House Are you a primary memory care program director to a significant other at home: No Do you presently have visiting nurse or other home services: No Alcohol intake: never Patient Tobacco Use Status: Never used Tobacco Smoked in Last 30 Days: No Use of substances other than those prescribed or required for medical reasons: No Advance Directives: No Advance Directives Information Provided: No Nutrition Risks: No Nutritional Risk service: No Current occupational status: retired [employer] Allergies Allergy/AdvReac Type Severity Reaction Status Date / Time No Known Allergies Allergy Verified 06/04/23 14:58 [No Known Allergies*] Active Medications: Current Medications Sodium Chloride (Ns) 1,000 mls @ 999 mls/hr IV .Q1H1M STEPHANIE Stop: 06/04/23 19:45 Last Admin: 06/04/23 19:10 Dose: 999 mls/hr Home Medications Medication Instructions Recorded Confirmed Last Taken Type amlodipine 5 mg tablet 1 tab PO DAILY 05/20/20 06/04/23 Unknown History furosemide 20 mg tablet 1 tab PO DAILY 05/20/20 06/04/23 Unknown History lisinopril 10 mg tablet 1 tab PO DAILY 05/20/20 06/04/23 Unknown History metoprolol succinate 50 mg 1 tab PO DAILY 05/20/20 06/04/23 Unknown History tablet,extended release 24 hr aspirin 81 mg chewable tablet 1 tab PO DAILY 06/04/23 06/04/23 Unknown History atorvastatin 10 mg tablet 10 mg PO DAILY 06/04/23 06/04/23 Unknown History dapagliflozin propanediol 10 mg 10 mg PO DAILY 06/04/23 06/04/23 Unknown History tablet (Farxiga) insulin glargine 100 unit/mL (3 20 unit subcut BEDTIME 06/04/23 06/04/23 Unknown History mL) subcutaneous pen (Lantus Solostar U-100 Insulin) lactulose 10 gram/15 mL (15 mL) 20 g PO BID PRN Constipation 06/04/23 06/04/23 Unknown History oral solution sennosides 8.6 mg-docusate sodium 2 tab PO BEDTIME PRN Constipation 06/04/23 06/04/23 Unknown History 50 mg tablet (Senexon-S) Physical Exam Vital Signs and Narrative: Vital Signs: Last Vital Signs Temp 97 F 06/04/23 14:59 Pulse 72 06/04/23 18:11 Resp 16 06/04/23 18:11 BP 185/77 H 06/04/23 18:11 Pulse Ox 98 06/04/23 18:11 O2 Del Method Room Air 06/04/23 18:11 BMI result Body Mass Index 25.6 Constitutional - Awake and Alert, No apparent distress Eyes - PERRLA, EOMI Cardiovascular - S1S2, RRR, No edema Respiratory - Normal lung expansion, Normal respiratory effort, No respiratory distress, CTA bilaterally Gastrointestinal - NT / ND; +BS; No rebound or guarding - No CVA tenderness Extremities - no calf tenderness bilaterally, no swelling Skin - Warm/Dry Neurological - Alert & oriented to self, but disoriented to time and place though upon requestioning is able to tell me where she is, CN II-XII in tact Psychological - Appropriate affect Results Labs 06/04/23 16:07 06/04/23 16:07 Labs: Laboratory Results - last 24 hr 06/04/23 06/04/23 16:07 18:11 MCV 91.3 MCH 30.8 MCHC 33.7 RDW 13.4 Plt Count 166 MPV 9.3 L Immature Gran % (Auto) 0.2 Neut % (Auto) 70.7 Lymph % (Auto) 20.2 [place] % (Auto) 7.7 Eos % (Auto) 0.7 Baso % (Auto) 0.5 Lymph # (Auto) 1.1 L [place] # (Auto) 0.4 Eos # (Auto) 0.0 Baso # (Auto) 0.0 Abs Immat Gran (auto) 0.01 Absolute Neuts (auto) 4.0 Absolute Nucleated RBC 0.000 Nucleated RBC % (auto) 0.0 Anion Gap 9 L Estim Creat Clear Calc 31.2 Estimated GFR 47 Random Glucose 132 H Calcium 9.0 Magnesium 2.0 Total Bilirubin 0.9 AST 16 ALT 10 Alkaline Phosphatase 67 Total Protein 6.8 Albumin 3.6 Urine Color Yellow Urine Appearance Cloudy Urine pH 6.0 Ur Specific [place] 1.020 Urine Protein 30 (1+) H Urine Glucose (UA) 500 H Urine Ketones Negative Urine Blood Large (3+) H Urine Nitrite Negative Ur Leukocyte Esterase Moderate (2+) H Urine RBC 0-2 Urine WBC >50 H Ur Squamous Epith Cells 3-5 Urine Bacteria None Seen Hyaline Casts 0-2 Urine Yeast Present Imaging Radiologist's Impressions: Impressions Chest/Abdomen X-ray 06/04/23 15:32 IMPRESSION: No evidence of bowel obstruction. Assessment and Plan (1) Acute UTI: Status: Acute (2) Acute metabolic encephalopathy: Status: Acute Plan 87-year-old female with history of insulin-dependent type 2 diabetes, hypertension, history of pulmonary embolism no longer on anticoagulation, hyperlipidemia, iron deficiency anemia, CKD stage 3 admitted for UTI with acute metabolic encephalopathy having failed outpt therapy. #UTI with acute metabolic encephalopathy -No leukocytosis, SIRS. No sepsis -pt reports urinary retention. In ED, 125ml on bladder scan. Will repeat now -UA with 2+ leukocytes, 3+ blood, positive glucose, 1+ protein, positive urinary sediment, negative bacteria -IV ceftriaxone 1g (initiated 06/04) -follow CBC, cultures -monitor mentation #insulin-dependent type 2 diabetes- without hyperglycemia -POC glucose -diabetic diet -Humalog on sliding scale -hold oral antihyperglycemics # hypertension -blood pressure uncontrolled on admission at 185/77 -give amlodipine 5 mg now -continue amlodipine, furosemide, lisinopril, metoprolol # hyperlipidemia -continue statin # CKD stage 3 -renal function baseline #Chronic iron deficiency anemai -H/H baseline, normal -Continue ferrous sulfate DVT prophylaxis- lovenox Full code Pt requires inpatient stay at least 2 midnights for management of acute UTI with metabolic encephalopathy requiring IV antibiotics and close monitoring of mentation Quality Stroke Does the patient have a stroke diagnosis?: No VTE Prior VTE?: Yes VTE Risk Level:: Medical - moderate - high VTE Device Contraindication: Treatment Not Indicated VTE Drug Contraindication: N/A - Med Ordered
[2023-06-04] MEDS: 0.9 % Sodium Chloride 1,000 ML 999 ML IV (19:20)
[2023-06-04] MEDS: amLODIPine Besylate 5 MG TABLET PO (19:35)
--- NOTE | 2023-06-04 19:36 | PC.NURSE ---
medication administered per provider order.
[2023-06-04 19:40] LABS: Lactic Acid 1.1 mmol/L (0.5-2.0)
[2023-06-04 19:54] VITALS: BP 156/72; PULSE 72; RESP 18; TEMP 36.4; O2SAT 99
[2023-06-04] MEDS: Enoxaparin Sodium 40 MG/0.4 ML SYRINGE SUBCUT (19:55)
--- NOTE | 2023-06-04 19:55 | PC.NURSE ---
medication administered per provider order.
--- NOTE | 2023-06-04 20:00 | PHA.MEDREC ---
Pharmacy Consult ? Medication Reconciliation Pharmacy has completed the medication reconciliation with patient at bedside and son at home. Patient is unreliable historian and was able to recall a few of her medications, son had some contradicting information, went based off of medications at home and claims hx.
--- NOTE | 2023-06-04 20:28 | PC.NURSE ---
bladder scan = 125mls/hr post void residual - admitting provider aware.
[2023-06-04 22:51] LABS: Glucose, Whole Blood 143 mg/dL (60-115)
[2023-06-04] MEDS: Insulin Glargine,Hum.rec.anlog 100 UNIT/ML 10 ML VIAL 15 UNIT SUBCUT (22:55)
[2023-06-04] MEDS: Docusate Sodium 100 MG CAPSULE PO (22:56)
--- NOTE | 2023-06-04 23:23 | PC.NURSE ---
Report given to Marcella SHEEHAN pt exits my care at this time.
--- NOTE | 2023-06-05 05:27 | PC.NURSE ---
report given to Melody for assumption of care
[2023-06-05] MEDS: 0.9 % Sodium Chloride Flush 3 ML SYRINGE IVFLUSH ×4 (05:37→19:43)
[2023-06-05 05:49] LABS: MANUAL DIFF FLAG NO
[2023-06-05 05:55] LABS: Basophils Percent Auto 0.5 % (0-2); Eosinophils Absolute Auto 0.1 X10*3/uL (0.0-0.4); Eosinophils Percent Auto 1.1 % (0-4); Hematocrit 40.5 % (37.0-47.0); Hemoglobin 13.5 g/dl (12.0-16.0); Imm Gran Abs Auto 0.02 X10*3/uL (0.00-0.03); Imm Gran Pct Auto 0.3 % (0.0-0.4); Lymphocytes Absolute Auto 1.2 X10*3/uL (1.2-4.9); Lymphocytes Percent Auto 18.1 % (20-40); Mean Corpuscular HGB Conc 33.3 g/dl (31.0-35.0); Mean Corpuscular Hemoglobin 30.3 pg (27.0-33.0); Mean Corpuscular Volume 90.8 fL (80.0-98.0); Mean Platelet Volume 9.2 fL (9.4-12.3); Monocytes Absolute Auto 0.6 X10*3/uL (0.1-1.2); Monocytes Percent Auto 9.3 % (2-11); Neutrophils Absolute Auto 4.7 x10*3/uL (2.0-8.3); Neutrophils Percent Auto 70.7 % (45-73); Platelet Count 160 X10*3/uL (160-400); Red Blood Count 4.46 X10*6/uL (4.20-5.50); Red Cell Distribution Width 13.4 % (11.0-16.0); White Blood Count 6.6 X10*3/uL (4.8-10.8)
[2023-06-05 05:58] VITALS: BP 140/68; PULSE 75; RESP 15; TEMP 36.8; O2SAT 96
[2023-06-05 06:10] LABS: Anion Gap 8 (12-20); Blood Urea Nitrogen 11 mg/dL (9-16); Calcium 8.6 mg/dL (8.4-10.2); Carbon Dioxide 26 mmol/L (22-29); Chloride 109 mmol/L (96-108); Creatinine Clr Calc Pharmacy 39.5; Estimated Glomerular Filt Rate > 60; Glucose Random 74 mg/dL (60-115); Potassium 3.3 mmol/L (3.3-5.1); Sodium 140 mmol/L (135-145)
[2023-06-05 07:06] LABS: Glucose, Whole Blood 77 mg/dL (60-115)
--- NOTE | 2023-06-05 07:27 | PC.NURSE ---
patient sitting up in bed eating breakfast, respirations equal and unlabored, skin pwd. patient shows no signs of distress, call nowak within reach
[2023-06-05 08:20] VITALS: BP 136/70; PULSE 73; RESP 18; TEMP 36.9; O2SAT 99
[2023-06-05] MEDS: lisinopriL 10 MG TABLET PO ×2 (08:22→08:23)
[2023-06-05] MEDS: Ferrous Sulfate 324 MG TABLET.DR PO ×2 (08:22→21:41)
[2023-06-05] MEDS: Atorvastatin Calcium 10 MG TABLET PO (08:22)
[2023-06-05] MEDS: Aspirin 81 MG TAB.CHEW PO (08:22)
[2023-06-05] MEDS: Furosemide 20 MG TABLET PO (08:22)
[2023-06-05] MEDS: Metoprolol Succinate ER 50 MG TAB.ER.24H PO (08:22)
[2023-06-05] MEDS: amLODIPine Besylate 5 MG TABLET PO ×2 (08:22→08:23)
--- NOTE | 2023-06-05 08:41 | HO.PM.IMPN ---
Subjective Subjective Date of Service: 06/05/23 Interval History: pt seen and examined with son at bedside, she appears to be at her baseline mental status, no confusion, Physical Exam Vital Signs: Vital Signs: Last Vital Signs Temp 98.4 F 06/05/23 08:20 Pulse 73 06/05/23 08:20 Resp 18 06/05/23 08:20 BP 136/70 06/05/23 08:20 Pulse Ox 99 06/05/23 08:20 O2 Del Method Room Air 06/05/23 08:20 BMI result Body Mass Index 25.6 Const: Other: General: AO X 3, no acute distress Resp: CTA bilateral CVS: S1,S2,RRR GI: +BS, NT, no distention Skin: No rash Neuro: motor grossly intact Psych: appropriate affect Objective Data Active Medications Acetaminophen (Acetaminophen 325 Mg Tablet) 650 mg PO Q6H PRN PRN Reason: Pain, Mild (Pain Scale 1-3) Amlodipine Besylate (Amlodipine Besylate 5 Mg Tablet) 5 mg PO DAILY [facility]; Protocol Last Admin: 06/05/23 08:23 Dose: 5 mg Documented By: CARLA Aspirin (Aspirin 81 Mg Tab.Chew) 81 mg PO DAILY [facility] Last Admin: 06/05/23 08:22 Dose: 81 mg Documented By: CARLA Atorvastatin Calcium (Atorvastatin Calcium 10 Mg Tablet) 10 mg PO DAILY [facility] Last Admin: 06/05/23 08:22 Dose: 10 mg Documented By: CARLA Dextrose (Dextrose 50 % 25 Gm/50 Ml Syringe) 25 gm IVPUSH Q15M PRN; Protocol PRN Reason: per Hypoglycemia Standing Ord. Docusate Sodium (Docusate Sodium 100 Mg Capsule) 100 mg PO BEDTIME [facility] Last Admin: 06/04/23 22:56 Dose: 100 mg Documented By: DANO Enoxaparin Sodium (Enoxaparin Sodium 40 Mg/0.4 Ml Syringe) 40 mg SUBCUT Q24H [facility] Last Admin: 06/04/23 19:55 Dose: 40 mg Documented By: BRENT Ferrous Sulfate (Ferrous Sulfate 324 Mg Tablet.) 324 mg PO BID [facility] Last Admin: 06/05/23 08:22 Dose: 324 mg Documented By: CARLA Furosemide (Furosemide 20 Mg Tablet) 20 mg PO DAILY [facility]; Protocol Last Admin: 06/05/23 08:22 Dose: 20 mg Documented By: CARLA Glucose (Glucose Gel 15 Gm Gel..Gram.) 15 gm PO Q15M PRN; Protocol PRN Reason: per Hypoglycemia Standing Ord. Ceftriaxone Sodium 1 gm/ (Sodium Chloride) 50 mls @ 100 mls/hr IV Q24H [facility] Insulin Glargine (Insulin Glargine,Hum.Rec.Anlog 100 Unit/Ml 10 Ml Vial) 15 unit SUBCUT BEDTIME [facility] Last Admin: 06/04/23 22:55 Dose: 15 unit Documented By: DANO Insulin Human Lispro (Insulin Lispro 100 Unit/Ml 3 Ml Vial) 0 unit SUBCUT QIDACHS [facility]; Protocol Last Admin: 06/05/23 07:04 Dose: Not Given Documented By: CARLA Non-Admin Reason: No Insulin Coverage Lactulose (Lactulose 20 Gm/30 Ml Solution) 20 gm PO BID PRN PRN Reason: Constipation Lisinopril (Lisinopril 10 Mg Tablet) 10 mg PO DAILY [facility]; Protocol Last Admin: 06/05/23 08:23 Dose: 10 mg Documented By: CARLA Melatonin (Melatonin 3 Mg Tablet) 3 mg PO BEDTIME PRN PRN Reason: Insomnia Metoprolol Succinate (Metoprolol Succinate Er 50 Mg Tab.Er.24h) 50 mg PO DAILY [facility]; Protocol Last Admin: 06/05/23 08:22 Dose: 50 mg Documented By: CARLA Ondansetron HCl (Ondansetron Hcl 4 Mg/2 Ml Vial) 4 mg IVPUSH Q8H PRN PRN Reason: Nausea and Vomiting Senna (Sennosides 8.6 Mg Tablet) 17.2 mg PO BEDTIME PRN PRN Reason: Constipation Senna/Docusate Sodium (Sennosides/Docusate Sodium Tablet) 2 tab PO BEDTIME PRN PRN Reason: Constipation Sodium Chloride (0.9 % Sodium Chloride Flush 3 Ml Syringe) 3 ml IVFLUSH QSHIFT [facility] Last Admin: 06/05/23 08:21 Dose: 3 ml Documented By: CARLA Labs 06/05/23 05:29 06/05/23 05:29 Labs: Laboratory Results - last 24 hr 06/04/23 06/04/23 06/04/23 16:07 18:11 19:15 MCV 91.3 MCH 30.8 MCHC 33.7 RDW 13.4 Plt Count 166 MPV 9.3 L Immature Gran % (Auto) 0.2 Neut % (Auto) 70.7 Lymph % (Auto) 20.2 [place] % (Auto) 7.7 Eos % (Auto) 0.7 Baso % (Auto) 0.5 Lymph # (Auto) 1.1 L [place] # (Auto) 0.4 Eos # (Auto) 0.0 Baso # (Auto) 0.0 Abs Immat Gran (auto) 0.01 Absolute Neuts (auto) 4.0 Absolute Nucleated RBC 0.000 Nucleated RBC % (auto) 0.0 Anion Gap 9 L Estim Creat Clear Calc 31.2 Estimated GFR 47 POC Glucose Random Glucose 132 H Lactic Acid 1.1 Calcium 9.0 Magnesium 2.0 Total Bilirubin 0.9 AST 16 ALT 10 Alkaline Phosphatase 67 Total Protein 6.8 Albumin 3.6 Urine Color Yellow Urine Appearance Cloudy Urine pH 6.0 Ur Specific [place] 1.020 Urine Protein 30 (1+) H Urine Glucose (UA) 500 H Urine Ketones Negative Urine Blood Large (3+) H Urine Nitrite Negative Ur Leukocyte Esterase Moderate (2+) H Urine RBC 0-2 Urine WBC >50 H Ur Squamous Epith Cells 3-5 Urine Bacteria None Seen Hyaline Casts 0-2 Urine Yeast Present 06/04/23 06/05/23 06/05/23 22:47 05:29 07:00 MCV 90.8 MCH 30.3 MCHC 33.3 RDW 13.4 Plt Count 160 MPV 9.2 L Immature Gran % (Auto) 0.3 Neut % (Auto) 70.7 Lymph % (Auto) 18.1 L [place] % (Auto) 9.3 Eos % (Auto) 1.1 Baso % (Auto) 0.5 Lymph # (Auto) 1.2 [place] # (Auto) 0.6 Eos # (Auto) 0.1 Baso # (Auto) 0.0 Abs Immat Gran (auto) 0.02 Absolute Neuts (auto) 4.7 Absolute Nucleated RBC 0.000 Nucleated RBC % (auto) 0.0 Anion Gap 8 L Estim Creat Clear Calc 39.5 Estimated GFR > 60 POC Glucose 143 H 77 Random Glucose 74 Lactic Acid Calcium 8.6 Magnesium Total Bilirubin AST ALT Alkaline Phosphatase Total Protein Albumin Urine Color Urine Appearance Urine pH Ur Specific [place] Urine Protein Urine Glucose (UA) Urine Ketones Urine Blood Urine Nitrite Ur Leukocyte Esterase Urine RBC Urine WBC Ur Squamous Epith Cells Urine Bacteria Hyaline Casts Urine Yeast Microbiology Microbiology Results: Microbiology 06/04/23 18:11 Urine Culture - Preliminary Urine clean catch - Urine [place] top Culture too young to evaluate. Assessment and Plan (1) Acute metabolic encephalopathy: Status: Acute (2) Acute UTI: Status: Acute Plan 87-year-old female with history of insulin-dependent type 2 diabetes, hypertension, history of pulmonary embolism no longer on anticoagulation, hyperlipidemia, iron deficiency anemia, CKD stage 3 admitted for UTI with acute metabolic encephalopathy having failed outpt therapy. #UTI with acute metabolic encephalopathy, at baseline now. recent culture from last month showed Cornyrebacterium specieds, no sensitivity. Started on Ceftriaxone here, will change to ceftin at discharge. #insulin-dependent type 2 diabetes- without hyperglycemia -POC glucose -diabetic diet -Humalog on sliding scale -hold oral antihyperglycemics # hypertension, controlled, continue home meds - # hyperlipidemia -continue statin # CKD stage 3 -renal function baseline #Chronic iron deficiency anemai -H/H baseline, normal -Continue ferrous sulfate DVT prophylaxis- lovenox Full code need for inpt: uit + met encephalopathy being treated with IV Abx Quality Stroke Does the patient have a stroke diagnosis?: No VTE Prior VTE?: Yes VTE Risk Level:: Medical - moderate - high VTE Device Contraindication: Treatment Not Indicated VTE Drug Contraindication: N/A - Med Ordered
[2023-06-05 11:27] LABS: Glucose, Whole Blood 116 mg/dL (60-115)
[2023-06-05 11:34] VITALS: BP 131/63; PULSE 66; RESP 16; TEMP 2.2; TEMP 36; O2SAT 97
--- NOTE | 2023-06-05 12:16 | MHC.CM.PN ---
pt lives at home with her who is in rehab at this time they had no servceis she has her own ride home when dcd attempted to do a hcp but she does not have phone numbers or addresses of her sons dc plan home no servcies
[2023-06-05 15:04] VITALS: BP 146/70; PULSE 69; RESP 17; TEMP 36.4; O2SAT 100
--- NOTE | 2023-06-05 15:14 | MHC.CM.PN ---
met with pts son joss ricketts who staes theynhave a hcp and poa his sister rocco [phone] who is secondery she is a rn from [facility] he explainsnhis father is at [place] at this time he will bring in copies of poa and hcp
--- NOTE | 2023-06-05 15:44 | MHC.CM.PN ---
maryjane coreas number is [phone]
[2023-06-05] MEDS: Lactulose 20 GM/30 ML SOLUTION PO (15:49)
[2023-06-05 16:17] LABS: Glucose, Whole Blood 187 mg/dL (60-115)
[2023-06-05] MEDS: Insulin Lispro 100 UNIT/ML 3 ML VIAL SUBCUT ×2 (16:52→21:43)
[2023-06-05] MEDS: cefTRIAXone sodium 1 GM in 0.9 % Sodium Chloride 50 ML IV (18:28)
[2023-06-05 18:52] VITALS: BP 112/57; PULSE 75; RESP 17; TEMP 36.3; O2SAT 100
[2023-06-05 20:33] LABS: Glucose, Whole Blood 158 mg/dL (60-115)
[2023-06-05] MEDS: Docusate Sodium 100 MG CAPSULE PO (21:40)
[2023-06-05] MEDS: Enoxaparin Sodium 40 MG/0.4 ML SYRINGE SUBCUT (21:41)
[2023-06-05] MEDS: Melatonin 3 MG TABLET PO (21:41)
[2023-06-05] MEDS: Insulin Glargine,Hum.rec.anlog 100 UNIT/ML 10 ML VIAL 15 UNIT SUBCUT (21:43)
[2023-06-06 03:06] VITALS: BP 153/69; PULSE 54; RESP 16; TEMP 36.4; O2SAT 98
[2023-06-06 06:45] VITALS: BP 131/60; PULSE 62; RESP 18; TEMP 36.6; O2SAT 98
[2023-06-06 07:00] LABS: Glucose, Whole Blood 96 mg/dL (60-115)
[2023-06-06] MEDS: 0.9 % Sodium Chloride Flush 3 ML SYRINGE IVFLUSH (07:35)
[2023-06-06] MEDS: Metoprolol Succinate ER 50 MG TAB.ER.24H PO (07:36)
[2023-06-06] MEDS: lisinopriL 10 MG TABLET PO (07:36)
[2023-06-06] MEDS: Atorvastatin Calcium 10 MG TABLET PO (07:36)
[2023-06-06] MEDS: Sennosides/Docusate Sodium TABLET 2 TAB PO (07:36)
[2023-06-06] MEDS: Furosemide 20 MG TABLET PO (07:36)
[2023-06-06] MEDS: Aspirin 81 MG TAB.CHEW PO (07:36)
[2023-06-06] MEDS: amLODIPine Besylate 5 MG TABLET PO (07:37)
[2023-06-06] MEDS: Ferrous Sulfate 324 MG TABLET.DR PO (07:37)
[2023-06-06 11:14] LABS: Glucose, Whole Blood 206 mg/dL (60-115)
--- NOTE | 2023-06-06 11:33 | MHC.CM.PN ---
pt is being dcd today with no services pt recommending home with family support pt to be dcd today jason valiente notified of dc son here to transport pt when paperwork completed by
--- NOTE | 2023-06-06 11:43 | PM.DS ---
DS: Providers Provider Date of Service: 06/06/23 Date of admission: 06/04/23 19:12 Primary care physician: Coleen Amezcua MD DS: Diagnosis Discharge Diagnosis (1) Acute metabolic encephalopathy: Status: Acute (2) Acute UTI: Status: Acute DS: Summary Hospital Course Hospital Course: Chief Complaint: Urinary retention 87-year-old female with history of insulin-dependent type 2 diabetes, hypertension, history of pulmonary embolism no longer on anticoagulation, hyperlipidemia, iron deficiency anemia, CKD stage 3 presents to the ED earlier today for evaluation of urinary retention. The patient reports that she had not urinated since last night. However, upon arrival to the ED reports she did urinate a large amount. She is also reporting dysuria and urgency. Denies any increased urinary frequency or hematuria. Does endorse bilateral lower abdominal pain. No fevers, chills, nausea, vomiting, diarrhea, constipation. In last month, she has also been treated for 2 UTIs with cefuroxime x5 days on 05/04 and then cephalexin x5 days on 05/14. She states her symptoms never fully resolved. The patient lives at home with her who is currently in the hospital at [facility]. She is able to fight id history but does appear to be somewhat confused at times. On arrival, patient is hypertensive to 185/77, vitals otherwise stable. There is no leukocytosis, hematology studies otherwise unremarkable. Renal function is baseline, electrolyte levels are normal. Urinalysis significant for 2+ leukocytes, 3+ blood, positive glucose, 1+ protein, positive urinary sediment, negative bacteria. Yeast noted in UA. X-ray of the abdomen negative for any evidence of obstruction and does not show large stool burden. In the ED, bladder scan revealed 125 mL urine, though patient continues to report bladder fullness. In the ED, has received and 1 L IV NS. Pt will be admitted for further management of acute UTI with acute metabolic encephalopathy having failed multiple rounds of outpatient oral antibiotics. hospital course: Patient presented with urinary retention, confusion and found to have UTI. While in ED voided signficant amount and there has not been further issue with urinary retention, confusion/encephalopathy was attributed to uti and now appear to be back at her baseline, but definately has some underlying cognitive deficit. UTI has been treated with ceftriaxone and will change to Ceftin 250 mg twice daily x 5 more days for total of 7. Colace and Miralax are added for constipation which may have contributed to urinary retention. PT saw her and recommends home with family support. Time Attestation Discharge coordination time: Greater than 30 minutes Quality: Safe Use of Opioids Does Pt have an Active Cancer Diagnosis on the Problem List?: No Quality: Stroke Does the patient have a stroke diagnosis?: No Physical Exam Vital Signs: Vital Signs: Last Vital Signs Temp 98 F 06/06/23 06:45 Pulse 62 06/06/23 06:45 Resp 18 06/06/23 06:45 BP 131/60 06/06/23 06:45 Pulse Ox 98 06/06/23 06:45 O2 Del Method Room Air 06/06/23 06:45 BMI result Body Mass Index 25.6 DS: Data Data Completed and Pending Labs on day of discharge: Laboratory Results - last 24 hr 06/05/23 06/05/23 06/06/23 16:04 20:23 06:45 POC Glucose 187 H 158 H 96 06/06/23 11:10 POC Glucose 206 H Preliminary micro results at discharge 06/04/23 19:17 Blood Culture - Preliminary Blood - Venous No growth after 24 hours. 06/04/23 19:15 Blood Culture - Preliminary Blood - Venous No growth after 24 hours. Discharge Plan Discharge Anticipated Discharge Date/Time: 06/06/23 11:39 Patient Disposition: Home, Self-Care Discharge Diagnosis: UTI, encephalopathy, constipation Referrals: Coleen Amezcua MD [Primary Care Provider] - 1 Week Discharge Medications: New cefuroxime axetil 250 mg tablet 250 mg PO BID 5 Days Qty: 10 0RF docusate sodium [Colace] 100 mg capsule 100 mg PO BID Qty: 60 0RF Rx Instructions: OTC polyethylene glycol 3350 [Miralax] 17 gram/dose powder 17 g PO DAILY PRN (Reason: constipation) Qty: 238 0RF Continued metoprolol succinate 50 mg tablet extended release 24 hr 1 tab PO DAILY amlodipine 5 mg tablet 1 tab PO DAILY lisinopril 10 mg tablet 1 tab PO DAILY furosemide 20 mg tablet 1 tab PO DAILY ferrous sulfate 325 mg (65 mg iron) Tablet 325 mg PO BID Qty: 60 3RF atorvastatin 10 mg tablet 10 mg PO DAILY sennosides-docusate sodium [Senexon-S] 8.6-50 mg tablet 2 tab PO BEDTIME PRN (Reason: Constipation) aspirin 81 mg tablet,chewable 1 tab PO DAILY insulin glargine [Lantus Solostar U-100 Insulin] 100 unit/mL (3 mL) insulin pen 20 unit subcut BEDTIME Farxiga 10 mg tablet 10 mg PO DAILY lactulose 10 gram/15 mL (15 mL) solution 20 g PO BID PRN (Reason: Constipation) docusate sodium 100 mg capsule 100 mg PO BEDTIME Qty: 90 1RF Discharge Orders: Discharge Order (Routine); Ordered 06/06/23 Ordered By: Curly Fernandez Diet: Diabetic diet Activity on Discharge: As tolerated Stand Alone Forms: Patient Portal Discharge page Care Plan Goals: resolution of uti, regular bowel moement Health Concerns: chronic constiaption, uti Plan of Treatment: take cefuroxime as recommended to treat uti take colace, miralax for constipation Assessment: as above
[2023-06-06] MEDS: Insulin Lispro 100 UNIT/ML 3 ML VIAL SUBCUT (12:34)
== END 2023-06-06 14:15 | disposition home or self-care (01) | DRG 689 ==
LOC: HO.ED 18:49 → HO.EDOVER 19:51 → HO.S3 06-05 09:37
PROVIDERS: Internal Medicine; Physician Assistant; Physician Assistant Medical; Admitting Provider Physician Assistant; Emergency Provider Student in an Organized Health Care Education/Training Program; PCP Internal Medicine; Visit Provider Internal Medicine
DX: N39.0 Urinary tract infection, site not specified (principal); G93.41 Metabolic encephalopathy; I12.9 Hypertensive chronic kidney disease with stage 1 through stage 4 chronic kidney disease, or unspecified chronic kidney disease; R33.9 Retention of urine, unspecified; N18.30 Chronic kidney disease, stage 3 unspecified; K59.00 Constipation, unspecified; D63.1 Anemia in chronic kidney disease; E11.22 Type 2 diabetes mellitus with diabetic chronic kidney disease; D50.9 Iron deficiency anemia, unspecified; Z86.711 Personal history of pulmonary embolism; Z79.4 Long term (current) use of insulin; Z79.82 Long term (current) use of aspirin; Z79.899 Other long term (current) drug therapy
CPT/HCPCS: 36415; 74022; 80048; 80053; 81001; 82947; 83605; 83735; 85025; 87040; 87086; 97161; 99285; J0696; J1650

== ENCOUNTER → 2023-06-04 19:12 | Outpatient (BNV) | payer MEDICARE, SELFPAY | PROVIDERS: Admitting Provider Physician Assistant; Emergency Provider Student in an Organized Health Care Education/Training Program; PCP Internal Medicine; Visit Provider Physician Assistant | DX: G93.41 Metabolic encephalopathy (principal); N39.0 Urinary tract infection, site not specified | CPT/HCPCS: 99223; 99233; 99239 ==

== ENCOUNTER 2023-06-10 19:59 | Emergency (ER) | payer MEDICARE, SELFPAY ==
--- NOTE | ~2023-06-10 | CT_ITS ---
EXAMINATION: CT ABDOMEN AND PELVIS WITHOUT CONTRAST CLINICAL INFORMATION: void, constipation, poor appetite COMPARISON: CT abdomen pelvis September 14, 2022 TECHNIQUE: Multidetector volumetric imaging was performed from the superior aspect of the liver through the pubic symphysis. Sagittal and coronal reformatted images were obtained on the technologist's workstation. This CT examination was performed using dose optimization techniques as appropriate, variously including the following: *Automated exposure control *Adjustment of mA and/or kV according to patient size (this includes techniques or standardized protocols for targeted exams where dose is matched to indication/reason for exam; i.e. extremities or head) *Use of iterative reconstruction technique DLP: 107 mGy-cm FINDINGS: LUNG BASES: The visualized lung bases are unremarkable. LIVER, GALLBLADDER, AND BILIARY TREE: The liver is normal in size, shape, and attenuation. No focal hepatic lesion or biliary ductal dilatation is present. The gallbladder is unremarkable with no evidence of radiopaque gallstones, gallbladder wall thickening, or obvious pericholecystic inflammatory changes. PANCREAS: Unremarkable. SPLEEN: Unremarkable. ADRENAL GLANDS: Unremarkable. KIDNEYS AND URETERS: The kidneys are normal in size, shape, and attenuation. No hydronephrosis, hydroureter, or calculi seen. No perinephric stranding. There is stable multiple hyperdense and hypodense cysts in kidneys. No follow-up imaging recommended. BLADDER: Mild diffuse bladder wall thickening similar prior study. No surrounding inflammation. No mass or calculus. GASTROINTESTINAL TRACT: The small and large bowel are unremarkable. Moderate volume of stool in the colon. No evidence of constipation. The appendix is nonvisualized. Surgical clips in the right lower quadrant of the pelvis. Mesentery: No free air or free fluid. Peripherally calcified soft tissue nodule presacral space measuring 1.9 cm unchanged since prior studies. ABDOMINAL WALL: No significant hernia is appreciated. Subcutaneous soft tissue nodule containing coarse calcifications measuring 5 x 9 cm left gluteal region image 41/79 series 3 is chronic unchanged since prior studies. LYMPH NODES: Normal. VASCULAR: Vascular calcifications throughout the abdomen and pelvis. There is no aneurysm of the aorta. PELVIC VISCERA: Uterus is anteverted. Calcifications in the periphery of the myometrium. No adnexal abnormality. OSSEOUS STRUCTURES: Multilevel degenerative spondylosis spine. Levoscoliosis thoracolumbar spine. CT/CT abdomen pelvis wo IV con IMPRESSION: No acute abnormality CT scan abdomen pelvis. Fleischner guidelines were followed.
[2023-06-10 20:23] VITALS: BP 149/87; PULSE 80; RESP 20; TEMP 36.6; O2SAT 98; BMI 25.6
[2023-06-10 21:49] LABS: MANUAL DIFF FLAG NO
[2023-06-10 21:57] LABS: Basophils Percent Auto 0.5 % (0-2); Eosinophils Absolute Auto 0.1 X10*3/uL (0.0-0.4); Eosinophils Percent Auto 0.6 % (0-4); Hematocrit 39.3 % (37.0-47.0); Hemoglobin 13.5 g/dl (12.0-16.0); Imm Gran Abs Auto 0.02 X10*3/uL (0.00-0.03); Imm Gran Pct Auto 0.3 % (0.0-0.4); Lymphocytes Absolute Auto 1.4 X10*3/uL (1.2-4.9); Lymphocytes Percent Auto 18.3 % (20-40); Mean Corpuscular HGB Conc 34.4 g/dl (31.0-35.0); Mean Corpuscular Volume 90.3 fL (80.0-98.0); Mean Platelet Volume 9.3 fL (9.4-12.3); Monocytes Absolute Auto 0.6 X10*3/uL (0.1-1.2); Monocytes Percent Auto 7.1 % (2-11); Neutrophils Absolute Auto 5.7 x10*3/uL (2.0-8.3); Neutrophils Percent Auto 73.2 % (45-73); Platelet Count 148 X10*3/uL (160-400); Red Blood Count 4.35 X10*6/uL (4.20-5.50); Red Cell Distribution Width 13.4 % (11.0-16.0); White Blood Count 7.8 X10*3/uL (4.8-10.8)
--- NOTE | 2023-06-10 22:30 | ED_ITS ---
HPI - Female Genitourinary General Chief complaint: Urogenital-Female Stated complaint: unable to void Time Seen by Provider: 06/10/23 21:30 Source: patient and family Mode of arrival: ambulatory Limitations: no limitations History of Present Illness HPI Narrative: 87 yo female with PMH of UTI, constipation, HTN, DM, HLD, PE on no longer on DOAC who notes her is at [facility] inpatient right now for chest pain - she comes in with c/o having a hard time urinating and constipation today. She states she did not urinate or have BM all day today until she came to the ED and urinated x 2 and had a BM. Bladder scan was under 200. patient was just seen for the same thing and admitted for UTI and dc on ceftin 06/06 - admitted 06/04 to 06/06. MD elicited complaint: other (retention and constipation) Onset (ago): day(s) (1) Location of symptoms: suprapubic Severity: mild Quality of pain: other (no pain) Exacerbating factors: none Relieving factors: none Associated symptoms: denies other symptoms Related Data Home Medications Medication Instructions Recorded Confirmed amlodipine 5 mg tablet 1 tab PO DAILY 05/20/20 06/04/23 furosemide 20 mg tablet 1 tab PO DAILY 05/20/20 06/04/23 lisinopril 10 mg tablet 1 tab PO DAILY 05/20/20 06/04/23 metoprolol succinate 50 mg 1 tab PO DAILY 05/20/20 06/04/23 tablet,extended release 24 hr aspirin 81 mg chewable tablet 1 tab PO DAILY 06/04/23 06/04/23 atorvastatin 10 mg tablet 10 mg PO DAILY 06/04/23 06/04/23 dapagliflozin propanediol 10 mg 10 mg PO DAILY 06/04/23 06/04/23 tablet (Farxiga) insulin glargine 100 unit/mL (3 20 unit subcut BEDTIME 06/04/23 06/04/23 mL) subcutaneous pen (Lantus Solostar U-100 Insulin) lactulose 10 gram/15 mL (15 mL) 20 g PO BID PRN Constipation 06/04/23 06/04/23 oral solution sennosides 8.6 mg-docusate sodium 2 tab PO BEDTIME PRN Constipation 06/04/23 06/04/23 50 mg tablet (Senexon-S) Previous Rx's Medication Instructions Recorded ferrous sulfate 325 mg (65 mg 325 mg PO BID #60 tabs 12/19/22 iron) tablet docusate sodium 100 mg capsule 100 mg PO BEDTIME #90 caps 01/22/23 cefuroxime axetil 250 mg tablet 250 mg PO BID 5 days #10 tabs 06/06/23 docusate sodium 100 mg capsule 100 mg PO BID #60 caps 06/06/23 (Colace) polyethylene glycol 3350 17 17 g PO DAILY PRN constipation 06/06/23 gram/dose oral powder (Miralax) #238 grams Allergies Allergy/AdvReac Type Severity Reaction Status Date / Time No Known Allergies Allergy Verified 06/10/23 20:41 [No Known Allergies*] Review of Systems 2 Review of Systems: Constitutional : No Weight loss, No Fever, No Chills ENT/Mouth : No sore throat, No Rhinorrhea Eyes: No Swelling, No Redness Cardiovascular : No Chest Pain, No SOB, No Edema Respiratory : No Cough, No Sputum, No Wheezing Gastrointestinal : no Nausea, no Vomiting, no Diarrhea, no abdominal Pain, No Hematochezia, No Melena, pos constipation Genitourinary : No Dysuria, No Urinary Frequency, No Hematuria, No Urgency , pos retention Musculoskeletal : No joint pain, No Myalgias, No Joint Swelling Skin : No Skin Lesions, No rash Neuro : No Weakness, No Numbness, No Dizziness, No Headache Psych : No Anxiety/Panic, No Depression All other systems reviewed and are negative. COUNT INCLUDES THE [facility] Past Medical History Attestation statement: The following information was validated with the patient. Source: old records reviewed Medical History Pulmonary embolism Unsteady gait Arthritis Acute respiratory distress Hypoxemia HTN (hypertension) Type 2 diabetes mellitus Family History Family History Family/Other Diabetes Other No family history of cancer Social History Social History Household Members: Family Housing: House Are you a primary healthcare or medical to a significant other at home: No Do you presently have visiting nurse or other home services: No Alcohol intake: never Patient Tobacco Use Status: Never used Tobacco Advance Directives: No Advance Directives Information Provided: No service: No Current occupational status: retired Physical Exam 2 Vital Signs: Vital Signs: Last Vital Signs Temp 97.8 F 06/10/23 20:23 Pulse 80 06/10/23 20:23 Resp 20 06/10/23 20:23 BP 149/87 H 06/10/23 20:23 Pulse Ox 98 06/10/23 20:23 O2 Del Method Room Air 06/10/23 20:23 BMI result Body Mass Index 25.6 Appearance: Alert. Oriented X but slightly confused at times and forgetful. No acute distress. Eyes: Pupils equal, round and reactive to light. ENT: Pharynx normal. Neck: Normal inspection. Neck supple. CVS: Normal heart rate and rhythm. Pulses normal. Respiratory: No respiratory distress. Breath sounds normal. Abdomen: Soft and nontender. Skin: Skin warm and dry. Normal skin color. Normal skin turgor. Extremities: No lower extremity edema. No calf ttp Neuro: Oriented X 3. No motor deficit. No sensory deficit. Course Course Course Narrative: call to daughter Sharron [phone] who states she thinks her mom is taking the antibiotic - mom is confused and cannot remember anything. dad is in a SNF, suspect alzheimers but not formally diagnosed. aware we will keep her til the AM for PT/CM. at this time has been on ceftin already with urinary symptoms and just completed ceftriaxone though I am not sure she took the antibiotics will place on levofloxacin 250mg daily Reevaluation(s) Reevaluation #1: Patient placed in physician observation at 1156pm. The indication for observation is that the patient needs more time for PT/CM given concerns for safety and DC planning. At this time the patient is well developed well nourished, lungs clear, CV RRR, abd nontender, neuro is intact. Medical Decision Making Medical Decision Making MDM Narrative: 87 yo female with PMH of UTI, constipation, HTN, DM, HLD, PE no longer on DOAC here with c/o constipation and retention that have resolved on arrival - at this time will obtain UA, bladder scan less than 200, basic labs and CT scan for mass. Just seen for same and admitted treated for UTI and I presume she might not have completed her antibiotics. She is telling verbatim the same story as her last admission including her being at [facility]. The family did call RN and states that she needs PT/CM. There is no number for the son on the chart and he is the one who called. I'm not sure the patient even took the antibiotics as she just doesn't even Differential Diagnosis Differential Diagnoses: The differential diagnosis associated with the presentation includes constipation, mass, UTI Admission/Observation Consideration of admission/observation: Escalation of care including admission/observation considered observe for CM input Lab Data MDM Lab Attestation statement: I reviewed the patient's lab results. 06/10/23 21:46 06/10/23 21:46 Labs: Lab Results 06/10/23 06/10/23 Range/Units 21:46 23:20 WBC 7.8 (4.8-10.8) X10*3/uL RBC 4.35 (4.20-5.50) X10*6/uL Hgb 13.5 (12.0-16.0) g/dl Hct 39.3 (37.0-47.0) % MCV 90.3 (80.0-98.0) fL MCH 31.0 (27.0-33.0) pg MCHC 34.4 (31.0-35.0) g/dl RDW 13.4 (11.0-16.0) % Plt Count 148 L (160-400) X10*3/uL MPV 9.3 L (9.4-12.3) fL Immature Gran % (Auto) 0.3 (0.0-0.4) % Neut % (Auto) 73.2 H (45-73) % Lymph % (Auto) 18.3 L (20-40) % Kay % (Auto) 7.1 (2-11) % Eos % (Auto) 0.6 (0-4) % Baso % (Auto) 0.5 (0-2) % Lymph # (Auto) 1.4 (1.2-4.9) X10*3/uL Kay # (Auto) 0.6 (0.1-1.2) X10*3/uL Eos # (Auto) 0.1 (0.0-0.4) X10*3/uL Baso # (Auto) 0.0 (0.0-0.2) X10*3/uL Abs Immat Gran (auto) 0.02 (0.00-0.03) X10*3/uL Absolute Neuts (auto) 5.7 (2.0-8.3) x10*3/uL Absolute Nucleated RBC 0.000 (0.0-0.012) X10*3/uL Nucleated RBC % (auto) 0.0 (0.0-0.2) /100WBC Sodium 138 (135-145) mmol/L Potassium 4.0 D (3.3-5.1) mmol/L Chloride 105 (96-108) mmol/L Carbon Dioxide 21 L (22-29) mmol/L Anion Gap 16 (12-20) BUN 19 H (9-16) mg/dL Creatinine 0.89 (0.5-1.4) mg/dL Estim Creat Clear Calc 38.3 Estimated GFR 60 Random Glucose 232 H (60-115) mg/dL Calcium 9.1 (8.4-10.2) mg/dL Magnesium 2.2 (1.6-2.6) mg/dL Total Bilirubin 0.8 (0.0-1.0) mg/dL Direct Bilirubin 0.2 (0.0-0.5) mg/dL AST 20 (5-31) U/L ALT 18 (0-31) U/L Alkaline Phosphatase 73 (39-117) U/L Total Protein 6.8 (6.5-8.0) g/dL Albumin 3.5 (3.5-5.0) g/dL Lipase 33 (8-78) U/L Urine Color Yellow Urine Appearance Turbid Urine pH 6.0 (5.0-9.0) Ur Specific [place] 1.015 (1.005-1.025) Urine Protein 100 (2+) H (Neg-Trace) mg/dL Urine Glucose (UA) 500 H (Negative) mg/dL Urine Ketones Negative (Negative) mg/dL Urine Blood Moderate (2+) H (Negative) Urine Nitrite Negative (Negative) Ur Leukocyte Esterase Large (3+) H (Negative) Urine RBC 11-20 H (0-2) /HPF Urine WBC >50 H (0-5) /HPF Ur Squamous Epith Cells 3-5 (0-2) /HPF Urine Bacteria None Seen (None Seen) Hyaline Casts 0-2 (0-2) /LPF Urine Yeast Present Independent Interpretation I performed an independent interpretation of an: CT Scan (no acute findings) Radiology Impression Discussion of test interpretation with radiology: I have reviewed the radiologist's reading. External Record Review External record reviewed: Inpatient record Discharge Plan Discharge Clinical Impression: Acute UTI, Cognitive impairment Patient Disposition: Still a Patient Prescriptions: No Action metoprolol succinate 50 mg tablet extended release 24 hr 1 tab PO DAILY amlodipine 5 mg tablet 1 tab PO DAILY lisinopril 10 mg tablet 1 tab PO DAILY furosemide 20 mg tablet 1 tab PO DAILY ferrous sulfate 325 mg (65 mg iron) Tablet 325 mg PO BID Qty: 60 3RF atorvastatin 10 mg tablet 10 mg PO DAILY sennosides-docusate sodium [Senexon-S] 8.6-50 mg tablet 2 tab PO BEDTIME PRN (Reason: Constipation) aspirin 81 mg tablet,chewable 1 tab PO DAILY insulin glargine [Lantus Solostar U-100 Insulin] 100 unit/mL (3 mL) insulin pen 20 unit subcut BEDTIME Farxiga 10 mg tablet 10 mg PO DAILY lactulose 10 gram/15 mL (15 mL) solution 20 g PO BID PRN (Reason: Constipation) cefuroxime axetil 250 mg tablet 250 mg PO BID 5 Days Qty: 10 0RF docusate sodium [Colace] 100 mg capsule 100 mg PO BID Qty: 60 0RF Rx Instructions: OTC polyethylene glycol 3350 [Miralax] 17 gram/dose powder 17 g PO DAILY PRN (Reason: constipation) Qty: 238 0RF docusate sodium 100 mg capsule 100 mg PO BEDTIME Qty: 90 1RF
[2023-06-10 22:36] LABS: Alanine Aminotransferase 18 U/L (0-31); Albumin Level 3.5 g/dL (3.5-5.0); Alkaline Phosphatase 73 U/L (39-117); Anion Gap 16 (12-20); Aspartate Amino Transferase 20 U/L (5-31); Bilirubin Direct 0.2 mg/dL (0.0-0.5); Bilirubin Total 0.8 mg/dL (0.0-1.0); Blood Urea Nitrogen 19 mg/dL (9-16); Calcium 9.1 mg/dL (8.4-10.2); Carbon Dioxide 21 mmol/L (22-29); Chloride 105 mmol/L (96-108); Creatinine Clr Calc Pharmacy 38.3; Estimated Glomerular Filt Rate 60; Glucose Random 232 mg/dL (60-115); Lipase 33 U/L (8-78); Magnesium 2.2 mg/dL (1.6-2.6); Sodium 138 mmol/L (135-145); Total Protein 6.8 g/dL (6.5-8.0)
[2023-06-10 23:36] LABS: Appearance Urine Turbid; Color Urine Yellow; Glucose Urine UA 500 mg/dL (Negative); Leukocyte Esterase Urine Large (3+) (Negative); Nitrite Urine Negative (Negative); Specific Gravity - Urine 1.015 (1.005-1.025); UMIC TRIGGER UACC YES; Urine Blood Moderate (2+) (Negative); Urine Ketones Negative (Negative); Urine Protein 100 (2+) mg/dL (Neg-Trace)
[2023-06-10 23:51] LABS: Bacteria Urine None Seen (None Seen); Hyaline Casts Urine 0-2 /LPF (0-2); UACC Culture Trigger YES; WBC Urine >50 /HPF (0-5)
--- NOTE | 2023-06-11 | PC.NURSE ---
Pt A&O to self and place, states I'm here for weakness and I cant remember what else . Pt denies any pain. Ambulated independently with steady gait. Pt in and out of BR, reports inability to empty bladder with burning, bladder scan results 130 mL. Spoke to son (Brandon) who are requesting for Pt to stay in hospital to speak to case management for [facility] home services. Pt ambulated to BR four times in a time span of 3 hours, reports ability to urinate small amounts.
[2023-06-11] MEDS: levoFLOXacin 250 MG TABLET PO (01:38)
[2023-06-11 02:43] VITALS: BP 145/72; PULSE 87; RESP 16; O2SAT 97
--- NOTE | 2023-06-11 07:58 | PC.NURSE ---
Patient ambulatory to the bathroom with a steady gait.
[2023-06-11 09:12] VITALS: BP 171/89; PULSE 74; RESP 16; TEMP 36.6; O2SAT 99
--- NOTE | 2023-06-11 09:14 | PC.NURSE ---
VS updated. Pt made aware she is awaiting CM to determine if patient requires services. Awaiting patient's home medications to be verified by pharmay.
--- NOTE | 2023-06-11 09:39 | MHC.CM.PN ---
Addendum entered by Liz Carter RN 06/11/23 16:29: CM MET WITH PTS SON MO AT BEDSIDE HE REPORTS HE DOES HAVE CONCERNS ABOUT PT LIVING AT HOME, HOWEVER AT THIS TIME THEY DO NOT HAVE THE MONEY FOR SPENCER AND DO NOT WANT TO SEND HER TO A SNF HE SAYS FOR NOW THEY WOULD PREFER TO TRY HOME SERVICES PER DISCUSSION A REFERRAL WAS MADE TO [facility] PT WILL HAVE A PT EVAL AND THEN DC HOME TODAY WITH AFOREMENTIONED REFERRALS SON MO WILL TRANSPORT [phone] Original Note: CM RECEIVED A CALL FROM PTS SON WHO REPORTS THE PT WAS HERE FOR THE SAME THING A WEEK AGO AND WENT HOME WITH NO INTERVENTION OF AFTERCARE HE STATES WE CANNOT LET THIS HAPPEN AGAIN . HE REPORTS HE IS FLYING IN NOW AND SHOULD BE BEDSIDE BETWEEN 1400 AND 1500 HOURS TODAY TO ASSIST WITH TREATMENT/DC PLANNING CURRENTLY PT HAS A PT EVAL PENDING AND CM IS FOLLOWING FOR DISCHARGE NEEDS
[2023-06-11] MEDS: lisinopriL 5 MG TABLET PO (10:01)
[2023-06-11] MEDS: Metoprolol Succinate ER 50 MG TAB.ER.24H PO (10:01)
[2023-06-11] MEDS: Aspirin 81 MG TAB.CHEW PO (10:01)
[2023-06-11] MEDS: Milk of Magnesia 30 ML ORAL.SUSP PO (10:02)
--- NOTE | 2023-06-11 10:04 | PHA.MEDREC ---
Pharmacy Consult ? Medication Reconciliation Pharmacy has completed the medication reconciliation.
--- NOTE | 2023-06-11 10:30 | PC.NURSE ---
Report given to Jenn SHEEHAN in [facility].
--- NOTE | 2023-06-11 10:35 | PC.NURSE ---
Jardiance requested from pharmacy, not stored in [facility].
[2023-06-11] MEDS: Empagliflozin 10 MG TABLET PO (10:59)
[2023-06-11 11:14] VITALS: BP 188/76; PULSE 71; RESP 15; TEMP 36.9; O2SAT 96
--- NOTE | 2023-06-11 12:06 | PC.NURSE ---
assumed care of pt at 1115. pt a&o x4, pleasant, calm, and cooperative. pt able to ambulate independently to bathroom with steady gait, speaks in full complete sentences. pt ate lunch and tolerated well. is currently resting quietly in bed watching tv. rr even/unlabored. call nowak within reach. plan of care ongoing.
--- NOTE | 2023-06-11 14:23 | PC.NURSE ---
pt son here who flew in from [facility]. looking to speak with high risk case manager. sts this happened recently last week where he flew up for her due to the same reasons. sts pt is obsessed with going to the bathroom/not being able to. is wondering if she will need home care or to be placed in a facility due to increased forgetfulness. per son, pt's is at [facility].
[2023-06-11 14:28] VITALS: BP 151/78; PULSE 68; RESP 16; O2SAT 97
[2023-06-11 16:04] VITALS: BP 151/78; PULSE 68; O2SAT 97
--- NOTE | 2023-06-11 16:15 | MHC.CM.ED ---
NO P.T. EVALUATION AVAILABLE OF THIS NOTE. F2F UPLOADED TO NA WHO CAN SEE PATIENT WITHIN 48 HOURS.
[2023-06-11 16:39] LABS: Glucose, Whole Blood 186 mg/dL (60-115)
--- NOTE | 2023-06-11 18:20 | MHC.CM.ED ---
PT is recommending home PT and trial cane use. Provider and RN aware. Will d/c home. CM called sonJohn at [phone] with regards to PT evaluation and discharge home. [facility] services have been requested. F2F abd referrals placed. Son will stay with patient tonight.
--- NOTE | 2023-06-11 18:21 | ED_ITS ---
HPI - Female Genitourinary General Chief complaint: Urogenital-Female Stated complaint: unable to void Time Seen by Provider: 06/10/23 21:30 Source: patient and family Mode of arrival: ambulatory Limitations: no limitations History of Present Illness Severity: mild Exacerbating factors: none Relieving factors: none Related Data Home Medications Medication Instructions Recorded Confirmed lisinopril 10 mg tablet 0.5 tab PO DAILY 05/20/20 06/11/23 metoprolol succinate 50 mg 1 tab PO DAILY 05/20/20 06/11/23 tablet,extended release 24 hr aspirin 81 mg chewable tablet 1 tab PO DAILY 06/04/23 06/11/23 atorvastatin 10 mg tablet 10 mg PO DAILY 06/04/23 06/11/23 dapagliflozin propanediol 10 mg 10 mg PO DAILY 06/04/23 06/11/23 tablet (Farxiga) insulin glargine 100 unit/mL (3 20 unit subcut BEDTIME 06/04/23 06/11/23 mL) subcutaneous pen (Lantus Solostar U-100 Insulin) docusate sodium 100 mg capsule 100 mg PO BID 06/11/23 06/11/23 polyethylene glycol 3350 17 17 g PO DAILY PRN constipation 06/11/23 06/11/23 gram/dose oral powder (Gavilax) Previous Rx's Medication Instructions Recorded ferrous sulfate 325 mg (65 mg 325 mg PO BID #60 tabs 12/19/22 iron) tablet cefuroxime axetil 250 mg tablet 250 mg PO BID 5 days #10 tabs 06/06/23 levofloxacin 250 mg tablet 250 mg PO Q24H #5 tabs 06/11/23 Allergies Allergy/AdvReac Type Severity Reaction Status Date / Time No Known Allergies Allergy Verified 06/10/23 20:41 [No Known Allergies*] [facility] Past Medical History Medical History Pulmonary embolism Unsteady gait Arthritis Acute respiratory distress Hypoxemia HTN (hypertension) Type 2 diabetes mellitus Family History Family History Family/Other Diabetes Other No family history of cancer Social History Social History Household Members: Family Housing: House Are you a primary career development associate to a significant other at home: No Do you presently have visiting nurse or other home services: No Alcohol intake: never Patient Tobacco Use Status: Never used Tobacco Smoked in Last 30 Days: No Use of substances other than those prescribed or required for medical reasons: No Advance Directives: No Advance Directives Information Provided: No service: No Current occupational status: retired Physical Exam 2 Vital Signs: Vital Signs: Last Vital Signs Temp 98.4 F 06/11/23 11:14 Pulse 68 06/11/23 16:04 Resp 16 06/11/23 14:28 BP 151/78 H 06/11/23 16:04 Pulse Ox 97 06/11/23 16:04 O2 Del Method Room Air 06/11/23 14:28 BMI result Body Mass Index 25.6 Medications Administered Discontinued Medications Generic Name Dose Route Start Last Admin Trade Name Freq PRN Reason Stop Dose Admin Aspirin 81 mg 06/11/23 09:00 06/11/23 10:01 Aspirin 81 Mg Tab.Chew PO 81 mg DAILY STEPHANIE Administration Atorvastatin Calcium 10 mg 06/11/23 09:00 06/11/23 09:57 Atorvastatin Calcium 10 Mg Tablet PO Not Given DAILY STEPHANIE Empagliflozin 10 mg 06/12/23 09:00 06/11/23 10:59 Empagliflozin 10 Mg Tablet PO 10 mg DAILY STEPHANIE Administration Levofloxacin 250 mg 06/11/23 00:36 06/11/23 01:38 Levofloxacin 250 Mg Tablet PO 06/11/23 00:37 250 mg ONCE ONE Administration Lisinopril 5 mg 06/11/23 09:00 06/11/23 10:01 Lisinopril 5 Mg Tablet PO 5 mg DAILY STEPHANIE Administration Protocol Magnesium Hydroxide 30 ml 06/11/23 09:01 06/11/23 10:02 Milk Of Magnesia 30 Ml Oral.Susp PO 30 ml DAILY PRN Administration Constipation Metoprolol Succinate 50 mg 06/11/23 09:00 06/11/23 10:01 Metoprolol Succinate Er 50 Mg Tab.Er.24h PO 50 mg DAILY STEPHANIE Administration Protocol Medical Decision Making Lab Data 06/10/23 21:46 06/10/23 21:46 Labs: Lab Results 06/10/23 06/10/23 06/11/23 Range/Units 21:46 23:20 16:33 WBC 7.8 (4.8-10.8) X10*3/uL RBC 4.35 (4.20-5.50) X10*6/uL Hgb 13.5 (12.0-16.0) g/dl Hct 39.3 (37.0-47.0) % MCV 90.3 (80.0-98.0) fL MCH 31.0 (27.0-33.0) pg MCHC 34.4 (31.0-35.0) g/dl RDW 13.4 (11.0-16.0) % Plt Count 148 L (160-400) X10*3/uL MPV 9.3 L (9.4-12.3) fL Immature Gran % (Auto) 0.3 (0.0-0.4) % Neut % (Auto) 73.2 H (45-73) % Lymph % (Auto) 18.3 L (20-40) % [place] % (Auto) 7.1 (2-11) % Eos % (Auto) 0.6 (0-4) % Baso % (Auto) 0.5 (0-2) % Lymph # (Auto) 1.4 (1.2-4.9) X10*3/uL [place] # (Auto) 0.6 (0.1-1.2) X10*3/uL Eos # (Auto) 0.1 (0.0-0.4) X10*3/uL Baso # (Auto) 0.0 (0.0-0.2) X10*3/uL Abs Immat Gran (auto) 0.02 (0.00-0.03) X10*3/uL Absolute Neuts (auto) 5.7 (2.0-8.3) x10*3/uL Absolute Nucleated RBC 0.000 (0.0-0.012) X10*3/uL Nucleated RBC % (auto) 0.0 (0.0-0.2) /100WBC Sodium 138 (135-145) mmol/L Potassium 4.0 D (3.3-5.1) mmol/L Chloride 105 (96-108) mmol/L Carbon Dioxide 21 L (22-29) mmol/L Anion Gap 16 (12-20) BUN 19 H (9-16) mg/dL Creatinine 0.89 (0.5-1.4) mg/dL Estim Creat Clear Calc 38.3 Estimated GFR 60 POC Glucose 186 H (60-115) mg/dL Random Glucose 232 H (60-115) mg/dL Calcium 9.1 (8.4-10.2) mg/dL Magnesium 2.2 (1.6-2.6) mg/dL Total Bilirubin 0.8 (0.0-1.0) mg/dL Direct Bilirubin 0.2 (0.0-0.5) mg/dL AST 20 (5-31) U/L ALT 18 (0-31) U/L Alkaline Phosphatase 73 (39-117) U/L Total Protein 6.8 (6.5-8.0) g/dL Albumin 3.5 (3.5-5.0) g/dL Lipase 33 (8-78) U/L Urine Color Yellow Urine Appearance Turbid Urine pH 6.0 (5.0-9.0) Ur Specific [place] 1.015 (1.005-1.025) Urine Protein 100 (2+) H (Neg-Trace) mg/dL Urine Glucose (UA) 500 H (Negative) mg/dL Urine Ketones Negative (Negative) mg/dL Urine Blood Moderate (2+) H (Negative) Urine Nitrite Negative (Negative) Ur Leukocyte Esterase Large (3+) H (Negative) Urine RBC 11-20 H (0-2) /HPF Urine WBC >50 H (0-5) /HPF Ur Squamous Epith Cells 3-5 (0-2) /HPF Urine Bacteria None Seen (None Seen) Hyaline Casts 0-2 (0-2) /LPF Urine Yeast Present Discharge Plan Discharge Clinical Impression: Acute UTI, Cognitive impairment Patient Disposition: Home, Self-Care Instructions: Urinary Tract Infection in Women (ED) Additional Instructions: Take the Levaquin daily for the next 5 days. Take all of your other medications as prescribed Follow-up with your primary doctor Return for new or worsening symptoms Prescriptions: New levofloxacin 250 mg tablet 250 mg PO Q24H Qty: 5 0RF No Action metoprolol succinate 50 mg tablet extended release 24 hr 1 tab PO DAILY lisinopril 10 mg tablet 0.5 tab PO DAILY ferrous sulfate 325 mg (65 mg iron) Tablet 325 mg PO BID Qty: 60 3RF atorvastatin 10 mg tablet 10 mg PO DAILY aspirin 81 mg tablet,chewable 1 tab PO DAILY insulin glargine [Lantus Solostar U-100 Insulin] 100 unit/mL (3 mL) insulin pen 20 unit subcut BEDTIME Farxiga 10 mg tablet 10 mg PO DAILY cefuroxime axetil 250 mg tablet 250 mg PO BID 5 Days Qty: 10 0RF docusate sodium 100 mg capsule 100 mg PO BID polyethylene glycol 3350 [Gavilax] 17 gram/dose powder 17 g PO DAILY PRN (Reason: constipation) Referrals: [facility] [Other] [facility] [Outside] Interventions: ED Discharge Assessment Last Done: 06/11/23 20:16 Discharge Date/Time: 06/11/23 20:10
--- NOTE | 2023-06-11 18:49 | PC.NURSE ---
Assumed patient care at 1500- Patient alert and oriented x3, forgetful. Patient ambulating to bathroom independently, frequently voiding. Burning while urinating. Antibiotics to be given tonight. Physical therapy in to see patient. CM Plan for discharge. Awaiting for son for discharge.
== END 2023-06-11 20:10 | disposition home or self-care (01) ==
PROVIDERS: Emergency Provider Emergency Medicine; PCP Internal Medicine
DX: N39.0 Urinary tract infection, site not specified (principal); G31.84 Mild cognitive impairment of uncertain or unknown etiology; E11.9 Type 2 diabetes mellitus without complications; I10 Essential (primary) hypertension; Z86.711 Personal history of pulmonary embolism; Z79.4 Long term (current) use of insulin; Z79.899 Other long term (current) drug therapy
CPT/HCPCS: 36415; 51798; 74176; 80048; 80076; 81001; 82947; 83690; 83735; 85025; 87086; 87088; 97161; 99285

== ENCOUNTER 2023-06-19 19:06 | Emergency (ER) | payer MEDICARE, SELFPAY ==
[2023-06-19 19:31] VITALS: BP 159/77; PULSE 87; RESP 18; TEMP 36.7; O2SAT 96; BMI 23.4
--- NOTE | 2023-06-19 19:31 | ED.GENADULT ---
HPI - General Adult General Chief complaint: Urogenital-Female Stated complaint: Uti Time Seen by Provider: 06/19/23 20:46 Source: patient and RN notes reviewed Mode of arrival: ambulatory Limitations: no limitations History of Present Illness HPI narrative: 87-year-old female presents for evaluation of burning with urination. She only has lower abdominal/pelvic pain with urination. Denies any flank pain, fevers, chills. Her symptoms started mild couple of days ago and worsened today prompting her visit. Denies any vaginal bleeding or discharge Denies any nausea or vomiting Related Data Home Medications Medication Instructions Recorded Confirmed lisinopril 10 mg tablet 0.5 tab PO DAILY 05/20/20 06/11/23 metoprolol succinate 50 mg 1 tab PO DAILY 05/20/20 06/11/23 tablet,extended release 24 hr aspirin 81 mg chewable tablet 1 tab PO DAILY 06/04/23 06/11/23 atorvastatin 10 mg tablet 10 mg PO DAILY 06/04/23 06/11/23 dapagliflozin propanediol 10 mg 10 mg PO DAILY 06/04/23 06/11/23 tablet (Farxiga) insulin glargine 100 unit/mL (3 20 unit subcut BEDTIME 06/04/23 06/11/23 mL) subcutaneous pen (Lantus Solostar U-100 Insulin) docusate sodium 100 mg capsule 100 mg PO BID 06/11/23 06/11/23 polyethylene glycol 3350 17 17 g PO DAILY PRN constipation 06/11/23 06/11/23 gram/dose oral powder (Gavilax) Previous Rx's Medication Instructions Recorded ferrous sulfate 325 mg (65 mg 325 mg PO BID #60 tabs 12/19/22 iron) tablet cefuroxime axetil 250 mg tablet 250 mg PO BID 5 days #10 tabs 06/06/23 levofloxacin 250 mg tablet 250 mg PO Q24H #5 tabs 06/11/23 cefuroxime axetil 250 mg tablet 250 mg PO Q12H #10 tabs 06/19/23 phenazopyridine 200 mg tablet 200 mg PO TID PRN pain 6 doses #6 06/19/23 (Pyridium) tabs Allergies Allergy/AdvReac Type Severity Reaction Status Date / Time No Known Allergies Allergy Verified 06/10/23 20:41 [No Known Allergies*] Review of Systems Constitutional: Constitutional: Denies chills and Denies fever(s) Gastrointestinal: Gastrointestinal: Reports abdominal pain, Denies nausea and Denies vomiting Genitourinary: Genitourinary: Reports difficulty voiding and Reports dysuria PMFSH Past Medical History Medical History Pulmonary embolism Unsteady gait Arthritis Acute respiratory distress Hypoxemia HTN (hypertension) Type 2 diabetes mellitus Family History Family History Family/Other Diabetes Other No family history of cancer Social History Social History Household Members: Family Housing: House Are you a primary family day care provider to a significant other at home: No Do you presently have visiting nurse or other home services: No Alcohol intake: never Patient Tobacco Use Status: Never used Tobacco service: No Current occupational status: retired Physical Exam ED Vital Signs: Vital Signs - 24 hr 06/19/23 19:31 Temperature 98.0 F Pulse Rate 87 Respiratory Rate 18 Blood Pressure 159/77 H Pulse Oximetry 96 Oxygen Delivery Method Room Air BMI result Body Mass Index 23.4 Const General: healthy appearing, comfortable, no acute distress, alert and awake Nutritional Appearance: well nourished Orientation/consciousness: patient oriented x3 HENMT Head: Yes normocephalic and Yes atraumatic Eyes Eyelids: Yes eyelids normal Conjunctivae: conjunctivae normal Sclerae: sclerae normal Corneas: corneas normal Pupils: Equal, round and reactive pupils present EOM: EOMs intact bilaterally Neck Neck: Yes full ROM Resp Effort & Inspection: normal respiratory effort, able to speak in complete sentences and not labored GI Inspection: No distended Palpation (GI): Soft to palpation, not firm, nontender, no guarding and not rigid Skin General skin exam: elasticity normal Neuro General: patient oriented x3 Cranial nerves: Yes Equal, round and reactive pupils present and Yes Bilaterally intact EOM present Cognition (Neuro): normal cognition Extrem Other: Moving all extremities well without any obvious deformities Course Course Course Narrative: RME- 87 year old female presents for evaluation of burning with urination. Symptoms started a few days ago. Denies any flank pain, abdominal pain, fevers, chills. Plan for UA only Medical Decision Making Medical Decision Making MDM Narrative: 79-year-old female presents for evaluation of burning with urination. She denies any flank pain fevers, chills or systemic symptoms. Her urine appears to show acute infection, she will be treated with cefuroxime b.i.d. x5 days. Differential Diagnosis Differential Diagnoses: The differential diagnosis associated with the presentation includes UTI Cystitis Pyelonephritis Abdominal pain Dysuria Lab Data [facility] Lab Attestation statement: I reviewed the patient's lab results. UA appears to show acute infection Labs: Lab Results 06/19/23 Range/Units 19:43 Urine Color Yellow Urine Appearance Turbid Urine pH 6.0 (5.0-9.0) Ur Specific [place] >= 1.030 H (1.005-1.025) Urine Protein 100 (2+) H (Neg-Trace) mg/dL Urine Glucose (UA) >=1000 H (Negative) mg/dL Urine Ketones Negative (Negative) mg/dL Urine Blood Moderate (2+) H (Negative) Urine Nitrite Negative (Negative) Ur Leukocyte Esterase Moderate (2+) H (Negative) Urine RBC >20 H (0-2) /HPF Urine WBC >50 H (0-5) /HPF Ur Squamous Epith Cells 11-20 (0-2) /HPF Urine Bacteria 1+ (None Seen) Hyaline Casts 0-2 (0-2) /LPF Discharge Plan Discharge Clinical Impression: Acute UTI Patient Disposition: Home, Self-Care Instructions: Urinary Tract Infection in Women (ED) Additional Instructions: Your urine appears to show a urinary tract infection. Take cefuroxime twice daily for the next 5 days Take Pyridium as directed for discomfort This will turn your urine orange into you stop taking it Drink lots of fluids Follow-up with your primary doctor Prescriptions: New cefuroxime axetil 250 mg tablet 250 mg PO Q12H Qty: 10 0RF phenazopyridine [Pyridium] 200 mg tablet 200 mg PO TID PRN (Reason: pain) Qty: 6 0RF No Action metoprolol succinate 50 mg tablet extended release 24 hr 1 tab PO DAILY lisinopril 10 mg tablet 0.5 tab PO DAILY ferrous sulfate 325 mg (65 mg iron) Tablet 325 mg PO BID Qty: 60 3RF atorvastatin 10 mg tablet 10 mg PO DAILY aspirin 81 mg tablet,chewable 1 tab PO DAILY insulin glargine [Lantus Solostar U-100 Insulin] 100 unit/mL (3 mL) insulin pen 20 unit subcut BEDTIME Farxiga 10 mg tablet 10 mg PO DAILY cefuroxime axetil 250 mg tablet 250 mg PO BID 5 Days Qty: 10 0RF docusate sodium 100 mg capsule 100 mg PO BID polyethylene glycol 3350 [Gavilax] 17 gram/dose powder 17 g PO DAILY PRN (Reason: constipation) levofloxacin 250 mg tablet 250 mg PO Q24H Qty: 5 0RF
[2023-06-19 19:56] LABS: Appearance Urine Turbid; Color Urine Yellow; Glucose Urine UA >=1000 mg/dL (Negative); Leukocyte Esterase Urine Moderate (2+) (Negative); Nitrite Urine Negative (Negative); Specific Gravity - Urine >= 1.030 (1.005-1.025); UMIC TRIGGER UACC YES; Urine Blood Moderate (2+) (Negative); Urine Ketones Negative (Negative); Urine Protein 100 (2+) mg/dL (Neg-Trace)
[2023-06-19 20:06] LABS: Bacteria Urine 1+ (None Seen); Hyaline Casts Urine 0-2 /LPF (0-2); RBC Urine >20 /HPF (0-2); UACC Culture Trigger YES; WBC Urine >50 /HPF (0-5)
== END 2023-06-19 21:15 | disposition home or self-care (01) ==
LOC: HO.ED 21:02
PROVIDERS: Physician Assistant; Emergency Provider Internal Medicine; PCP Internal Medicine
DX: N39.0 Urinary tract infection, site not specified (principal); R10.2 Pelvic and perineal pain; Z79.899 Other long term (current) drug therapy
CPT/HCPCS: 81001; 87086; 99282; 99283

== ENCOUNTER 2023-07-06 12:29 | Emergency (ER) | payer MEDICARE, SELFPAY ==
[2023-07-06 13:15] VITALS: BP 173/72; PULSE 82; RESP 18; TEMP 36; O2SAT 100; BMI 23.0
--- NOTE | 2023-07-06 13:16 | ED.ABDPAIN ---
HPI - Abdominal Pain General Chief Complaint: Urogenital-Female Stated Complaint: Constipated Time Seen by Provider: 07/06/23 21:10 Source: patient Mode of arrival: ambulatory Limitations: no limitations History of Present Illness HPI narrative: 87 yo female with PMH of DM, HTN, HLD, UTI, PE on eliquis here with c/o dysuria, frequency starting today. No fevers, vomiting, has had harder time having BM x 2 but no nausea and passing gas. Has had UTI before. MD elicited complaint: abdominal pain (lower abdominal discomfort with urinary symptoms) Pertinent past history: past UTI Onset (ago): day(s) (1) Pain Consistency: intermittent Location: suprapubic Severity: mild Quality: aching Radiation: none Migration to: no migration Exacerbating factors: other (urination) Relieving factors: nothing Context: history of similar episodes Associated symptoms: constipation Related Data Home Medications Medication Instructions Recorded Confirmed lisinopril 10 mg tablet 0.5 tab PO DAILY 05/20/20 06/11/23 metoprolol succinate 50 mg 1 tab PO DAILY 05/20/20 06/11/23 tablet,extended release 24 hr aspirin 81 mg chewable tablet 1 tab PO DAILY 06/04/23 06/11/23 atorvastatin 10 mg tablet 10 mg PO DAILY 06/04/23 06/11/23 dapagliflozin propanediol 10 mg 10 mg PO DAILY 06/04/23 06/11/23 tablet (Farxiga) insulin glargine 100 unit/mL (3 20 unit subcut BEDTIME 06/04/23 06/11/23 mL) subcutaneous pen (Lantus Solostar U-100 Insulin) docusate sodium 100 mg capsule 100 mg PO BID 06/11/23 06/11/23 polyethylene glycol 3350 17 17 g PO DAILY PRN constipation 06/11/23 06/11/23 gram/dose oral powder (Gavilax) Previous Rx's Medication Instructions Recorded ferrous sulfate 325 mg (65 mg 325 mg PO BID #60 tabs 12/19/22 iron) tablet cefuroxime axetil 250 mg tablet 250 mg PO BID 5 days #10 tabs 06/06/23 levofloxacin 250 mg tablet 250 mg PO Q24H #5 tabs 06/11/23 cefuroxime axetil 250 mg tablet 250 mg PO Q12H #10 tabs 06/19/23 phenazopyridine 200 mg tablet 200 mg PO TID PRN pain 6 doses #6 06/19/23 (Pyridium) tabs cefuroxime axetil 250 mg tablet 250 mg PO BID 7 days #13 tabs 07/06/23 sennosides 8.6 mg capsule (senna) 8.6 mg PO BEDTIME PRN constipation 07/06/23 #30 caps Allergies Allergy/AdvReac Type Severity Reaction Status Date / Time No Known Allergies Allergy Verified 07/06/23 13:15 [No Known Allergies*] Review of Systems Review of Systems Constitutional : No Weight loss, No Fever, No Chills ENT/Mouth : No sore throat, No Rhinorrhea Eyes: No Swelling, No Redness Cardiovascular : No Chest Pain, No SOB, NoEdema Respiratory : No Cough, No Sputum, No Wheezing Gastrointestinal : no Nausea, no Vomiting, no Diarrhea, no abdominal Pain, No Hematochezia, No Melena, pos constipation Genitourinary : pos Dysuria, No Urinary Frequency, No Hematuria, No Urgency Musculoskeletal : No joint pain, No Myalgias, No Joint Swelling Skin : No Skin Lesions, No rash Neuro : No Weakness, No Numbness, No Dizziness, No Headache Psych : No Anxiety/Panic, No Depression All other systems reviewed and are negative. [facility] Past Medical History Attestation statement: The following information was validated with the patient. Source: old records reviewed Onset Date is defined in the Problem List Problems that require an onset date and time if occurred within 24 hrs of arrival to the ED Aortic Dissection and Rupture; Neurologic impairment; Cardiopulmonary Arrest; Endotracheal Intubation; Insertion or Replacement of Mechanical Circulatory Assist Device Medical History Pulmonary embolism Unsteady gait Arthritis Acute respiratory distress Hypoxemia HTN (hypertension) Type 2 diabetes mellitus Family History Family History Family/Other Diabetes Other No family history of cancer Social History Social History Household Members: Family Housing: House Are you a primary sub acute care nurse to a significant other at home: No Do you presently have visiting nurse or other home services: No Alcohol intake: never Patient Tobacco Use Status: Never used Tobacco Advance Directives: Yes Advance Directives on File: Yes Advance Directives Date on File: 06/07/23 service: No Current occupational status: retired Physical Exam ED Vital Signs: Vital Signs - 24 hr 07/06/23 13:15 07/06/23 22:00 Temperature 96.8 F Pulse Rate 82 77 Respiratory Rate 18 12 Blood Pressure 173/72 H 171/85 H Pulse Oximetry 100 100 Oxygen Delivery Method Room Air Room Air BMI result Body Mass Index 23.0 Appearance: Alert. Oriented X3. No acute distress. Eyes: Pupils equal, round and reactive to light. ENT: Pharynx normal. Neck: Normal inspection. Neck supple. CVS: Normal heart rate and rhythm. Pulses normal. Respiratory: No respiratory distress. Breath sounds normal. Abdomen: Soft and nontender. No CVA ttp Skin: Skin warm and dry. Normal skin color. Normal skin turgor. Extremities: No lower extremity edema. No calf ttp Neuro: Oriented X 3. No motor deficit. No sensory deficit. Course Course Course Narrative: RME: 87 yo F w/ PMHx PE presenting to the ED c/o constipation x2 days w/o passing flatus and urinary retention since last around 7PM. denies abdominal pain, N/V bladder scan 118ml in triage Labs, Bladder scan, CTAP ordered Full HPI, ROS and PE to be performed by primary ED provider. Medical Decision Making Medical Decision Making [facility] Narrative: 87 yo female with PMH of DM, HTN, HLD, UTI, PE on eliquis here with mild constipation but no n/v passing gas. She c/o urinary symptoms hx of E. Coli UTI responds to ceftin in past. She notes she has urinated x 2 since arrival in waiting room. She is not vomiting not having fevers. She will need labs, UA and CT scan review - no SBO seen. Differential Diagnosis Differential Diagnoses: The differential diagnosis associated with the presentation includes UTI, constipation Admission/Observation Consideration of admission/observation: Escalation of care including admission/observation considered labs stable, not toxic, tolerating PO Lab Data [facility] Lab Attestation statement: I reviewed the patient's lab results. 07/06/23 13:29 07/06/23 13:29 Labs: Lab Results 07/06/23 07/06/23 Range/Units 13:29 21:55 WBC 7.5 (4.8-10.8) X10*3/uL RBC 4.78 (4.20-5.50) X10*6/uL Hgb 14.6 (12.0-16.0) g/dl Hct 43.5 (37.0-47.0) % MCV 91.0 (80.0-98.0) fL MCH 30.5 (27.0-33.0) pg MCHC 33.6 (31.0-35.0) g/dl RDW 13.2 (11.0-16.0) % Plt Count 148 L (160-400) X10*3/uL MPV 9.0 L (9.4-12.3) fL Immature Gran % (Auto) 0.4 (0.0-0.4) % Neut % (Auto) 75.6 H (45-73) % Lymph % (Auto) 14.6 L (20-40) % [place] % (Auto) 8.3 (2-11) % Eos % (Auto) 0.7 (0-4) % Baso % (Auto) 0.4 (0-2) % Lymph # (Auto) 1.1 L (1.2-4.9) X10*3/uL [place] # (Auto) 0.6 (0.1-1.2) X10*3/uL Eos # (Auto) 0.1 (0.0-0.4) X10*3/uL Baso # (Auto) 0.0 (0.0-0.2) X10*3/uL Abs Immat Gran (auto) 0.03 (0.00-0.03) X10*3/uL Absolute Neuts (auto) 5.6 (2.0-8.3) x10*3/uL Absolute Nucleated RBC 0.000 (0.0-0.012) X10*3/uL Nucleated RBC % (auto) 0.0 (0.0-0.2) /100WBC Sodium 140 (135-145) mmol/L Potassium 3.6 (3.3-5.1) mmol/L Chloride 109 H (96-108) mmol/L Carbon Dioxide 24 (22-29) mmol/L Anion Gap 11 L (12-20) BUN 22 H (9-16) mg/dL Creatinine 0.99 (0.5-1.4) mg/dL Estim Creat Clear Calc 31.0 Estimated GFR 53 Random Glucose 134 H (60-115) mg/dL Calcium 9.3 (8.4-10.2) mg/dL Magnesium 2.1 (1.6-2.6) mg/dL Total Bilirubin 0.7 (0.0-1.0) mg/dL Direct Bilirubin 0.3 (0.0-0.5) mg/dL AST 18 (5-31) U/L ALT 14 (0-31) U/L Alkaline Phosphatase 72 (39-117) U/L Total Protein 7.1 (6.5-8.0) g/dL Albumin 3.7 (3.5-5.0) g/dL Lipase 19 (8-78) U/L Urine Color Yellow Urine Appearance Cloudy Urine pH 6.0 (5.0-9.0) Ur Specific [place] 1.020 (1.005-1.025) Urine Protein 100 (2+) H (Neg-Trace) mg/dL Urine Glucose (UA) >=1000 H (Negative) mg/dL Urine Ketones Trace (Negative) mg/dL Urine Blood Large (3+) H (Negative) Urine Nitrite Negative (Negative) Ur Leukocyte Esterase Small (1+) H (Negative) Urine RBC 3-5 H (0-2) /HPF Urine WBC 11-20 H (0-5) /HPF Ur Squamous Epith Cells 0-2 (0-2) /HPF Urine Bacteria 2+ (None Seen) Hyaline Casts 0-2 (0-2) /LPF Urine Yeast Present Independent Interpretation I performed an independent interpretation of an: CT Scan (constipation) Radiology Impression Discussion of test interpretation with radiology: I have reviewed the radiologist's reading. External Record Review External record reviewed: Inpatient record Prescription Management I considered prescription management with: Antibiotic Discharge Plan Discharge Clinical Impression: Acute UTI, Constipation Patient Disposition: Home, Self-Care Instructions: Constipation (ED), Urinary Tract Infection in Women (ED) Additional Instructions: take all antibiotic. return for fevers, vomiting, inability to eat or drink, pass gas or stool. Prescriptions: New cefuroxime axetil 250 mg tablet 250 mg PO BID 7 Days Qty: 13 0RF senna 8.6 mg capsule 8.6 mg PO BEDTIME PRN (Reason: constipation) Qty: 30 0RF No Action metoprolol succinate 50 mg tablet extended release 24 hr 1 tab PO DAILY lisinopril 10 mg tablet 0.5 tab PO DAILY ferrous sulfate 325 mg (65 mg iron) Tablet 325 mg PO BID Qty: 60 3RF cefuroxime axetil 250 mg tablet 250 mg PO Q12H Qty: 10 0RF phenazopyridine [Pyridium] 200 mg tablet 200 mg PO TID PRN (Reason: pain) Qty: 6 0RF atorvastatin 10 mg tablet 10 mg PO DAILY aspirin 81 mg tablet,chewable 1 tab PO DAILY insulin glargine [Lantus Solostar U-100 Insulin] 100 unit/mL (3 mL) insulin pen 20 unit subcut BEDTIME Farxiga 10 mg tablet 10 mg PO DAILY cefuroxime axetil 250 mg tablet 250 mg PO BID 5 Days Qty: 10 0RF docusate sodium 100 mg capsule 100 mg PO BID polyethylene glycol 3350 [Gavilax] 17 gram/dose powder 17 g PO DAILY PRN (Reason: constipation) levofloxacin 250 mg tablet 250 mg PO Q24H Qty: 5 0RF Interventions: ED Discharge Assessment Last Done: 07/06/23 23:29 Discharge Date/Time: 07/06/23 23:32
--- NOTE | 2023-07-06 21:44 | PC.NURSE ---
pt ambulatory with steady gait to bathroom. attempting to obtain ua at this time.
[2023-07-06 22:00] VITALS: BP 171/85; PULSE 77; RESP 12; O2SAT 100
--- NOTE | 2023-07-06 23:29 | PC.NURSE ---
this rn discharged pt, pt daughter at bedside.
== END 2023-07-06 23:32 | disposition home or self-care (01) ==
PROVIDERS: Emergency Provider Emergency Medicine; PCP Internal Medicine
DX: N39.0 Urinary tract infection, site not specified (principal); K59.00 Constipation, unspecified; E11.9 Type 2 diabetes mellitus without complications; R30.0 Dysuria; R35.0 Frequency of micturition; Z86.711 Personal history of pulmonary embolism; Z79.01 Long term (current) use of anticoagulants; Z79.899 Other long term (current) drug therapy
CPT/HCPCS: 36415; 51798; 74176; 80048; 80076; 81001; 81003; 83690; 83735; 85025; 87086; 99284

== ENCOUNTER 2023-07-18 14:56 | Outpatient (REF) | payer MEDICARE, SELFPAY ==
[2023-07-18 15:55] LABS: Estimated Average Glucose 169 mg/dL; Hemoglobin A1c % 7.5 % (<6.0)
[2023-07-18 16:35] LABS: Alanine Aminotransferase 16 U/L (0-31); Albumin Level 3.5 g/dL (3.5-5.0); Alkaline Phosphatase 70 U/L (39-117); Anion Gap 12 (12-20); Aspartate Amino Transferase 18 U/L (5-31); Bilirubin Total 0.9 mg/dL (0.0-1.0); Blood Urea Nitrogen 26 mg/dL (9-16); Calcium 9.2 mg/dL (8.4-10.2); Carbon Dioxide 24 mmol/L (22-29); Chloride 107 mmol/L (96-108); Estimated Glomerular Filt Rate 45; Glucose Random 272 mg/dL (60-115); Potassium 4.2 mmol/L (3.3-5.1); Sodium 139 mmol/L (135-145); Total Protein 6.8 g/dL (6.5-8.0)
== END 2023-07-18 14:57 | disposition home or self-care (01) ==
LOC: HO.LAB 14:56
PROVIDERS: PCP Internal Medicine; Visit Provider Internal Medicine
DX: E11.65 Type 2 diabetes mellitus with hyperglycemia (principal); E78.00 Pure hypercholesterolemia, unspecified; I10 Essential (primary) hypertension
CPT/HCPCS: 36415; 80053; 83036

== ENCOUNTER 2023-08-01 22:06 | Emergency (ER) | payer MEDICARE, SELFPAY ==
[2023-08-01 22:31] VITALS: BP 177/92; PULSE 84; RESP 14; TEMP 36.6; O2SAT 97; BMI 26.4
[2023-08-01 22:56] LABS: Basophils Percent Auto 0.5 % (0-2); Eosinophils Absolute Auto 0.1 X10*3/uL (0.0-0.4); Hematocrit 43.9 % (37.0-47.0); MANUAL DIFF FLAG NO; PLT CLUMP 1; Red Cell Distribution Width 12.9 % (11.0-16.0); SCAN SMEAR FLAG 1
[2023-08-01 22:58] LABS: Eosinophils Percent Auto 1.2 % (0-4); Hemoglobin 14.3 g/dl (12.0-16.0); Imm Gran Abs Auto 0.02 X10*3/uL (0.00-0.03); Imm Gran Pct Auto 0.3 % (0.0-0.4); Lymphocytes Absolute Auto 1.5 X10*3/uL (1.2-4.9); Lymphocytes Percent Auto 22.6 % (20-40); Mean Corpuscular HGB Conc 32.6 g/dl (31.0-35.0); Monocytes Absolute Auto 0.6 X10*3/uL (0.1-1.2); Monocytes Percent Auto 8.7 % (2-11); Neutrophils Absolute Auto 4.3 x10*3/uL (2.0-8.3); Neutrophils Percent Auto 66.7 % (45-73); Red Blood Count 4.77 X10*6/uL (4.20-5.50)
[2023-08-01 23:02] LABS: Platelet Count 146 X10*3/uL (160-400); White Blood Count 6.4 X10*3/uL (4.8-10.8)
[2023-08-01 23:09] LABS: Alanine Aminotransferase 16 U/L (0-31); Albumin Level 3.6 g/dL (3.5-5.0); Alkaline Phosphatase 84 U/L (39-117); Anion Gap 11 (12-20); Aspartate Amino Transferase 17 U/L (5-31); Bilirubin Total 0.7 mg/dL (0.0-1.0); Blood Urea Nitrogen 18 mg/dL (9-16); Calcium 9.5 mg/dL (8.4-10.2); Carbon Dioxide 25 mmol/L (22-29); Chloride 108 mmol/L (96-108); Creatinine Clr Calc Pharmacy 29.8; Estimated Glomerular Filt Rate 46; Glucose Random 237 mg/dL (60-115); Potassium 4.3 mmol/L (3.3-5.1); Sodium 140 mmol/L (135-145); Total Protein 6.8 g/dL (6.5-8.0)
--- NOTE | 2023-08-02 01:29 | PC.NURSE ---
per ed registration pt and pt brother LWT witnessed by registration staff
== END 2023-08-02 01:45 | disposition left against medical advice (07) ==
PROVIDERS: Emergency Provider Emergency Medicine
DX: R33.9 Retention of urine, unspecified (principal)
CPT/HCPCS: 36415; 51798; 80053; 85025; 99283

== ENCOUNTER 2023-08-08 09:26 | Emergency (ER) | payer MEDICARE, SELFPAY ==
--- NOTE | ~2023-08-08 | CT_ITS ---
EXAMINATION: CT ABDOMEN AND PELVIS WITHOUT CONTRAST CLINICAL INFORMATION: Abdominal pain and constipation COMPARISON: CT abdomen pelvis 07/06/2023 and 06/10/2023 TECHNIQUE: Multidetector volumetric imaging was performed from the superior aspect of the liver through the pubic symphysis. Sagittal and coronal reformatted images were obtained on the technologist's workstation. This CT examination was performed using dose optimization techniques as appropriate, variously including the following: *Automated exposure control *Adjustment of mA and/or kV according to patient size (this includes techniques or standardized protocols for targeted exams where dose is matched to indication/reason for exam; i.e. extremities or head) *Use of iterative reconstruction technique DLP: 359 mGy-cm FINDINGS: LUNG BASES: The visualized lung bases are unremarkable. A small hiatal hernia is noted. LIVER, GALLBLADDER, AND BILIARY TREE: The liver is normal in size, shape, and attenuation. No focal hepatic lesion or biliary ductal dilatation is present. The gallbladder is unremarkable with no evidence of radiopaque gallstones, gallbladder wall thickening, or obvious pericholecystic inflammatory changes. PANCREAS: Unremarkable. SPLEEN: Unremarkable. ADRENAL GLANDS: Unremarkable. KIDNEYS AND URETERS: The kidneys are normal in size, shape, and attenuation. There is a 2 mm radiopaque calculi midpole cortex right kidney No perinephric stranding. Again visualized a 1.6 cm and 6 mm hypodense lesions in the midpole right kidney. There is a simple 3.3 cm exophytic cyst lower pole right kidney. There is 1.8 cm midpole and 2.6 cm lower pole simple cyst left kidney. BLADDER: There is diffuse posterior bladder wall thickening GASTROINTESTINAL TRACT: There is scattered stool and gas seen throughout the colon without significant distention. The small bowel loops are normal caliber. The stomach is nondistended. Appendix is not visualized however there are surgical dirk in the right lower quadrant presumed from previous appendectomy. ABDOMINAL WALL: There is no evidence of hernia. There is a large soft tissue mass in the left lateral abdominal wall containing coarse wall calcification and measuring cyst density within. It measured 8.9 cm in a craniocaudad length and is stable since 06/10/2023 and before that. LYMPH NODES: Normal. VASCULAR: Unremarkable. PELVIC VISCERA: The uterus is anteverted. There is a 2.4 cm round calcified density posterior to fundal uterus, stable. No free fluid OSSEOUS STRUCTURES: Diffuse osteopenia. There is moderate bilateral facet joint arthropathy L5-S1, L4-L5 and L3-L4 disc levels. No aggressive lytic or sclerotic process seen. CT/CT abdomen pelvis wo IV con IMPRESSION: 1. Mild constipation. No acute process seen. 2. Bilateral renal cysts and bilateral renal calculi are stable. 3. Large soft tissue mass left lateral abdominal wall is stable. 4. Calcified density posterior to the fundal uterus is stable. 5. Small hiatal hernia. 6. Diffuse osteopenia with degenerative disc changes and facet joint arthropathy in the lower lumbar spine. Fleischner guidelines were followed.
[2023-08-08 10:24] VITALS: BP 172/89; PULSE 72; RESP 18; TEMP 36.8; O2SAT 96; BMI 23.6
[2023-08-08 10:59] LABS: MANUAL DIFF FLAG NO
[2023-08-08 11:02] LABS: Basophils Percent Auto 0.3 % (0-2); Eosinophils Absolute Auto 0.1 X10*3/uL (0.0-0.4); Eosinophils Percent Auto 1.3 % (0-4); Hematocrit 44.8 % (37.0-47.0); Hemoglobin 15.2 g/dl (12.0-16.0); Imm Gran Abs Auto 0.02 X10*3/uL (0.00-0.03); Imm Gran Pct Auto 0.3 % (0.0-0.4); Lymphocytes Percent Auto 16.5 % (20-40); Mean Corpuscular HGB Conc 33.9 g/dl (31.0-35.0); Mean Corpuscular Volume 91.2 fL (80.0-98.0); Mean Platelet Volume 9.2 fL (9.4-12.3); Monocytes Absolute Auto 0.5 X10*3/uL (0.1-1.2); Monocytes Percent Auto 7.6 % (2-11); Neutrophils Absolute Auto 4.7 x10*3/uL (2.0-8.3); Platelet Count 137 X10*3/uL (160-400); Red Blood Count 4.91 X10*6/uL (4.20-5.50); Red Cell Distribution Width 12.8 % (11.0-16.0); White Blood Count 6.3 X10*3/uL (4.8-10.8)
[2023-08-08 11:14] LABS: Anion Gap 11 (12-20); Blood Urea Nitrogen 23 mg/dL (9-16); Carbon Dioxide 27 mmol/L (22-29); Chloride 107 mmol/L (96-108); Creatinine Clr Calc Pharmacy 27.5; Estimated Glomerular Filt Rate 46; Glucose Random 213 mg/dL (60-115); Sodium 141 mmol/L (135-145)
[2023-08-08 16:57] VITALS: BP 173/77; PULSE 75; RESP 16; TEMP 36.6; O2SAT 97
--- NOTE | 2023-08-08 17:20 | ED_ITS ---
HPI - Female Genitourinary General Chief complaint: Urogenital-Female Stated complaint: Unable to urinate Time Seen by Provider: 08/08/23 17:09 Source: patient Mode of arrival: ambulatory Limitations: no limitations History of Present Illness HPI Narrative: 87-year-old female with pmh of recurrent UTIs, Diabetes, adn dementia presents to the ED for worsening dementia and son requesting placement for patient. Son states her primary care provider states patient should be placed in a facility. Patient dementia has worsened since June. Patient has given away her family's bank account information to sara. Due to this son states they have lost money. He states patient has been driving and forget where she is. Her primary care does not want her to drive. Patient locks out visiting nurse and prevent 8 to come into the house. Patient has not showered in 3 weeks. Related Data Home Medications Medication Instructions Recorded Confirmed lisinopril 10 mg tablet 0.5 tab PO DAILY 05/20/20 08/08/23 metoprolol succinate 50 mg 1 tab PO DAILY 05/20/20 08/08/23 tablet,extended release 24 hr aspirin 81 mg chewable tablet 1 tab PO DAILY 06/04/23 08/08/23 atorvastatin 10 mg tablet 10 mg PO DAILY 06/04/23 08/08/23 dapagliflozin propanediol 10 mg 10 mg PO DAILY 06/04/23 08/08/23 tablet (Farxiga) insulin glargine 100 unit/mL (3 20 unit subcut BEDTIME 06/04/23 08/08/23 mL) subcutaneous pen (Lantus Solostar U-100 Insulin) docusate sodium 100 mg capsule 100 mg PO BID 06/11/23 08/08/23 metformin 500 mg tablet,extended 500 mg PO BID 08/08/23 08/08/23 release 24 hr Previous Rx's Medication Instructions Recorded ferrous sulfate 325 mg (65 mg 325 mg PO BID #60 tabs 12/19/22 iron) tablet Allergies Allergy/AdvReac Type Severity Reaction Status Date / Time No Known Allergies Allergy Verified 08/08/23 10:24 [No Known Allergies*] Review of Systems 2 Review of Systems: Worsening dementia. urinary retention and constipation Yes all other systems are reviewed and are negative PMFSH Past Medical History Medical History Pulmonary embolism Unsteady gait Arthritis Acute respiratory distress Hypoxemia HTN (hypertension) Type 2 diabetes mellitus Family History Family History Family/Other Diabetes Other No family history of cancer Social History Social History Household Members: Family Housing: House Are you a primary behavioral health care coordinator to a significant other at home: No Do you presently have visiting nurse or other home services: No Alcohol intake: never Patient Tobacco Use Status: Never used Tobacco Smoked in Last 30 Days: No Use of substances other than those prescribed or required for medical reasons: No Advance Directives: Yes Advance Directives on File: Yes Advance Directives Date on File: 06/07/23 Patient : No service: No Current occupational status: retired Physical Exam 2 Vital Signs: Vital Signs: Last Vital Signs Temp 97.2 F 08/10/23 06:00 Pulse 84 08/10/23 06:00 Resp 16 08/10/23 06:00 BP 156/66 H 08/10/23 06:00 Pulse Ox 98 08/10/23 06:00 O2 Del Method Room Air 08/10/23 06:00 BMI result Body Mass Index 23.6 Const: General: cooperative, healthy appearing, comfortable, no acute distress, well developed, alert, awake and Physically active O rientation/consciousness: oriented to person, oriented to place, oriented to time and patient oriented x3 HEENT: Head: Yes normal to inspection, Yes No palpable skull fracture present, Yes normocephalic and Yes atraumatic Eyes: General: appearance normal, both eyes and all related structures Neck: Neck: Yes normal visual inspection, Yes full ROM, Yes no lymphadenopathy, Yes no meningeal signs, Yes trachea midline, Yes supple, No anterior neck swelling and No tender Chest: Chest palpation & inspection: normal inspection of the chest and normal palpation of entire chest wall Resp: Effort & Inspection: normal respiratory effort and able to speak in complete sentences Auscultation: clear to auscultation bilaterally Cardio: Jugular venous distension: no JVD Heart sounds: S1 normal heart sound present and S2 normal heart sound present GI: Inspection: Yes normal to inspection and No abdominal wall ecchymosis P alpation (GI): Soft to palpation, not firm, nontender, no guarding and not rigid : General: No CVA tenderness and Yes no CVA tenderness Back/Spine/Pelvis: Back: no CVA tenderness, No CVA tenderness and No back tenderness Skin: General skin exam: no rashes or lesions noted, elasticity normal and turgor normal Neuro: General: oriented to person, oriented to place, oriented to time, patient oriented x3, gait normal, tone normal, moves all extremities, Normal light touch and pain sensation, no meningeal signs, no focal motor deficits, CN's II-XI intact bilaterally and normal sensation to monofilament Extrem: General: Yes normal to inspection, Yes full ROM and Yes capillary refill normal Psych: Other: Patient's sounds and appears normal but son states patient can be very convincing and lie. Patient was lying and sitting opposite of what son informed me. Appearance: grossly normal Course Reevaluation(s) Reevaluation #1: The patient is an 87-year-old woman being held in the emergency room for physical therapy and case management with probable need for some kind of placement. While in the emergency room it has become apparent that she seems to have difficulty voiding. She had been straight cathed earlier. This morning she has been complaining of suprapubic discomfort. A bladder scan was done that showed a bladder volume of 477 mL. The nurse attempted to have her void spontaneously and got her out of bed to the toilet. She sat on the toilet. She was unable to void. She remained uncomfortable. On my exam the patient has excellent use of her legs with normal strength and sensation in both legs. I do not think she has anything to suggest an acute neurosurgical problem. Therefore we will put in an indwelling catheter so that she does not need repeat straight caths. Reevaluation #2: 08/09/2023 1022 --> Physician observation continues. Patient being followed by CM. Time: 10:22 Reevaluation #3: 08/10/2023. Physician observation continued. Patient not in any distress. Patient being followed by Case managment follow. Time: 07:47 Medications Administered Generic Name Dose Route Start Last Admin Trade Name Freq PRN Reason Stop Dose Admin Cefuroxime Axetil 250 mg 08/09/23 09:00 08/09/23 20:13 Cefuroxime Axetil 250 Mg Tablet PO 250 mg BID STEPHANIE Administration Docusate Sodium 100 mg 08/09/23 21:00 08/09/23 20:13 Docusate Sodium 100 Mg Capsule PO 100 mg BID STEPHANIE Administration Ferrous Sulfate 324 mg 08/09/23 21:00 08/09/23 20:12 Ferrous Sulfate 324 Mg Tablet. PO 324 mg BID STEPHANIE Administration Insulin Glargine 20 unit 08/09/23 21:00 08/09/23 20:13 Insulin Glargine,Hum.Rec.Anlog 100 Unit/Ml 10 Ml Vial SUBCUT 20 unit BEDTIME STEPHANIE Administration Metformin HCl 500 mg 08/09/23 21:00 08/09/23 20:13 Metformin Hcl Er 500 Mg Tab.Er.24h PO 500 mg BID STEPHANIE Administration Discontinued Medications Generic Name Dose Route Start Last Admin Trade Name Neptali PRN Reason Stop Dose Admin Cefuroxime Axetil 250 mg 08/08/23 21:25 08/08/23 21:44 Cefuroxime Axetil 250 Mg Tablet PO 08/08/23 21:26 250 mg ONCE ONE Administration Magnesium Hydroxide 30 ml 08/09/23 18:34 08/09/23 20:12 Milk Of Magnesia 30 Ml Oral.Susp PO 08/09/23 18:35 30 ml ONCE ONE Administration Medical Decision Making Medical Decision Making [facility] Narrative: 87-year-old female history of dementia presents ED for worsening dementia, urinary retention and constipatiion. since June. Patient's primary care provider her son Ben recommends patient be placed in a long-term facility and not be sent home. Son is healthcare proxy and power of physical therapy attendant. 2:27am: Patient positive urine infection. Abdominal CT scan negative for obstruction. Patient awaiting psych evaluation PT and field nurse case manager evaluation. Patient denied any distress. Patient started on antibiotics Differential Diagnosis Differential Diagnoses: The differential diagnosis associated with the presentation includes (Dementia, UTI, small-bowel obstruction) Admission/Observation Consideration of admission/observation: Escalation of care including admission/observation considered Consult Healthcare Provider Management of the patient was discussed with: Knitted Goods Shaper (Care team anthony) Lab Data [facility] Lab Attestation statement: I reviewed the patient's lab results. 08/08/23 10:57 08/08/23 10:57 Labs: Lab Results 08/08/23 08/08/23 08/09/23 Range/Units 10:57 17:20 08:37 WBC 6.3 (4.8-10.8) X10*3/uL RBC 4.91 (4.20-5.50) X10*6/uL Hgb 15.2 (12.0-16.0) g/dl Hct 44.8 (37.0-47.0) % MCV 91.2 (80.0-98.0) fL MCH 31.0 (27.0-33.0) pg MCHC 33.9 (31.0-35.0) g/dl RDW 12.8 (11.0-16.0) % Plt Count 137 L (160-400) X10*3/uL MPV 9.2 L (9.4-12.3) fL Immature Gran % (Auto) 0.3 (0.0-0.4) % Neut % (Auto) 74.0 H (45-73) % Lymph % (Auto) 16.5 L (20-40) % [facility] % (Auto) 7.6 (2-11) % Eos % (Auto) 1.3 (0-4) % Baso % (Auto) 0.3 (0-2) % Lymph # (Auto) 1.0 L (1.2-4.9) X10*3/uL [facility] # (Auto) 0.5 (0.1-1.2) X10*3/uL Eos # (Auto) 0.1 (0.0-0.4) X10*3/uL Baso # (Auto) 0.0 (0.0-0.2) X10*3/uL Abs Immat Gran (auto) 0.02 (0.00-0.03) X10*3/uL Absolute Neuts (auto) 4.7 (2.0-8.3) x10*3/uL Absolute Nucleated RBC 0.000 (0.0-0.012) X10*3/uL Nucleated RBC % (auto) 0.0 (0.0-0.2) /100WBC Sodium 141 (135-145) mmol/L Potassium 4.0 (3.3-5.1) mmol/L Chloride 107 (96-108) mmol/L Carbon Dioxide 27 (22-29) mmol/L Anion Gap 11 L (12-20) BUN 23 H (9-16) mg/dL Creatinine 1.11 (0.5-1.4) mg/dL Estim Creat Clear Calc 27.5 Estimated GFR 46 POC Glucose (60-115) mg/dL Random Glucose 213 H (60-115) mg/dL Calcium 9.0 (8.4-10.2) mg/dL Urine Color Yellow Urine Appearance Turbid Urine pH 6.0 (5.0-9.0) Ur Specific [place] 1.020 (1.005-1.025) Urine Protein 30 (1+) H (Neg-Trace) mg/dL Urine Glucose (UA) >=1000 H (Negative) mg/dL Urine Ketones Negative (Negative) mg/dL Urine Blood Large (3+) H (Negative) Urine Nitrite Negative (Negative) Ur Leukocyte Esterase Moderate (2+) H (Negative) Urine RBC >20 H (0-2) /HPF Urine WBC >50 H (0-5) /HPF Ur Squamous Epith Cells 6-10 (0-2) /HPF Urine Bacteria Trace (None Seen) Hyaline Casts 0-2 (0-2) /LPF COVID-19 (PETER) Negative (Negative) COVID-19 Clin Com See Note 08/09/23 Range/Units 20:10 WBC (4.8-10.8) X10*3/uL RBC (4.20-5.50) X10*6/uL Hgb (12.0-16.0) g/dl Hct (37.0-47.0) % MCV (80.0-98.0) fL MCH (27.0-33.0) pg MCHC (31.0-35.0) g/dl RDW (11.0-16.0) % Plt Count (160-400) X10*3/uL MPV (9.4-12.3) fL Immature Gran % (Auto) (0.0-0.4) % Neut % (Auto) (45-73) % Lymph % (Auto) (20-40) % [facility] % (Auto) (2-11) % Eos % (Auto) (0-4) % Baso % (Auto) (0-2) % Lymph # (Auto) (1.2-4.9) X10*3/uL [facility] # (Auto) (0.1-1.2) X10*3/uL Eos # (Auto) (0.0-0.4) X10*3/uL Baso # (Auto) (0.0-0.2) X10*3/uL Abs Immat Gran (auto) (0.00-0.03) X10*3/uL Absolute Neuts (auto) (2.0-8.3) x10*3/uL Absolute Nucleated RBC (0.0-0.012) X10*3/uL Nucleated RBC % (auto) (0.0-0.2) /100WBC Sodium (135-145) mmol/L Potassium (3.3-5.1) mmol/L Chloride (96-108) mmol/L Carbon Dioxide (22-29) mmol/L Anion Gap (12-20) BUN (9-16) mg/dL Creatinine (0.5-1.4) mg/dL Estim Creat Clear Calc Estimated GFR POC Glucose 279 H (60-115) mg/dL Random Glucose (60-115) mg/dL Calcium (8.4-10.2) mg/dL Urine Color Urine Appearance Urine pH (5.0-9.0) Ur Specific [place] (1.005-1.025) Urine Protein (Neg-Trace) mg/dL Urine Glucose (UA) (Negative) mg/dL Urine Ketones (Negative) mg/dL Urine Blood (Negative) Urine Nitrite (Negative) Ur Leukocyte Esterase (Negative) Urine RBC (0-2) /HPF Urine WBC (0-5) /HPF Ur Squamous Epith Cells (0-2) /HPF Urine Bacteria (None Seen) Hyaline Casts (0-2) /LPF COVID-19 (PETER) (Negative) COVID-19 Clin Com Independent Historian Clinical information obtained from an independent historian. History obtained from or confirmed by: Other (Son) External Record Review External record reviewed: Other (prior visits) Prescription Management I considered prescription management with: Antibiotic Discharge Plan Discharge Clinical Impression: Acute UTI, Dementia Patient Disposition: Still a Patient Prescriptions: No Action metoprolol succinate 50 mg tablet extended release 24 hr 1 tab PO DAILY lisinopril 10 mg tablet 0.5 tab PO DAILY ferrous sulfate 325 mg (65 mg iron) Tablet 325 mg PO BID Qty: 60 3RF atorvastatin 10 mg tablet 10 mg PO DAILY aspirin 81 mg tablet,chewable 1 tab PO DAILY insulin glargine [Lantus Solostar U-100 Insulin] 100 unit/mL (3 mL) insulin pen 20 unit subcut BEDTIME dapagliflozin propanediol [Farxiga] 10 mg tablet 10 mg PO DAILY docusate sodium 100 mg capsule 100 mg PO BID metformin 500 mg tablet extended release 24 hr 500 mg PO BID
[2023-08-08 17:29] LABS: Appearance Urine Turbid; Color Urine Yellow; Glucose Urine UA >=1000 mg/dL (Negative); Leukocyte Esterase Urine Moderate (2+) (Negative); Nitrite Urine Negative (Negative); UMIC TRIGGER UACC YES; Urine Blood Large (3+) (Negative); Urine Ketones Negative (Negative); Urine Protein 30 (1+) mg/dL (Neg-Trace)
[2023-08-08 17:33] LABS: Bacteria Urine Trace (None Seen); Hyaline Casts Urine 0-2 /LPF (0-2); RBC Urine >20 /HPF (0-2); UACC Culture Trigger YES; WBC Urine >50 /HPF (0-5)
--- NOTE | 2023-08-08 17:38 | PC.NURSE ---
a&ox4. vss and up to date. pt presents to the ED d/t difficulty voiding as well as urinary urgency/frequency. bladder scan prior to pt attempting to void. 200ml on bladder scan. scant amount of urine noted in urine sample cup. 180ml noted PVR. straight catheterization performed. 175ml of pale yellow urine noted immediately post catheterization. bladder scan displays 0ml post catheterization. pt denies pain. no distention noted. pt's son bedside at this time. pt's son spoke w/ this RN in regards to concern of mother. states that she has not showered in 3 weeks, had a hard time performing ADLs as well as maintaining medication compliance. ED provider notified/aware at this time. plan of care ongoing.
[2023-08-08 18:48] VITALS: BP 167/72; PULSE 73; RESP 16; TEMP 36.7; O2SAT 100
--- NOTE | 2023-08-08 19:19 | PC.NURSE ---
Report received from Maria C SHEEHAN. Pt up to bathroom at this time.
[2023-08-08 20:01] VITALS: BP 183/68; PULSE 75; RESP 14; TEMP 36.5; O2SAT 100
[2023-08-08] MEDS: cefuroxime axetiL 250 MG TABLET PO (21:44)
--- NOTE | 2023-08-08 22:15 | MHC.CM.ED ---
CM has not been consulted regarding this patient, however provider did speak with CM about plan of care. Per Husam NÚÑEZ and record review, son/HCP/POA John Lind ([phone]) patient has had worsening dementia for past 6 months. Has not showered for 3 weeks, has been driving and getting lost, is not allowing caregivers into the home and has given personal banking information to [employer] who stole money from her. Son John tells provider that his mother needs LTC and that her PCP feels she needs LTC. Order for psych consult for capacity. CM will need to speak with son in the morning, as it is 2230 and patient will remain overnight for a psych consult. Pt has [employer] Preferred insurance. CM will follow for discharge planning.
[2023-08-08 22:26] VITALS: BP 160/59; PULSE 77; RESP 16; TEMP 36.4; O2SAT 100
--- NOTE | 2023-08-08 22:34 | MHC.CM.ED ---
CM met with patient. Patient is alert to self, can tell CM about her children and where they live. Pt rivera not use any DME and denies any falls. She knows her address. States she lives alone and her son has been with her, as her is in a local senior living. Pt knows her primary care provider. Pt tells CM that her family thinks she needs help at home, but she does not agree. States she doesn't want to have people in her home and is not comfortable with them. Pt states she normally sponge bathes because she if often too tired to shower. Pt appears clean. Pt states she only drives short distances to the grocery store and is not comfortable driving long distances anymore. She tells CM that when she doesn't drive, her children will have to bring her groceries. Patient states she usually eats prepared foods that she can microwave or sometimes her daughter brings her food. Pt is unsure why she is here, but states she hasn't been feeling well and her children brought her here. CM will speak with her family in the morning, as it is already 2245. Will await psych consult for capacity. CM will follow for safe discharge plan.
[2023-08-09] VITALS (7 sets, daily range): BP systolic 126–200; BP diastolic 60–101; PULSE 70–80; RESP 14–18; TEMP 36.1–36.6; O2SAT 95–100
--- NOTE | 2023-08-09 05:23 | PC.NURSE ---
Pt complaining of significant abdominal discomfort and trouble urinating. Bladder scan showing 477 ml.
--- NOTE | 2023-08-09 05:54 | PC.NURSE ---
16fr Hernández catheter inserted per sterile technique, hospital policy and provider order. 475 ml clear yellow recovered from hernández drainage bag.
[2023-08-09 09:14] LABS: COVID-19 Test Negative (Negative); IDNOW Serial# 152EDE1D
[2023-08-09] MEDS: cefuroxime axetiL 250 MG TABLET PO ×2 (09:29→20:13)
--- NOTE | 2023-08-09 10:06 | PHA.MEDREC ---
Pharmacy Consult ? Medication Reconciliation Pharmacy has completed the medication reconciliation. Completed by Jesenia Randall
--- NOTE | 2023-08-09 13:53 | P.CNPS_ITS ---
History of Present Illness Date of Service: 08/09/2023 Chief Complaint: Unable to urinate Discussed with referring provider: Yes Sources of Information: patient interviewed, chart reviewed and crisis/core team assessment reviewed HPI Narrative: Mrs. Lind is a 87 year-old woman who was brought by her son due to concerns of increase memory/cognitive problems and concerns in terms of her ability to care for himself. Medical work up in the ED includes: cbc with no leukocitosis, low platelets, CMP with slight elevation of BUN 23, Cr. 1.1, creatinine clearance 27.5. UA shows proteins, WBC, leukocytes, blood. Culture is pending but she was started on ceftin 250mg po BID. Pt seen in the ED. She presents as pleasant. She reports lives in [place], she could not tell her address. She later stated she lived in [place]. She reports she knows this is a hospital but does not know the name nor city we are in. She reports her son brought her here about 2-4 weeks ago. She came last evening. She does report she has UTIs and takes antibiotics. She does know the month but not oriented to year. She reports she has HTN and DM, which is accurate. She reports she lives with her who is in the hospital and thinks he is coming back home. However, apparently, pt's in terminal gauger supervisor facility and not coming back to their house. Medical Evaluation Reviewed: Yes [facility] Medical History Pulmonary embolism Unsteady gait Arthritis Acute respiratory distress Hypoxemia HTN (hypertension) Type 2 diabetes mellitus Diagnostics Vital Signs (24Hr): Vital Signs - 24 hr 08/08/23 16:57 08/08/23 18:48 08/08/23 20:01 Temperature 97.9 F 98.1 F 97.7 F Pulse Rate 75 73 75 Respiratory Rate 16 16 14 Blood Pressure 173/77 H 167/72 H 183/68 H Pulse Oximetry 97 100 100 Oxygen Delivery Method Room Air Room Air Room Air 08/08/23 22:26 08/09/23 01:15 08/09/23 05:51 Temperature 97.6 F 97.7 F 97.4 F Pulse Rate 77 77 78 Respiratory Rate 16 14 14 Blood Pressure 160/59 H 128/73 189/80 H Pulse Oximetry 100 99 98 Oxygen Delivery Method Room Air Room Air Room Air 08/09/23 08:36 08/09/23 10:24 Temperature 97.9 F Pulse Rate 73 70 Respiratory Rate 16 16 Blood Pressure 156/85 H 126/65 Pulse Oximetry 98 98 Oxygen Delivery Method Room Air BMI result Body Mass Index 23.6 Labs 08/08/23 10:57 08/08/23 10:57 Labs: Laboratory Results - last 48 hr 08/08/23 08/08/23 08/09/23 10:57 17:20 08:37 WBC 6.3 RBC 4.91 Hgb 15.2 Hct 44.8 MCV 91.2 MCH 31.0 MCHC 33.9 RDW 12.8 Plt Count 137 L MPV 9.2 L Immature Gran % (Auto) 0.3 Neut % (Auto) 74.0 H Lymph % (Auto) 16.5 L [place] % (Auto) 7.6 Eos % (Auto) 1.3 Baso % (Auto) 0.3 Lymph # (Auto) 1.0 L [place] # (Auto) 0.5 Eos # (Auto) 0.1 Baso # (Auto) 0.0 Abs Immat Gran (auto) 0.02 Absolute Neuts (auto) 4.7 Absolute Nucleated RBC 0.000 Nucleated RBC % (auto) 0.0 Sodium 141 Potassium 4.0 Chloride 107 Carbon Dioxide 27 Anion Gap 11 L BUN 23 H Creatinine 1.11 Estim Creat Clear Calc 27.5 Estimated GFR 46 Random Glucose 213 H Calcium 9.0 Urine Color Yellow Urine Appearance Turbid Urine pH 6.0 Ur Specific [place] 1.020 Urine Protein 30 (1+) H Urine Glucose (UA) >=1000 H Urine Ketones Negative Urine Blood Large (3+) H Urine Nitrite Negative Ur Leukocyte Esterase Moderate (2+) H Urine RBC >20 H Urine WBC >50 H Ur Squamous Epith Cells 6-10 Urine Bacteria Trace Hyaline Casts 0-2 COVID-19 (PETER) Negative COVID-19 Clin Com See Note Imaging Radiology Impressions: ITS Impressions Abdomen/Pelvis CT 08/08/23 20:06 IMPRESSION: 1. Mild constipation. No acute process seen. 2. Bilateral renal cysts and bilateral renal calculi are stable. 3. Large soft tissue mass left lateral abdominal wall is stable. 4. Calcified density posterior to the fundal uterus is stable. 5. Small hiatal hernia. 6. Diffuse osteopenia with degenerative disc changes and facet joint arthropathy in the lower lumbar spine. Fleischner guidelines were followed. Mental Status Exam Mental Status Exam Narrative: Appearance: wearing hospital gown, fair hygiene, in NAD Behavior: cooperative, friendly Psychomotor: no agitation or retardation noted Speech: mostly clear, regular rate/rhythm/volume, spontaneous TP: mostly linear, some confabulation noted TC: feeling tired, knows she has UTI Mood: good Affect: congruent SI: denies HI: denies VH/AH: none Delusions: none Insight/judgment: impaired x 2 memory/cog: alert, oriented to month, somewhat to situation although thinks she has been here in the hospital for several weeks. She appears to have severe impairments retaining new information. She is not oriented to place, and does not remember where she lives. Medications Medications Current Medications Aspirin (Aspirin 81 Mg Tab.Chew) 81 mg PO DAILY [facility] Atorvastatin Calcium (Atorvastatin Calcium 10 Mg Tablet) 10 mg PO DAILY [facility] Cefuroxime Axetil (Cefuroxime Axetil 250 Mg Tablet) 250 mg PO BID [facility] Last Admin: 08/09/23 09:29 Dose: 250 mg Docusate Sodium (Docusate Sodium 100 Mg Capsule) 100 mg PO BID [facility] Empagliflozin (Empagliflozin 10 Mg Tablet) 10 mg PO DAILY [facility] Ferrous Sulfate (Ferrous Sulfate 324 Mg Tablet.Dr) 324 mg PO BID [facility] Insulin Glargine (Insulin Glargine,Hum.Rec.Anlog 100 Unit/Ml 10 Ml Vial) 20 unit SUBCUT BEDTIME [facility] Lisinopril (Lisinopril 5 Mg Tablet) 5 mg PO DAILY [facility]; Protocol Metformin HCl (Metformin Hcl Er 500 Mg Tab.Er.24h) 500 mg PO BID [facility] Metoprolol Succinate (Metoprolol Succinate Er 50 Mg Tab.Er.24h) 50 mg PO DAILY [facility]; Protocol Allergies Allergies Allergy/AdvReac Type Severity Reaction Status Date / Time No Known Allergies Allergy Verified 08/08/23 10:24 [No Known Allergies*] Assessment & Plan Assessment & Plan (1) Major neurocognitive disorder: Status: Acute Code(s): F03.90 - Unspecified dementia, unspecified severity, without behavioral disturbance, psychotic disturbance, mood disturbance, and anxiety Plan Mrs. Lind is a 87 year-old woman who was brought by son due to increase memory/cognitive impairments and concerns in terms of her ability to care for herself. She is confused as to where she is or how long she has been here. She does know she has UTI but suspect this was a recent information given to her that most likely will have difficulty remembering. Her attention is fairly intact and do not suspect, despite UTI that she has delirium but instead that her current presentation is most consistent with her underlying neurcognitive disorder. Pt does NOT have capacity to make medical decisions. Total time managing care of this patient today ____ minutes.
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
--- NOTE | 2023-08-09 19:05 | PC.NURSE ---
late entry: assumed care of pt at 0700. pt alert and pleasantly confused from dementia and UTI. takes pills po with water. has hernández for urinary retention, draining yellow urine. pt in and out of sleep, will ambulate self around/outside room, making sure to bring hernández bag with her. pt easily redirected back to bed multiple times. pt very confused, thinks she's at home. able to eat independently. call nowak within reach. pt makes needs known. awaiting placement for remote computer terminal operator care, plan of care ongoing. pt PT/CM, vitals Q8hrs. most recent BP elevated 200/100. provider notified and aware. report given to AGUILA Jurado.
--- NOTE | 2023-08-09 19:18 | PC.NURSE ---
LAYLAP, Antonio, aware of pts elevated BP. New orders to recheck BP in one hour.
--- NOTE | 2023-08-09 19:43 | MHC.EDTECH ---
Assist patient to change into guille top and pants, changed bed sheet, and put hospital socks on patient.
[2023-08-09] MEDS: Ferrous Sulfate 324 MG TABLET.DR PO (20:12)
[2023-08-09] MEDS: Milk of Magnesia 30 ML ORAL.SUSP PO (20:12)
[2023-08-09] MEDS: Insulin Glargine,Hum.rec.anlog 100 UNIT/ML 10 ML VIAL 20 UNIT SUBCUT (20:13)
[2023-08-09] MEDS: metFORMIN HCl ER 500 MG TAB.ER.24H PO (20:13)
[2023-08-09] MEDS: Docusate Sodium 100 MG CAPSULE PO (20:13)
[2023-08-09 20:20] LABS: Glucose, Whole Blood 279 mg/dL (60-115)
--- NOTE | 2023-08-09 20:27 | MHC.CM.ED ---
Per Ila, psychological operations officer, Pt does not have capacity to make medical decisions. HCP invoked by Dr. Connor. LTC referrals made by previous CM within 25 miles. HCP/son John Lind ([phone]) is working with Neurological Physiotherapist Fabian Silva regarding finances and MH application. Pt does have some funds to pay initially for LTC. Will need to pay down. No bed offers yet. CM following for discharge.
--- NOTE | 2023-08-09 22:55 | PC.NURSE ---
assumed care of pt at 2200, pt pleasantly confused, vss, hernández cath in place d/t urinary retention - draining well, HCP invoked. pt repositioned into overflow bed, bed locked in lowest position, and alarmed. pt 1 assist for balance.
--- NOTE | 2023-08-10 02:56 | PC.NURSE ---
Assumed care of pt at 23:30. Pt is pleasantly confused, easily to redirect. VSS. David catheter intact due to urinary retention- draining well. Bed in lowest position with alarm in place. 1 assist OOB. Call nowak within reach of pt. Pt is resting quietly in bed. CM involved with care- HCP invoked.
[2023-08-10 06:00] VITALS: BP 156/66; PULSE 84; RESP 16; TEMP 36.2; O2SAT 98
[2023-08-10 07:47] LABS: Glucose, Whole Blood 160 mg/dL (60-115)
--- NOTE | 2023-08-10 08:05 | PC.NURSE ---
PT A/O X 4 NO SOB/IBIS NOTED SPEAKS IN FULL SENTENCES. NO EDEMA NOTED. PT DENIES ANY PAIN/DISC. POC - 160 THIS AM, NO COVERAGE INDICATED. PT HAS A LUIS CATH PATENT AND DRAINING, YELLOW URINE. WILL CONTINUE TO MONITOR.
[2023-08-10 08:19] VITALS: BP 103/62; PULSE 72; RESP 16; TEMP 36.7; O2SAT 97
--- NOTE | 2023-08-10 08:22 | MHC.EDTECH ---
pt ate 100% of her breakfast and 360cc of fluids
[2023-08-10] MEDS: Metoprolol Succinate ER 50 MG TAB.ER.24H PO (08:24)
[2023-08-10] MEDS: Docusate Sodium 100 MG CAPSULE PO ×2 (08:24→20:43)
[2023-08-10] MEDS: Aspirin 81 MG TAB.CHEW PO (08:25)
[2023-08-10] MEDS: Ferrous Sulfate 324 MG TABLET.DR PO ×2 (08:25→20:43)
[2023-08-10] MEDS: metFORMIN HCl ER 500 MG TAB.ER.24H PO ×2 (08:25→20:43)
[2023-08-10] MEDS: Atorvastatin Calcium 10 MG TABLET PO (08:25)
[2023-08-10] MEDS: Empagliflozin 10 MG TABLET PO (08:25)
[2023-08-10] MEDS: cefuroxime axetiL 250 MG TABLET PO ×2 (08:25→20:44)
[2023-08-10] MEDS: lisinopriL 5 MG TABLET PO (08:25)
--- NOTE | 2023-08-10 08:40 | MHC.CM.PN ---
Addendum entered by Hayley Rodrigues 08/10/23 13:40: CM MET WITH PTS SON AT BEDSIDE HE IS AWARE [facility] IS OFFERING PENDING THE POA PAPERWORK AND A CHECK FOR $6300 [place] AND THAT [facility] IS FOLLOWING HE REPORTS HE HAS LEFT A MESSAGE FOR PTS ATTY AND IS WORKING ON GETTING PAPERWORK AND FINANCIALS IN PLACE HE REPORTS HE WOULD PREFER [facility] [place] IT IS CLOSER TO WHERE PTS IS. HE REPORTS HE WILL BE HERE THROUGH THE WEEKEND AND EXPECTS TO HAVE THINGS READY FOR PT TO TRANSFER ON SUNDAY, HE WILL THEN HAVE TO RETURN HOME SNFS UPDATED Addendum entered by Hayley Rodrigues 08/10/23 10:32: CM RECEIVED A CALL FROM JEANNINE AT [facility] [phone] UPDATES PROVIDED Original Note: PT AWAITING LTC PLACEMENT REFERRALS OUT, [facility] AND [facility] THE ONLY SNFS WILLING TO FOLLOW [facility] HAS INDICATED THEIR BUSINESS OFFICE WILL REVIEW FINANCIALS AND, DEPENDING ON RESULTS, MAY BE ABLE TO OFFER A BED ON SUNDAY.
--- NOTE | 2023-08-10 09:30 | MHC.EDTECH ---
pt is washed up and sitting in the recliner chair. This tech did a complete bed change
[2023-08-10 11:27] LABS: Glucose, Whole Blood 225 mg/dL (60-115)
--- NOTE | 2023-08-10 11:27 | MHC.EDTECH ---
POC AT 11:30AM = 225
--- NOTE | 2023-08-10 11:45 | MHC.EDTECH ---
Pt rang the call nowak to be assisted to the bathroom. Pt had a medium bowel movement. Pt did very well walking to the bathroom as a standby assist.
--- NOTE | 2023-08-10 12:15 | MHC.EDTECH ---
Pt ate 100% of her lunch and 240cc of fluids.
--- NOTE | 2023-08-10 13:15 | PC.NURSE ---
PT'S SON IS AT BEDSIDE.
[2023-08-10 14:00] VITALS: BP 131/58; PULSE 79; RESP 18; TEMP 36.6; O2SAT 97
--- NOTE | 2023-08-10 14:45 | MHC.EDTECH ---
hernández emptied = 350cc
--- NOTE | 2023-08-10 19:19 | PC.NURSE ---
This RN took over pt care @ 1900. Pt continuously saying I want to go home. Pt advised she has to stay in the hospital. Pt ambulated to the restroom with 1 assist. Plan of care ongoing.
[2023-08-10 20:41] LABS: Glucose, Whole Blood 243 mg/dL (60-115)
[2023-08-10] MEDS: Insulin Glargine,Hum.rec.anlog 100 UNIT/ML 10 ML VIAL 20 UNIT SUBCUT (20:43)
--- NOTE | 2023-08-10 20:48 | PC.NURSE ---
Pt medicated per aug. Pt in bed watching tv. Plan of care ongoing.
[2023-08-10 21:41] VITALS: BP 151/72; PULSE 79; RESP 17; TEMP 36.3; O2SAT 94
[2023-08-11 07:55] LABS: Glucose, Whole Blood 106 mg/dL (60-115)
[2023-08-11] MEDS: cefuroxime axetiL 250 MG TABLET PO ×2 (08:31→20:57)
[2023-08-11] MEDS: metFORMIN HCl ER 500 MG TAB.ER.24H PO ×2 (08:31→20:57)
[2023-08-11] MEDS: Metoprolol Succinate ER 50 MG TAB.ER.24H PO (08:31)
[2023-08-11 08:32] VITALS: BP 163/83; PULSE 64; RESP 18; TEMP 36.9; O2SAT 97
[2023-08-11] MEDS: Aspirin 81 MG TAB.CHEW PO (08:32)
[2023-08-11] MEDS: Ferrous Sulfate 324 MG TABLET.DR PO ×2 (08:32→20:57)
[2023-08-11] MEDS: lisinopriL 5 MG TABLET PO (08:32)
[2023-08-11] MEDS: Empagliflozin 10 MG TABLET PO (08:32)
[2023-08-11] MEDS: Docusate Sodium 100 MG CAPSULE PO ×2 (08:32→20:57)
[2023-08-11] MEDS: Atorvastatin Calcium 10 MG TABLET PO (08:32)
[2023-08-11 12:05] LABS: Glucose, Whole Blood 172 mg/dL (60-115)
[2023-08-11 14:00] VITALS: BP 144/78; PULSE 80; RESP 18; TEMP 37.1; O2SAT 97
[2023-08-11 19:40] LABS: Glucose, Whole Blood 233 mg/dL (60-115)
--- NOTE | 2023-08-11 19:59 | PC.NURSE ---
This RN took over pt care @ 1900. Pt requested and assisted out of bed by tech and into bedside chair. Pt watching tv and resting quietly. Plan of care ongoing.
--- NOTE | 2023-08-11 20:38 | PC.NURSE ---
Pts son arrived to overflow to bring pt slippers. Pts son left after about 5 mins. Plan of care ongoing.
[2023-08-11] MEDS: Insulin Glargine,Hum.rec.anlog 100 UNIT/ML 10 ML VIAL 20 UNIT SUBCUT (20:56)
--- NOTE | 2023-08-11 21:00 | PC.NURSE ---
Pt medicated per aug. Pt requesting and assisted to bed by tech. Plan of care ongoing.
--- NOTE | 2023-08-11 21:52 | PC.NURSE ---
Pt attempting to get out of bed. Pt redirected into bed. Bed alarm reactivted. Plan of care ongoing.
--- NOTE | 2023-08-11 22:19 | PC.NURSE ---
Pt attempting to get out of bed again. Pt redirected back into bed. Pt requesting something for neck pain. Provider Maribeth made aware. Plan of care ongoing.
[2023-08-11 22:39] VITALS: BP 113/57; PULSE 58; RESP 17; TEMP 37.1; O2SAT 95
[2023-08-11] MEDS: Acetaminophen 325 MG TABLET 975 MG PO (22:41)
--- NOTE | 2023-08-11 23:55 | PC.NURSE ---
Pt attempting to get out of bed. Pt confused thinking this is her home and the staff is breaking into her home. Pt redirected back into bed and this RN explained pt is in the hospital not at home. Plan of care ongoing.
--- NOTE | 2023-08-12 00:11 | MHC.EDTECH ---
This tech took over care of patient at 2300,hourly rounds completed,patient tried to get OOB was redirectable ,patient has a David in place and is clean and dry. Bed alarm on for safety and call nowak in reach
--- NOTE | 2023-08-12 01:49 | MHC.EDTECH ---
Hourly rounds competed,patient is sleeping comfortably,bed alarm on for safety and call nowak in reach
[2023-08-12 06:00] VITALS: BP 130/58; PULSE 72; RESP 20; TEMP 36.3; O2SAT 93
[2023-08-12 07:57] LABS: Glucose, Whole Blood 105 mg/dL (60-115)
[2023-08-12] MEDS: metFORMIN HCl ER 500 MG TAB.ER.24H PO ×2 (08:17→20:49)
[2023-08-12] MEDS: Docusate Sodium 100 MG CAPSULE PO ×2 (08:17→20:49)
[2023-08-12] MEDS: Metoprolol Succinate ER 50 MG TAB.ER.24H PO (08:17)
[2023-08-12] MEDS: Ferrous Sulfate 324 MG TABLET.DR PO ×2 (08:17→20:49)
[2023-08-12] MEDS: Aspirin 81 MG TAB.CHEW PO (08:17)
[2023-08-12] MEDS: cefuroxime axetiL 250 MG TABLET PO ×2 (08:17→20:49)
[2023-08-12] MEDS: lisinopriL 5 MG TABLET PO (08:17)
[2023-08-12] MEDS: Atorvastatin Calcium 10 MG TABLET PO (08:17)
[2023-08-12] MEDS: Empagliflozin 10 MG TABLET PO (08:18)
[2023-08-12 11:46] LABS: Glucose, Whole Blood 193 mg/dL (60-115)
[2023-08-12 14:00] VITALS: BP 112/55; PULSE 70; RESP 16; TEMP 36.3; O2SAT 96
[2023-08-12 16:46] LABS: Glucose, Whole Blood 69 mg/dL (60-115)
[2023-08-12 20:23] LABS: Glucose, Whole Blood 206 mg/dL (60-115)
[2023-08-12] MEDS: Insulin Glargine,Hum.rec.anlog 100 UNIT/ML 10 ML VIAL 20 UNIT SUBCUT (20:49)
[2023-08-12 23:19] VITALS: BP 147/76; PULSE 86; RESP 17; TEMP 36.7; O2SAT 97
[2023-08-13 07:27] LABS: Glucose, Whole Blood 138 mg/dL (60-115)
[2023-08-13 07:33] VITALS: BP 123/56; PULSE 100; RESP 16; TEMP 36.6; O2SAT 96
[2023-08-13] MEDS: lisinopriL 5 MG TABLET PO (08:12)
[2023-08-13] MEDS: Metoprolol Succinate ER 50 MG TAB.ER.24H PO (08:12)
[2023-08-13] MEDS: metFORMIN HCl ER 500 MG TAB.ER.24H PO ×2 (08:12→21:23)
[2023-08-13] MEDS: Empagliflozin 10 MG TABLET PO (08:12)
[2023-08-13] MEDS: Docusate Sodium 100 MG CAPSULE PO ×2 (08:12→21:23)
[2023-08-13] MEDS: Atorvastatin Calcium 10 MG TABLET PO (08:12)
[2023-08-13] MEDS: Aspirin 81 MG TAB.CHEW PO (08:12)
[2023-08-13] MEDS: cefuroxime axetiL 250 MG TABLET PO ×2 (08:12→21:23)
[2023-08-13] MEDS: Ferrous Sulfate 324 MG TABLET.DR PO ×2 (08:12→21:23)
--- NOTE | 2023-08-13 08:21 | PC.NURSE ---
resting quietly in bed, watching tv at this time. hernández remains in place w/ approx 50mLs output. medicated per the MAR, offering no complaints.
[2023-08-13 11:23] LABS: Glucose, Whole Blood 132 mg/dL (60-115)
--- NOTE | 2023-08-13 11:37 | MHC.CM.ED ---
Addendum entered by Jagruti Morel 08/13/23 16:15: [facility] is unable to offer a bed. Original Note: Patient remains in ER overflow. Met with patient, son Ben and [id number] Eleonora. Ben did not like [facility]. Ben and Eleonora will be [facility]. Ben is still hoping patient can go to [facility]. However, the facility still does not have a bed available. Continue to monitor for d/c needs.
--- NOTE | 2023-08-13 13:46 | PC.NURSE ---
Addendum entered by Jenn Morales 08/13/23 14:08: patient reporting she has not had a bowel movement in 3 days. provider aware, miralax ordered Original Note: one assist to recliner at this time
[2023-08-13 14:05] VITALS: BP 106/56; PULSE 88; RESP 14; TEMP 36.6; O2SAT 94
[2023-08-13] MEDS: polyethylene glycoL 3350 17 GM POWD.PACK PO (14:28)
[2023-08-13 20:33] VITALS: BP 116/54; PULSE 72; RESP 18; TEMP 36.6; O2SAT 95
[2023-08-13 20:37] LABS: Glucose, Whole Blood 134 mg/dL (60-115)
--- NOTE | 2023-08-13 20:55 | PC.NURSE ---
Addendum entered by Erin Young RN 08/13/23 20:57: Awaiting SQ needle attachment requested (none present on unit at this time) to administer. Original Note: Assumed care of patient at 19:00. Pt is A&Ox4. VSS. Pt has hx DM, evening POC 134. Scheduled lantus ordered. Awaiting delivery of SQ needle attach
[2023-08-13] MEDS: Insulin Glargine,Hum.rec.anlog 100 UNIT/ML 10 ML VIAL 20 UNIT SUBCUT (21:23)
--- NOTE | 2023-08-13 21:28 | PC.NURSE ---
Patient POCs trend reviewed prior to med administration; pt given and ate half of a tuna sandwich without issues prior to metformin and lantus administration. Next POC due before breakfast.
--- NOTE | 2023-08-13 23:23 | PC.NURSE ---
Patient woke up and attempted to get OOB as evidenced by bed alarm sounding. Pt confused, asking where her brother was. Pt A&Ox2 to self and year, forgot she was in the hospital. Patient assisted back into bed, reoriented, and warm blanket provided. Bed alarm and safety measures remain in place. Will continue to monitor patient safety and comfort for remainder of story writer's scheduled care.
[2023-08-14 05:22] VITALS: BP 128/65; PULSE 87; RESP 14; TEMP 36.6; O2SAT 93
[2023-08-14 07:25] LABS: Glucose, Whole Blood 70 mg/dL (60-115)
[2023-08-14] MEDS: Aspirin 81 MG TAB.CHEW PO (07:26)
[2023-08-14] MEDS: Docusate Sodium 100 MG CAPSULE PO ×2 (07:26→21:19)
[2023-08-14] MEDS: Empagliflozin 10 MG TABLET PO (07:27)
[2023-08-14] MEDS: lisinopriL 5 MG TABLET PO (07:27)
[2023-08-14] MEDS: Ferrous Sulfate 324 MG TABLET.DR PO ×2 (07:27→21:19)
[2023-08-14] MEDS: Metoprolol Succinate ER 50 MG TAB.ER.24H PO (07:27)
[2023-08-14] MEDS: cefuroxime axetiL 250 MG TABLET PO ×2 (07:27→21:19)
[2023-08-14] MEDS: metFORMIN HCl ER 500 MG TAB.ER.24H PO ×2 (07:27→21:19)
[2023-08-14] MEDS: Atorvastatin Calcium 10 MG TABLET PO (07:28)
--- NOTE | 2023-08-14 10:06 | MHC.CM.ED ---
Patient remains in ER overflow. Received notification from [facility] that they are unable to offer a bed at this time. Received voicemail from patient's son, Ben, stating they would like to accept bed at [facility]. [facility] will reach out to family. Anticipate patient will transfer to [facility] via BLS tomorrow 08/15 at 10am. Cinthya GERMAIN booked. Med nec with chart. Patient, son Ben, Davey RN and Samara NÚÑEZ aware. Continue to monitor for d/c needs.
[2023-08-14] MEDS: polyethylene glycoL 3350 17 GM POWD.PACK PO (12:49)
[2023-08-14 14:00] VITALS: BP 109/53; PULSE 80; RESP 16; TEMP 36.1; O2SAT 95
[2023-08-14 16:40] LABS: Glucose, Whole Blood 97 mg/dL (60-115)
--- NOTE | 2023-08-14 19:11 | PC.NURSE ---
This RN took over pt care @ 1900. Pt resting in bed quietly. Plan of care ongoing.
[2023-08-14 21:13] VITALS: BP 115/56; PULSE 84; RESP 18; TEMP 36.2; O2SAT 94
[2023-08-14 21:15] LABS: Glucose, Whole Blood 143 mg/dL (60-115)
[2023-08-14] MEDS: Insulin Glargine,Hum.rec.anlog 100 UNIT/ML 10 ML VIAL 20 UNIT SUBCUT (21:21)
--- NOTE | 2023-08-14 21:22 | PC.NURSE ---
Pt medicated per aug. Plan of care ongoing.
--- NOTE | 2023-08-14 22:21 | PC.NURSE ---
Pt attempting to get out of bed. Pt stating she needs to void. This RN explained pt has hernández in place. Pt redirected and assisted into bed and boosted for comfort. Plan of care ongoing.
--- NOTE | 2023-08-15 02:05 | PC.NURSE ---
Pt very confused, continuously attempting to get out of bed. Pt yelling across unit asking are the doors locked, what are we doing next Pt redirected back into bed. Plan of care ongoing.
[2023-08-15 06:00] VITALS: BP 117/69; RESP 18; TEMP 36.4; O2SAT 98
--- NOTE | 2023-08-15 07:40 | PC.NURSE ---
pts poc is 63, spoke with provider-jennifer and it was decided to hold this mornings metformin, pt will be given juice with her am meds while awaiting breakfast before discharge
[2023-08-15 07:43] LABS: Glucose, Whole Blood 63 mg/dL (60-115)
[2023-08-15] MEDS: lisinopriL 5 MG TABLET PO (07:51)
[2023-08-15] MEDS: Empagliflozin 10 MG TABLET PO (07:51)
[2023-08-15] MEDS: Ferrous Sulfate 324 MG TABLET.DR PO (07:51)
[2023-08-15] MEDS: Docusate Sodium 100 MG CAPSULE PO (07:51)
[2023-08-15] MEDS: Metoprolol Succinate ER 50 MG TAB.ER.24H PO (07:51)
[2023-08-15] MEDS: cefuroxime axetiL 250 MG TABLET PO (07:51)
[2023-08-15] MEDS: Aspirin 81 MG TAB.CHEW PO (07:51)
[2023-08-15] MEDS: Atorvastatin Calcium 10 MG TABLET PO (07:52)
--- NOTE | 2023-08-15 07:56 | PC.NURSE ---
patient alert to person/place/pt aware it is valentines day as well, pt sitting up in bed, eating breakfast, vss, respirations equal and non labored, hernández cath patient/draining clear yellow urine, pt took meds whole with orange juice. pt to discharge at 10 am, will continue to monitor
--- NOTE | 2023-08-15 09:01 | PC.NURSE ---
report this nurse attempted to give report to [facility] where the patient is discharging to, was unable to get through to any of the nursing units, this nurse left a voicemail for the assistant chief nursing officer to have the unit the patient is going to call back for report. will notify ems of this as well.
--- NOTE | 2023-08-15 10:18 | PC.NURSE ---
[facility] and report was given to the unit nurse after the patient left this facility
== END 2023-08-15 09:58 ==
PROVIDERS: Physician Assistant Medical; Emergency Provider Student in an Organized Health Care Education/Training Program; PCP Internal Medicine
DX: N39.0 Urinary tract infection, site not specified (principal); F03.90 Unspecified dementia, unspecified severity, without behavioral disturbance, psychotic disturbance, mood disturbance, and anxiety; Z79.899 Other long term (current) drug therapy; Z11.52 Encounter for screening for COVID-19
CPT/HCPCS: 36415; 51701; 51798; 74176; 80048; 81001; 82947; 85025; 87086; 87635; 99285

== ENCOUNTER → 2023-08-08 16:49 | Outpatient (BNV) | payer MEDICARE, SELFPAY | PROVIDERS: Emergency Provider Student in an Organized Health Care Education/Training Program; PCP Internal Medicine; Visit Provider Social Worker | DX: F03.90 Unspecified dementia, unspecified severity, without behavioral disturbance, psychotic disturbance, mood disturbance, and anxiety (principal) | CPT/HCPCS: 99285 ==